=== PATIENT | female | born 1940 | race Caucasian/White ===

== ENCOUNTER 2019-10-09 12:36 | Outpatient (CLI) | payer OTHER, SELFPAY ==
--- NOTE | ~2019-10-09 | US_ITS ---
EXAMINATION: US art doppler w press LE BI EXAM DATE: 10/09/2019 14:08 INDICATION: Carotid bruit. Leg edema and discoloration. Diabetes. Claudication at one block. TECHNIQUE: Segmental pressures and plethysmographic and Doppler waveforms of the brachial and lower e xtremity arteries were obtained. There is no prior study for comparison. FINDINGS: Right and left brachial artery pressures of 144 mm Hg and 162 mm Hg, respectively, are concordant (no rmal difference <= 30 mmHg). RIGHT LEG: The ankle-brachial index (GILDARDO) is 0.65 (normal >= 0.9-1). The great toe-brachial index (TBI) is 0.33 (normal >= 0.65). The lower extremity ratios, segmental pressure gradients as follows; Proximal superficial femoral artery:- 0.51 (83 mmHg). Distal superficial femoral artery: ----- 0.49 (80 mmHg). Popliteal: 0.74 (120 mmHg). Dorsalis pedis: 0.41 (67 mmHg). Posterior tibial: 0.65 (106 mmHg). (Normal gradients <= 20-30 mmHg between adjacent levels on the same leg or the same levels on the two legs). Arterial waveforms are monophasic. LEFT LEG: The ankle-brachial index (GILDARDO) is 0.62 (normal >= 0.9-1). The great toe-brachial index (TBI) is 0.35 (normal >= 0.65). The lower extremity ratios, segmental pressure gradients as follows; Proximal superficial femoral artery:- Could not obtain ( mmHg). Distal superficial femoral artery: ----- 0.56 (90 mmHg). Popliteal: 0.52 (84 mmHg). Dorsalis pedis: 0.62 (101 mmHg). Posterior tibial: 0.49 (79 mmHg). (Normal gradients <= 20-30 mmHg between adjacent levels on the same leg or the same levels on the two legs). Arterial waveforms are monophasic. IMPRESSION: 1. Right ankle-brachial index 0.65, moderately decreased. 2. Left ankle-brachial index 0.62, moderately decreased. 3. Segmental pressures as above. Monophasic waveforms. Reviewed, dictated and finalized at location A.
--- NOTE | ~2019-10-09 | US_ITS ---
EXAMINATION: US carotid duplex BI DATE: 10/09/2019 14:07 INDICATION: Carotid bruit. TECHNIQUE: Grayscale, color Doppler, and pulsed Doppler images of the cervical carotid arteries were obtained. The degree of vessel stenosis is placed in one of the following categories: normal, <50%, 5 0-69%, >=70% but less than near-occlusion, near-occlusion, or total occlusion. Note that percent sten osis relative to normal distal artery lumen diameter is indirectly measured from velocity measurement s as described by Fili, et al. Radiology 2003; 229:340-346. COMPARISON: None. FINDINGS: RIGHT: The right common carotid artery (CCA) peak systolic velocity (PSV) is 82 cm/s. The right internal car otid artery (ICA) PSV is 79 cm/s. The right ICA end-diastolic velocity (EDV) is 14 cm/s. The right IC A/CCA PSV ratio is 1.0. Grayscale and color Doppler images yield an estimate of <50% diameter reducti on from plaque in the ICA. There is antegrade flow in the right vertebral artery. LEFT: The left CCA PSV is 89 cm/s. The left ICA PSV is 123 cm/s. The left ICA EDV is 16 cm/s. The left ICA/ CCA PSV ratio is 1.4. Grayscale and color Doppler images yield an estimate of <50% diameter reduction from plaque in the ICA. There is antegrade flow in the left vertebral artery. IMPRESSION: 1. <50% stenosis in the right internal carotid artery. 2. <50% stenosis in the left internal carotid artery. Reviewed, dictated and finalized at location A.
--- NOTE | ~2019-10-09 | US_ITS ---
EXAMINATION: US venous doppler [facility] DATE: 10/09/2019 14:07 INDICATION: Left lower limb swelling. TECHNIQUE: Grayscale ultrasound images without and with compression and Doppler ultrasound images of the left lower extremity veins were obtained. COMPARISON: None. FINDINGS: The visualized portions of left common femoral vein, profunda (deep) femoral vein, femoral vein, popl iteal vein, peroneal veins, posterior tibial veins, and greater saphenous vein outflow are patent. Th ere is thrombus in a left gastrocnemius vein. IMPRESSION: 1. Deep vein thrombosis involving a left gastrocnemius vein. Reviewed, dictated and finalized at location A.
== END 2019-10-09 12:37 | disposition home or self-care (01) ==
PROVIDERS: PCP Physician Assistant; Visit Provider Nurse Practitioner Adult Health
DX: R09.89 Other specified symptoms and signs involving the circulatory and respiratory systems (principal); R60.0 Localized edema; L81.9 Disorder of pigmentation, unspecified; I82.462 Acute embolism and thrombosis of left calf muscular vein; I65.23 Occlusion and stenosis of bilateral carotid arteries
CPT/HCPCS: 93880; 93923; 93971

== ENCOUNTER 2020-01-05 10:37 | Outpatient (CLI) | payer OTHER, SELFPAY ==
--- NOTE | ~2020-01-05 | NM_ITS ---
EXAMINATION: NM hepatobiliary wo pharm DATE: 01/05/2020 12:17 INDICATION: Right upper quadrant abdominal pain COMPARISON: CT dated 01/13/2019 TECHNIQUE: 4.7 mCi Tc-99m mebrofenin (Choletec) was administered intravenously. Scintigraphic images of the abdomen were obtained for one hour. . FINDINGS: There is normal clearance of radiotracer from the blood pool. There is homogeneous tracer uptake by t he liver. Activity progresses to the common bile duct by 15 minutes first activity seen in the bowel at 20 minutes. There is progressive clearance of activity extending to the bowel through the 60 lanre ovi of the study with no evident gallbladder activity. Correlation with prior CT demonstrates changes of prior cholecystectomy with suture/surgical clip at the termination of the remaining cystic duct a s well as a small amount of pneumobilia likely related to associated sphincterotomy. IMPRESSION: 1. Mild post cholecystectomy hepatobiliary scan. Reviewed, dictated and finalized at location A.
== END 2020-01-05 10:38 | disposition home or self-care (01) ==
LOC: ANHIMG 10:49
PROVIDERS: PCP Physician Assistant; Visit Provider Surgery
DX: R10.11 Right upper quadrant pain (principal); Z90.49 Acquired absence of other specified parts of digestive tract
CPT/HCPCS: 78226; A9537

== ENCOUNTER → 2020-01-08 09:11 | Outpatient (CLI) | payer OTHER, SELFPAY ==
--- NOTE | ~2020-01-08 | DEXA_ITS ---
Bone Density Report Name: Lina Little Age: 79 Sex: Female Ethnicity: White Date of : 1940 Indication: postmenopausal; screening for osteoporosis; height loss; inflammatory bowel disease; prior fracture; Referring Provider: VICKIE, LUH Study: Bone densitometry was performed. Exam Date: January 08, 2020 Accession number: [id number] Bone Density: Region BMD T-score Z-score Classification AP Spine (L1, L4) 1.027 -0.1 2.6 Normal Femoral Neck (Left) 0.603 -2.2 0.1 Osteopenia Total Hip (Left) 0.746 -1.6 0.5 Osteopenia World Health Organization criteria for BMD impression classify patients as: Normal (T-score at or above -1.0), Osteopenia (T-score between -1.0 and -2.5), or Osteoporosis (T-score at or below -2.5). 10-year Fracture Risk: FRAX not reported because: Prior hip or vertebral fracture Clinical Information Provided by Patient: Have had a previous hip or vertebral fracture Has had a low trauma fracture Has used the following medications: Vitamin D, Calcium Has the following medical conditions: Inflammatory bowel diseases Patient maximum height was 62 Menopause Age: 44 No regular weight bearing exercise Drinks caffeinated beverages Onset of menses at age 9 Number of children 3 Impression: The patient has low bone mass, based on the Left Femoral Neck T-score. The patient has risk factors, including: previous fracture. Discussion: INCREASED RISK OF FRACTURE DUE TO HISTORY OF FRACTURE. The patient's previous fracture puts the patient at high risk of a future fracture. In untreated patients, the risk of osteoporotic fracture increases approximately two-fold for each 1.0 SD decrease in T-score. Low bone density is not the only risk factor for fracture; also consider factors such as patient's age, frailty or poor health, risk of falling, risk of injury, previous osteoporotic fracture, family history of osteoporosis, cigarette smoking, low body weight, etc. Not everyone with a low trauma fracture has osteoporosis; osteomalacia and other metabolic bone disorders should also be considered. Patients who have osteoporosis should be evaluated for specific diseases and conditions (secondary causes) that may cause or contribute to bone loss and fracture risk. National Osteoporosis Foundation (NOF) recommends pharmacologic intervention for patients with a prior hip or vertebral fracture regardless of BMD T-score. The patient should follow a healthful lifestyle (good nutrition with adequate calcium and vitamin D, and appropriate weight-bearing exercise). Follow-Up: Consider a repeat BMD and Vertebral Fracture Assessment (VFA) exam in 2 years or sooner if medically necessary, to reassess this patient's status. Reported by: [place] on 01/08/2020 9:49:00 AM. Reviewed, dictated and finalized at location A. M
== END ==
PROVIDERS: PCP Physician Assistant; Visit Provider Physician Assistant
DX: Z78.0 Asymptomatic menopausal state (principal); M85.852 Other specified disorders of bone density and structure, left thigh
CPT/HCPCS: 77080

== ENCOUNTER 2020-01-09 07:44 | Outpatient (CLI) | payer OTHER, SELFPAY ==
--- NOTE | ~2020-01-09 | US_ITS ---
EXAMINATION: US abdomen limited DATE: 01/09/2020 08:35 INDICATION: Right upper quadrant abdominal pain. TECHNIQUE: Multiple grayscale and Doppler ultrasound images of the abdomen were obtained. COMPARISON: CT dated 01/13/2019 and HIDA scan dated 01/05/2020 FINDINGS: The visualized proximal to mid inferior vena cava. 9 mm anechoic cyst at the head of the pancreas whi ch abuts the proximal portal vein without associated soft tissue component. Remainder of the pancreas appears normal with homogeneous increased echogenicity. Liver has normal echogenicity and contour, w ith a smooth surface. No liver lesion identified. No intrahepatic biliary duct dilation suspected. Po rtal venous flow was seen in the hepatopetal, normal direction and has normal Doppler waveform. The r ight kidney measures 10.5 cm in length with normal contour and echogenicity and no hydronephrosis. Ag ain seen is a small amount of perinephric fluid along the upper pole of the right kidney. Upon review of prior CT what is likely a poorly visualized decompressed gallbladder with thickened wa ll is seen at the gallbladder fossa. On the prior study the gallbladder similarly decompressed measur ing approximately 3.3 x 1.3 cm with tiny focus of internal pneumobilia and nearly indistinguishable f rom the adjacent duodenum. Given the similar appearance on both the current ultrasound and prior CT a nd the lack of appreciable radiotracer cannulation on the intervening HIDA scan this would be most co nsistent with a scarred down gallbladder related to chronic cholecystitis. On a couple of CT images t he wall of the gallbladder appears contiguous with the duodenum giving the initial appearance on CT t hat it was a portion of the duodenum. This along with the presence of pneumobilia suggests the possib ility of a chronic bilioenteric fistula between the fundus of the gallbladder and the duodenal bulb. IMPRESSION: 1. Persistently small decompressed gallbladder with wall thickening, pneumobilia on prior CT and no a ccumulation of radiotracer on intervening HIDA scan suggesting a scarred down gallbladder related to chronic cholecystitis and with potential for biliary enteric fistula. 2. Nonspecific 9 mm simple appearing anechoic cyst at the head of the pancreas which appears subtly p resent on prior CT. The differential diagnosis includes pseudocyst, intraductal papillary mucinous ne oplasm (IPMN), mucinous cystic neoplasm (MCN), and the less common serous cystadenoma and neuroendocr ine tumor. Correlate for history of pancreatitis. Consider two-year follow-up MRI. Reviewed, dictated and finalized at location B. IMPRESSION: 1. Persistently small decompressed gallbladder with wall thickening, pneumobili a on prior CT and no accumulation of radiotracer on intervening HIDA scan sugge sting a scarred down gallbladder related to chronic cholecystitis and with pote ntial for biliary enteric fistula. 2. Nonspecific 9 mm simple appearing anechoic cyst at the head of the pancreas which appears subtly present on prior CT. The differential diagnosis includes p seudocyst, intraductal papillary mucinous neoplasm (IPMN), mucinous cystic neop lasm (MCN), and the less common serous cystadenoma and neuroendocrine tumor. Co rrelate for history of pancreatitis. Consider two-year follow-up MRI.
== END 2020-01-09 07:45 ==
PROVIDERS: PCP Physician Assistant; Visit Provider Surgery
DX: R10.11 Right upper quadrant pain (principal); K82.9 Disease of gallbladder, unspecified; K86.2 Cyst of pancreas
CPT/HCPCS: 76705

== ENCOUNTER 2020-01-19 10:16 | Outpatient (CLI) | payer OTHER, SELFPAY ==
--- NOTE | ~2020-01-19 | CT_ITS ---
EXAMINATION: CT abdomen w con DATE: 01/19/2020 10:44 INDICATION: Gallbladder fistula TECHNIQUE: Computed tomography (CT) of the abdomen was performed with 100 cc Omnipaque 350 intravenou s contrast. Automated exposure control and iterative reconstruction technique were employed. Exam dos e: 386.96 mGy-cm total exam DLP. COMPARISON: 01/13/2019 CT abdomen pelvis FINDINGS: The lung bases are clear of infiltrate or consolidation. Cardiomegaly. No pericardial or pl eural effusion. Small sliding hiatal hernia. There is pneumobilia, likely secondary to sphincterotomy and/or cholecystectomy. Bile ducts are of no rmal caliber. No hepatic space-occupying mass lesion. Normal splenic size. No pancreatic calcifications consistent with chronic pancreatitis. The adrenal glands are normal. Occasional small bilateral renal cysts. No urinary tract calculus or hydroureteronephrosis is evident. Prominent calcification of the descending thoracic and abdominal aorta and iliac arteries and at the origins of the celiac and superior mesenteric arteries. No intraperitoneal or retroperitoneal mass le ganesh or adenopathy or ascites. Normal appendix. Diffuse osteopenia. Multilevel degenerative disc disease throughout the lumbar and lumbosacral spine, most severe at L5-S1. There is degenerative change at the apophyseal joints with associated grade 1 anterolisthesis at L4-5. Chronic compression fracture deformity at inferior vertebral endplate of T12. Chronic compression deformity at the superior vertebral endplate of L3. IMPRESSION: Status post cholecystectomy; again noted is pneumobilia, likely secondary to sphincterot maik and/or cholecystectomy Occasional bilateral small renal cysts Compression fracture deformities of T12 and L3 Multilevel degenerative disc disease of the lumbar and lumbosacral spine Grade 1 anterolisthesis at L4-5 due to degenerative change at the apophyseal joints Reviewed, dictated and finalized at Location A. Reviewed, dictated and finalized at location A. IMPRESSION: Status post cholecystectomy; again noted is pneumobilia, likely se condary to sphincterotomy and/or cholecystectomy Occasional bilateral small renal cysts Compression fracture deformities of T12 and L3 Multilevel degenerative disc disease of the lumbar and lumbosacral spine Grade 1 anterolisthesis at L4-5 due to degenerative change at the apophyseal jessica ints
[2020-01-19 10:38] LABS: Estimated Glomerular Filt Rate > 60
== END 2020-01-19 10:17 | disposition home or self-care (01) ==
LOC: ANHIMG 10:21
PROVIDERS: PCP Physician Assistant; Visit Provider Surgery
DX: K82.3 Fistula of gallbladder (principal); Z90.49 Acquired absence of other specified parts of digestive tract; M48.54XA Collapsed vertebra, not elsewhere classified, thoracic region, initial encounter for fracture; M51.36 Other intervertebral disc degeneration, lumbar region; M43.16 Spondylolisthesis, lumbar region
CPT/HCPCS: 74160; Q9967

== ENCOUNTER 2020-07-03 10:15 | Observation (INO) | payer OTHER, SELFPAY ==
[2020-07-03] VITALS (29 sets, daily range): BP systolic 124–164; BP diastolic 36–73; PULSE 57–78; RESP 12–30; TEMP 36.3–37.1; O2SAT 95–100; BMI 26.4
--- NOTE | ~2020-07-03 | XR_ITS ---
EXAMINATION: XR chest 1V portable EXAM DATE: 07/03/2020 15:12 INDICATION: History atrial fibrillation, hypertension. Right lower quadrant pain with vomiting. Const ipation. TECHNIQUE: Portable AP frontal chest x-ray was obtained. Comparison is made to prior examination from 01/12/2019. FINDINGS: The lungs are clear. There are no pleural effusions. Mild cardiomegaly. There is aortic a rteriosclerosis. There is no pneumothorax suspected. Right greater than left shoulder osteoarthrit is. IMPRESSION: No acute cardiopulmonary findings. Reviewed, dictated and finalized at location B. 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
--- NOTE | ~2020-07-03 | CT_ITS ---
EXAMINATION: CT abdomen pelvis w con DATE: 07/03/2020 14:58 INDICATION: Abdominal pain. Nausea, vomiting, diarrhea. TECHNIQUE: Computed tomography (CT) of the abdomen and pelvis was performed with 100 cc Omnipaque 350 intravenous contrast. Automated exposure control and iterative reconstruction technique were employe d. Exam dose: 595.51 mGy-cm total exam DLP. COMPARISON: 01/19/2020 CT abdomen FINDINGS: Cardiomegaly. No pericardial or pleural effusion. The lung bases are clear of infiltrate or consolidation. There is mild discoid atelectasis or scarrin g at the base of the lingula and anterior basal segment of the left lower lobe. Small sliding hiatal hernia. The gallbladder is absent. This likely accounts for minimal prominence of the bile ducts. No pancreat ic duct dilatation. There are scattered pancreatic calcifications, consistent with chronic pancreatit is, noted previously. Normal splenic size. Normal morphology of the adrenal glands. Scattered bilateral renal cysts, measuring up to 11 mm on the right and 12 mm on the left. There is a rim of soft tissue density with attenuation of the 117 Hounsfield units along the posterom edial aspect of the upper and mid and lower aspect of the left kidney. There is irregular diminished enhancement of the posteromedial mid right kidney at the area of most prominent peripheral soft tissu e thickening. Differential diagnosis includes pyelonephritis with subcapsular spread of infection argelia mihir less likely renal laceration and hematoma. No urinary tract calculus or hydroureteronephrosis is noted on either side. The urinary bladder is un remarkable. Uterus and adnexal areas are unremarkable as well. There is extensive calcification of the abdominal aorta but no abdominal aortic aneurysm. Prominent c alcification of iliac arteries. Normal appendix. There are numerous diverticula of the sigmoid colon; no CT evidence of diverticulitis. There is soft tissue thickening of the wall of the sigmoid and particularly the descending colon with some pericolic mild fat stranding. The findings suggest colitis, which might be infectious, inflamma tory or ischemic. There is prominent calcification at the origins of the celiac, superior mesenteric and inferior mesenteric arteries. Diffuse osteopenia. Mild compression fracture deformity at T8 and T12. Multilevel degenerative disease of the lumbar and lumbosacral spine. Degenerative changes apophyseal joints with grade 1 anterolisthesis at L4-5. Compression screw and intramedullary hans of proximal right femur for old intertrochanteric fracture. IMPRESSION: Mild soft tissue density cuff around the right kidney, with similar density of the adjac ent renal parenchyma there is minimal represent pyelonephritis and subcapsular infection versus renal laceration and subcapsular hematoma less likely. Bilateral renal cysts Diverticulosis of the sigmoid colon; no CT evidence of diverticulitis Soft tissue thickening of the wall of the sigmoid and descending colon; differential diagnosis includ es infectious, inflammatory or ischemic colitis Extensive vascular calcification of the abdominal aorta, and origins of celiac, superior mesenteric a nd inferior mesenteric arteries Status post cholecystectomy Cardiomegaly Reviewed, dictated and finalized at [facility]. Reviewed, dictated and finalized at [facility]. 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 Bilateral renal cysts Diverticulosis of the sigmoid colon; no CT evidence of div
--- NOTE | 2020-07-03 11:14 | PC.NURSE ---
Report to ANGEL Liu, to continue care.
--- NOTE | 2020-07-03 12:37 | PC.NURSE ---
patient calls out to this nurse while this nurse attempting to provide care to patient in next room with each intervention with that patient. patient making requests such as wanting the light turned down, or covers being pulled up or down. patient called out to nurse while drawing blood on patient in next bed and requested her barf bag be moved a few inches closer to her on the over bed table and became angry that request wasnt met in a more timely manner
[2020-07-03] MEDS: METOCLOPRAMIDE HCL INJ 10 MG/2 ML VIAL IV PUSH (13:51)
[2020-07-03 14:08] LABS: Basophils Percent Auto 0.2 % (0.2-1.2); Eosinophils Percent Auto 0.1 % (0-4.4); Hematocrit 40.2 % (37.0-47.0); Hemoglobin 12.8 g/dL (12.0-15.0); Immature Granulocyte Absolute 0.08 K/mm3 (0.00-0.031); Immature Granulocyte Percent A 0.5 % (0-0.5); Lymphocytes Absolute Auto 1.52 K/mm3 (0.9-3.2); Lymphocytes Percent Auto 8.7 % (18.3-44.2); Mean Corpuscular HGB Conc 31.8 g/dl (32-36); Mean Corpuscular Hemoglobin 28.3 pg (26-34); Mean Corpuscular Volume 88.9 fl (80-100); Mean Platelet Volume 9.8 fl (7.4-10.4); Monocytes Absolute Auto 1.8 K/mm3 (0.1-0.6); Monocytes Percent Auto 10.3 % (2.6-8.5); Neutrophils Absolute Auto 14.1 K/mm3 (1.3-6.7); Neutrophils Percent Auto 80.2 % (45.5-73.1); Platelet Count Result 298 k/mm3 (150-375); Red Blood Count 4.52 M/mm3 (4.2-5.4); Red Cell Distribution Width 15.5 % (11.5-14.5); White Blood Count 17.6 K/mm3 (4.5-10.0)
[2020-07-03 14:23] LABS: Alanine Aminotransferase 36 U/L (4-35); Albumin Level 4.1 g/dL (3.5-5.1); Alkaline Phosphatase 229 U/L (38-126); Anion Gap 5 mmol/L (8-16); Aspartate Amino Transferase 39 U/L (14-36); Bilirubin,Total 0.4 mg/dL (0.2-1.3); Blood Urea Nitrogen 27 mg/dL (7-17); Calcium 9.1 mg/dL (8.4-10.2); Carbon Dioxide 28 mmol/L (22-30); Chloride 103 mmol/L (98-107); Estimated CRCL calculation 37 ml/min; Estimated Glomerular Filt Rate 60; Glucose 209 mg/dL (65-105); Lipase 232 U/L (23-300); Potassium 4.3 mmol/L (3.4-5.0); Sodium 136 mmol/L (137-145)
--- NOTE | 2020-07-03 15:32 | PC.NURSE ---
informed patient that provider has requested a urine specimen. patient stated she will not try unless she gets some water. refused straight cath . PA made aware
--- NOTE | 2020-07-03 16:34 | ED.ABDPAIN ---
HPI - Abdominal Pain General Chief Complaint: Abdominal Pain <Ernie Solis PA-C - Last Filed: 07/03/20 20:06> Stated Complaint: abd pain/n/v <Ernie Solis PA-C - Last Filed: 07/03/20 20:06> Source: patient <Ernie Solis PA-C - Last Filed: 07/03/20 20:06> Mode of arrival: EMS <Ernie Solis PA-C - Last Filed: 07/03/20 20:06> Limitations: no limitations <Ernie Solis PA-C - Last Filed: 07/03/20 20:06> History of Present Illness HPI narrative: Patient presents with chief complaint of lower abdominal cramping and bloating that is accompanied by multiple episodes of bowel movements that began when she got home. Patient was here in emergency department last night with her family member and did not have any symptoms. Went home to take her medications and then began having abdominal pain, with few episodes of vomiting, and multiple bowel movements so the DCFS worker called EMS. Patient was given Zofran but via EMS and her vomiting has stopped however she has continued to have some bowel movements. They is not bloody or mucus in it. She states she has had abdominal pain for years and alternating diarrhea and constipation. She takes Lomotil for diarrhea but has not taken any today. She has chronic cholecystitis and pancreatitis and a ventral hernia which she has seen Dr Beltrán for but states he wont fix due to her anticoagulation for chronic afib and a left leg DVT last year. She states she feels weak and can not ambulate and needs to stay in the hospital. She denies recent falls or extremity injuries, chest pain, SOB, leg pain, fevers, cough chills, or urinary symptoms. <Ernie Solis PA-C - Last Filed: 07/03/20 20:06> Related Data Home Medications: Home Medications Medication Instructions Recorded Confirmed amiodarone 200 mg tablet 200 mg PO DAILY 12/12/19 07/03/20 apixaban 2.5 mg tablet 2.5 mg PO BID 12/12/19 07/03/20 atorvastatin 10 mg tablet 10 mg PO DAILY 12/12/19 07/03/20 cholecalciferol (vitamin D3) 25 25 mcg PO DAILY 12/12/19 07/03/20 mcg (1,000 unit) chewable tablet diphenoxylate-atropine 2.5 1 tablet PO PRN PRN 12/12/19 07/03/20 mg-0.025 mg tablet levothyroxine 125 mcg capsule 125 mcg PO DAILY 12/12/19 07/03/20 lisinopril 40 mg tablet 40 mg PO DAILY 12/12/19 07/03/20 metoprolol tartrate 25 mg tablet 25 mg PO DAILY 12/12/19 07/03/20 zolpidem 5 mg tablet 5 mg PO HS 12/12/19 07/03/20 amlodipine 10 mg PO DAILY 07/03/20 07/03/20 insulin glargine [Lantus U-100 16 unit SUBCUT HS 07/03/20 07/03/20 Insulin] metformin 850 mg PO BID 07/03/20 07/03/20 artificial tears with lanolin [Eye 1 applic EACH EYE HS 07/04/20 07/04/20 Lubricant] carboxymethylcellulose sodium 1 drp EACH EYE 4-6XD PRN 07/04/20 07/04/20 [Refresh] vit C,L-Eq-yptpk-lutein-zeaxan 1 tablet PO BID 07/04/20 07/04/20 [PreserVision AREDS-2] <Ernie Solis PA-C - Last Filed: 07/03/20 20:06> Allergies/Adverse Reactions: Allergies Allergy/AdvReac Type Severity Reaction Status Date / Time gluten Allergy Unknown Unknown Verified 07/03/20 18:47 <Ernie Solis PA-C - Last Filed: 07/03/20 20:06> Review of Systems Review of Systems: Narrative: CONSTITUTIONAL: Denies fever, chills, or sweats. EYES: Denies visual changes, redness, or discharge. ENT: Denies rhinorrhea, congestion, sore throat, or otalgia. CARDIOVASCULAR: Denies chest pain, palpitations, or edema. RESPIRATORY: Denies cough or dyspnea. GASTROINTESTINAL: Reports bloating, abdominal pain, nausea, vomiting, or diarrhea. GENITOURINARY: Denies dysuria or hematuria. SKIN: Denies rash or itching. MUSCULOSKELETAL: Denies back pain, myalgia, or joint pain NEUROLOGIC: Reports weakness Denies headache, numbness, dizzines PSYCHIATRIC: Denies anxiety or depression. <Ernie Solis PA-C - Last Filed: 07/03/20 20:06> [facility] Past Medical History Medical History: Medical History (Updated 07/05/20 @ 15:47 by Reba Godwin PA-C) Anemi
--- NOTE | 2020-07-03 18:26 | PC.NURSE ---
This patient, Lina Little, was admitted to Medical Room 250-01. Patient/family oriented to hospital policies and general routines including ID bracelet, bed and alarms, visiting hours, pain management, procedures, bathroom and other care routines, personal items, smoking policy, room service/diet, and visiting hours. Information on how to activate the Rapid Response Team has been discussed. Patient/Family are encouraged to report perceived risks to care and to ask questions if they do not understand what they are told or what they should do.
[2020-07-03 18:41] LABS: Glucose Point of Care 180 (65-105)
--- NOTE | 2020-07-03 19:25 | PM.IMHP ---
H&P: HPI History of Present Illness Date/Time: 07/03/20 19:25 Chief Complaint: Abdominal pain, nausea, and vomiting. Narrative: This is a pleasant 80-year-old female with insulin-dependent diabetes, atrial fibrillation on long-term anticoagulation, hypertension, and hypothyroidism who presented to the emergency department earlier today via EMS from home for evaluation of abdominal pain, nausea, and vomiting. She was in the emergency department last night with a family member who was being seen and was feeling in her usual state of health at that time. Not long after she returned home last evening she developed diffuse abdominal pain and had several episodes of nausea and vomiting. She has a difficult time describing the pain but it sounds like she has had intermittent cramping. Today she passed a large amount of soft stool and since that time she has has passed numerous loose, watery green/yellow stools. CT of the abdomen and pelvis showed findings of sigmoid descending colon colitis and she is being admitted in this setting. CT also showed findings of possible pyelonephritis however she does not have any symptoms to suggest such. She specifically denies urinary hesitancy, urgency, and dysuria. She denies sick contacts, recent travel, and recent antibiotic use. Review of Systems Review of Systems: Narrative: Twelve systems were reviewed with pertinent positives and negatives as per HPI. She denies fever, chills, and sweats. No recent cold or flu symptoms. No cough or shortness of breath. She denies chest pain. Continues to have mild nausea but has not had episodes of emesis since arrival to the floor. No UTI symptoms. Except as documented, all other systems were reviewed and are negative. [facility] Past Medical History Medical History (Updated 07/03/20 @ 19:35 by Stephania Ybarra PA-C) Anemia Atrial fibrillation Celiac disease Chronic anticoagulation Deep vein thrombosis of left lower extremity (~12/2019) Gastroesophageal reflux disease History of paroxysmal supraventricular tachycardia Hyperlipemia Hypertension Hypothyroidism Insulin dependent type 2 diabetes mellitus Iron deficiency anemia Left bundle branch block Osteoarthritis Osteoporosis Surgical History Surgical History (Updated 07/03/20 @ 19:31 by Stephania Ybarra PA-C) Hip fracture (~05/2016) Status post IT Gamma hans. History of bilateral cataract extraction History of cholecystectomy History of patellar fracture Status post ORIF. History of surgery on upper extremity Right elbow surgery as a child after fracture. History of tonsillectomy Family History Family History (Updated 07/03/20 @ 19:31 by Stephania Ybarra PA-C) Other Adopted Unknown family medical history Social History Social History (Updated 07/03/20 @ 19:32 by Stephania Ybarra PA-C) Social History: Surrogate decision maker: Karey Richards, granddaughter. Code status: Full code. Smoking packs per day: 3 Smoking cigarettes per day: 60.0 Years smoked: 50 Smoking pack-years: 150.00 Smoking status: Former smoker Tobacco type: cigarettes Smoking end date: 05/10/95 Additional smoking assessment comments: 2 to 3 packs of cigarettes per day for about 40 years. Alcohol intake: never Substance use: never Substance use type: does not use Additional living arrangements comments: The patient is . She lives in [place] with her teenaged adopted twin sons. 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 Gender identity (if verbalized by the patient): Female Spiritual care concerns: No Meds Home Medications and Allergies Home Medications Medication Instructions Recorded Confirmed Type amiodarone 200 mg tablet 200 mg PO DAILY 12/12/19 07/03/20 History apixaban 2.5 mg tablet 2.5 mg PO BID 12/12/19 07/03/20 History atorvastatin 10 mg tablet 10 mg PO DAILY 12/12/19 07/03/20 History cholecalciferol (vitamin D3) 25
[2020-07-03] MEDS: SODIUM CHLORIDE 0.9% IV 1,000 ML 75 ML IV CONT (19:57)
[2020-07-03] MEDS: ZOLPIDEM TARTRATE (*CRX) 5 MG TABLET PO (20:13)
[2020-07-03] MEDS: INSULIN GLARGINE (*BKC) 100 UNITS/ML 16 UNITS SUB-Q (20:14)
[2020-07-03] MEDS: APIXABAN 2.5 MG TABLET PO (20:15)
[2020-07-03] MEDS: ATORVASTATIN 10 MG TABLET PO (20:15)
[2020-07-03 21:26] LABS: Hemoglobin A1C 6.2 % (<5.7)
[2020-07-03 22:19] LABS: Glucose Point of Care 217 (65-105)
[2020-07-04] VITALS (7 sets, daily range): BP systolic 111–150; BP diastolic 40–55; PULSE 62–68; RESP 16; TEMP 36.5–36.7; O2SAT 92–100
[2020-07-04 05:16] LABS: Add Urine Microscopic? YES; Appearance Urine Cloudy (Clear); Bilirubin Urine Negative (Negative); Blood Urine Negative (Negative); Color Urine Yellow (Yellow); Glucose Urine UA Negative (Negative); Ketones Urine Negative (Negative); Leukocyte Esterase Ur 3+ LEU/UL (Negative); Nitrate Urine Positive (Negative); Protein Urine 2+ mg/dL (Negative); Squamous Epithelial Cell Urine Few /hpf (Few); Urobilinogen Urine Negative mg/dL (<2.0); WBC Clumps Urine Present /HPF; WBC Urine >75 /hpf
[2020-07-04 05:26] LABS: Hemoglobin 10.7 g/dL (12.0-15.0); Mean Corpuscular HGB Conc 31.5 g/dl (32-36); Mean Corpuscular Hemoglobin 27.7 pg (26-34); Mean Corpuscular Volume 88.1 fl (80-100); Mean Platelet Volume 9.9 fl (7.4-10.4); Platelet Count Result 274 k/mm3 (150-375); Red Blood Count 3.86 M/mm3 (4.2-5.4); Red Cell Distribution Width 15.7 % (11.5-14.5); White Blood Count 13.2 K/mm3 (4.5-10.0)
[2020-07-04 05:51] LABS: Alanine Aminotransferase 26 U/L (4-35); Albumin Level 3.3 g/dL (3.5-5.1); Alkaline Phosphatase 106 U/L (38-126); Anion Gap 3 mmol/L (8-16); Aspartate Amino Transferase 31 U/L (14-36); Bilirubin,Total 0.4 mg/dL (0.2-1.3); Blood Urea Nitrogen 25 mg/dL (7-17); Calcium 8.2 mg/dL (8.4-10.2); Carbon Dioxide 30 mmol/L (22-30); Chloride 102 mmol/L (98-107); Estimated CRCL calculation 37 ml/min; Estimated Glomerular Filt Rate 60; Glucose 97 mg/dL (65-105); Magnesium 1.9 mg/dL (1.6-2.3); Sodium 135 mmol/L (137-145)
[2020-07-04 05:56] LABS: Specific Grav Ur 1.036 (1.001-1.035)
[2020-07-04] MEDS: LEVOTHYROXINE SODIUM 125 MCG TABLET PO (06:10)
[2020-07-04 07:47] LABS: Glucose Point of Care 95 (65-105)
[2020-07-04] MEDS: amLODIPine BESYLATE 5 MG TABLET 10 MG PO (08:46)
[2020-07-04] MEDS: CHOLECALCIFEROL 1,000 UNITS TABLET 1000 UNITS PO (08:46)
[2020-07-04] MEDS: lisinopriL 20 MG TABLET 40 MG PO (08:47)
[2020-07-04] MEDS: METOPROLOL SUCCINATE EXT REL 25 MG TABCR PO (08:47)
[2020-07-04] MEDS: AMIODARONE HCL 200 MG TABLET PO (08:48)
[2020-07-04] MEDS: APIXABAN 2.5 MG TABLET PO ×2 (08:48→16:39)
[2020-07-04] MEDS: SODIUM CHLORIDE 0.9% IV 1,000 ML 75 ML IV CONT ×2 (10:09→23:27)
[2020-07-04 11:32] LABS: Glucose Point of Care 162 (65-105)
--- NOTE | 2020-07-04 13:08 | PM.IMPN ---
Progress Note: A&P Assessment and Plan (1) Colitis: Code(s): K52.9 - Noninfective gastroenteritis and colitis, unspecified Status: Acute Assessment and Plan: Patient presents with abdominal pain with diarrhea, nausea, vomiting. Evidence of colitis on CT abd/pel. Infectious colitis is suspected, stool studies are pending. Less likely ischemic colitis given some improvement with antibiotics. Continue IV Zosyn (day 1). Continue supportive care with IV hydration and antiemetics. Leukocytosis improving. (2) Dehydration: Code(s): E86.0 - Dehydration Status: Acute Assessment and Plan: Improving with IV hydration. Will keep IV fluids on until she is eating a little better. (3) Abnormal computed tomography of abdomen and pelvis: Code(s): R93.5 - Abnormal findings on diagnostic imaging of other abdominal regions, including retroperitoneum Status: Acute Assessment and Plan: Evidence questionably consistent with pyelonephritis. She is unsure of any symptoms today however she tells me she thinks she had a UTI at home due to dysuria. She remains covered on IV Zosyn (day 1) with urine cultures pending. 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 Blood sugars stable today. Continue her home lantus, monitor with accu-cheks and adjust treatment as needed, cover with SSI. (5) Atrial fibrillation: Qualifiers: Atrial fibrillation type: unspecified Qualified Code(s): I48.91 - Unspecified atrial fibrillation Code(s): I48.91 - Unspecified atrial fibrillation Status: Chronic Assessment and Plan: Rate controlled on her home amiodarone and metoprolol. On long-term anticoagulation with Eliquis. (6) Chronic anticoagulation: Code(s): Z79.01 - vermin exterminator (current) use of anticoagulants Status: Chronic Assessment and Plan: Continue Eliquis. No signs or symptoms of acute bleeding. (7) Hypertension: Qualifiers: Hypertension type: essential hypertension Qualified Code(s): I10 - Essential (primary) hypertension Code(s): I10 - Essential (primary) hypertension Status: Chronic Assessment and Plan: Blood pressures are variable. 111/55 then 150/43 today. Continue home norvasc, metoprolol. Monitor BP and adjust treatment as needed. (8) Hypothyroidism: Qualifiers: Hypothyroidism type: unspecified Qualified Code(s): E03.9 - Hypothyroidism, unspecified Code(s): E03.9 - Hypothyroidism, unspecified Status: Chronic Assessment and Plan: Continue home levothyroxine. (9) Elevated LFTs: Code(s): R79.89 - Other specified abnormal findings of blood chemistry Status: Resolved Assessment and Plan: Mild transaminits may have been reactive from acute illness and is resolved. Additional Plan Patient tells me she was supposed to get a test done for Dr Pham's office, but she is not able to drive and has no one to take her to the test so she has been unable to get it done. She is hopeful it can be done while she is in the hospital, but cannot tell me details about what the test actually is. I can try to contact his office tomorrow for more information. Subjective Date/time seen: 07/04/20 1300 Interval history: Ms. Little is an 80yo F admitted for colitis. She reports she is feeling a little bit better than yesterday. Her abdom
--- NOTE | 2020-07-04 15:01 | PC.NURSE ---
On 07/04/20, the student, [Yobany Alvarez ], provided care and completed [facility] documentation on this patient. I have reviewed the student's documentation and agree with the findings.
[2020-07-04] MEDS: ATORVASTATIN 10 MG TABLET PO (16:40)
[2020-07-04 17:06] LABS: Glucose Point of Care 130 (65-105)
[2020-07-04] MEDS: OPTI-GEN TAB 1 TABLET PO (18:03)
[2020-07-04] MEDS: ZOLPIDEM TARTRATE (*CRX) 5 MG TABLET PO (21:10)
[2020-07-04] MEDS: INSULIN GLARGINE (*BKC) 100 UNITS/ML 16 UNITS SUB-Q (21:11)
[2020-07-04 22:41] LABS: Glucose Point of Care 130 (65-105)
[2020-07-05] VITALS (7 sets, daily range): BP systolic 128–147; BP diastolic 43–58; PULSE 59–80; RESP 16–18; TEMP 35.7–36.2; O2SAT 98–100
[2020-07-05 05:24] LABS: Basophils Absolute Auto 0.1 K/mm3 (0.0-0.1); Basophils Percent Auto 0.5 % (0.2-1.2); Eosinophils Absolute Auto 0.3 K/mm3 (0-0.3); Eosinophils Percent Auto 3.3 % (0-4.4); Hematocrit 31.1 % (37.0-47.0); Hemoglobin 9.7 g/dL (12.0-15.0); Immature Granulocyte Absolute 0.03 K/mm3 (0.00-0.031); Immature Granulocyte Percent A 0.3 % (0-0.5); Lymphocytes Absolute Auto 2.83 K/mm3 (0.9-3.2); Lymphocytes Percent Auto 29.8 % (18.3-44.2); Mean Corpuscular HGB Conc 31.2 g/dl (32-36); Mean Corpuscular Hemoglobin 27.7 pg (26-34); Mean Corpuscular Volume 88.9 fl (80-100); Mean Platelet Volume 10.1 fl (7.4-10.4); Monocytes Absolute Auto 0.9 K/mm3 (0.1-0.6); Monocytes Percent Auto 9.9 % (2.6-8.5); Neutrophils Absolute Auto 5.3 K/mm3 (1.3-6.7); Neutrophils Percent Auto 56.2 % (45.5-73.1); Platelet Count Result 234 k/mm3 (150-375); Red Cell Distribution Width 15.9 % (11.5-14.5); White Blood Count 9.5 K/mm3 (4.5-10.0)
[2020-07-05 05:46] LABS: Alanine Aminotransferase 24 U/L (4-35); Alkaline Phosphatase 68 U/L (38-126); Anion Gap 2 mmol/L (8-16); Aspartate Amino Transferase 29 U/L (14-36); Bilirubin,Total 0.3 mg/dL (0.2-1.3); Blood Urea Nitrogen 13 mg/dL (7-17); Calcium 7.9 mg/dL (8.4-10.2); Carbon Dioxide 29 mmol/L (22-30); Chloride 109 mmol/L (98-107); Estimated CRCL calculation 47 ml/min; Estimated Glomerular Filt Rate > 60; Glucose 62 mg/dL (65-105); Magnesium 1.8 mg/dL (1.6-2.3); Potassium 3.7 mmol/L (3.4-5.0); Sodium 140 mmol/L (137-145)
[2020-07-05] MEDS: LEVOTHYROXINE SODIUM 125 MCG TABLET PO (06:14)
[2020-07-05 07:33] LABS: Glucose Point of Care 76 (65-105)
[2020-07-05] MEDS: METOPROLOL SUCCINATE EXT REL 25 MG TABCR PO (10:05)
[2020-07-05] MEDS: APIXABAN 2.5 MG TABLET PO ×2 (10:06→16:47)
[2020-07-05] MEDS: AMIODARONE HCL 200 MG TABLET PO (10:06)
[2020-07-05] MEDS: CHOLECALCIFEROL 1,000 UNITS TABLET 1000 UNITS PO (10:07)
[2020-07-05] MEDS: OPTI-GEN TAB 1 TABLET PO ×2 (10:07→16:47)
[2020-07-05] MEDS: amLODIPine BESYLATE 5 MG TABLET 10 MG PO (10:07)
[2020-07-05] MEDS: lisinopriL 20 MG TABLET 40 MG PO (10:08)
[2020-07-05] MEDS: SODIUM CHLORIDE 0.9% IV 1,000 ML 75 ML IV CONT (12:07)
[2020-07-05 12:29] LABS: Glucose Point of Care 111 (65-105)
--- NOTE | 2020-07-05 13:58 | PM.IMPN ---
Progress Note: A&P Assessment and Plan (1) Colitis: Code(s): K52.9 - Noninfective gastroenteritis and colitis, unspecified Status: Acute Assessment and Plan: Patient presents with abdominal pain with diarrhea, nausea, vomiting. Evidence of colitis on CT abd/pel. Still with lots of diarrhea this morning. Infectious colitis is suspected, stool studies are pending. Ischemic colitis less likely. Continue IV Zosyn (day 2). Continue supportive care with IV hydration and antiemetics. Leukocytosis resolved. (2) Dehydration: Code(s): E86.0 - Dehydration Status: Resolved Assessment and Plan: Improved with IV hydration. Will stop fluids and monitor. (3) Abnormal computed tomography of abdomen and pelvis: Code(s): R93.5 - Abnormal findings on diagnostic imaging of other abdominal regions, including retroperitoneum Status: Acute Assessment and Plan: Evidence questionably consistent with pyelonephritis. She is unsure of any symptoms today however she tells me she thinks she had a UTI at home due to dysuria. Urine culture grew slight less than 50,000 E coli thus this does not seem consistent with pyelonephritis. She remains covered while on IV Zosyn (day 2) . 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 Blood sugars stable today. Continue her home lantus, monitor with accu-cheks and adjust treatment as needed, cover with SSI. (5) Atrial fibrillation: Qualifiers: Atrial fibrillation type: unspecified Qualified Code(s): I48.91 - Unspecified atrial fibrillation Code(s): I48.91 - Unspecified atrial fibrillation Status: Chronic Assessment and Plan: Rate controlled on her home amiodarone and metoprolol. On long-term anticoagulation with Eliquis. (6) Chronic anticoagulation: Code(s): Z79.01 - intermodal customer service (current) use of anticoagulants Status: Chronic Assessment and Plan: Continue Eliquis. No signs or symptoms of acute bleeding. (7) Hypertension: Qualifiers: Hypertension type: essential hypertension Qualified Code(s): I10 - Essential (primary) hypertension Code(s): I10 - Essential (primary) hypertension Status: Chronic Assessment and Plan: Blood pressures are stable maintained on home norvasc, metoprolol. Monitor BP and adjust treatment as needed. (8) Hypothyroidism: Qualifiers: Hypothyroidism type: unspecified Qualified Code(s): E03.9 - Hypothyroidism, unspecified Code(s): E03.9 - Hypothyroidism, unspecified Status: Chronic Assessment and Plan: Continue home levothyroxine. Additional Plan Patient tells me she was supposed to get a test done for Dr Pham's office, but she is not able to drive and has no one to take her to the test so she has been unable to get it done. She is hopeful it can be done while she is in the hospital, but cannot tell me details about what the test actually is. I can try to contact his office for more information. (EDIT: It was a chest x-ray that Dr Pham ordered in April. She had a chest XR here this admission which is normal.) Subjective Date/time seen: 07/05/20 1100 Interval history: Ms. Little is an 80yo F admitted for colitis. She was feeling a little better yesterday but unfortunately now this morning she has already had diarrhea 3 times before 11am. She feels nauseous without vomiting. Abdominal cramping was present this m
--- NOTE | 2020-07-05 16:07 | PC.NURSE ---
On 07/05/20, the student, [Saw Colindres ], provided care and completed [facility] documentation on this patient. I have reviewed the student's documentation and agree with the findings.
[2020-07-05] MEDS: ATORVASTATIN 10 MG TABLET PO (16:48)
[2020-07-05 17:10] LABS: Glucose Point of Care 124 (65-105)
[2020-07-05] MEDS: ZOLPIDEM TARTRATE (*CRX) 5 MG TABLET PO (20:52)
[2020-07-05] MEDS: INSULIN GLARGINE (*BKC) 100 UNITS/ML 16 UNITS SUB-Q (20:52)
[2020-07-05 21:14] LABS: Glucose Point of Care 213 (65-105)
[2020-07-06 05:27] LABS: Basophils Absolute Auto 0.1 K/mm3 (0.0-0.1); Basophils Percent Auto 0.7 % (0.2-1.2); Eosinophils Absolute Auto 0.5 K/mm3 (0-0.3); Hematocrit 35.5 % (37.0-47.0); Hemoglobin 11.1 g/dL (12.0-15.0); Immature Granulocyte Absolute 0.03 K/mm3 (0.00-0.031); Immature Granulocyte Percent A 0.3 % (0-0.5); Lymphocytes Absolute Auto 3.06 K/mm3 (0.9-3.2); Lymphocytes Percent Auto 34.3 % (18.3-44.2); Mean Corpuscular HGB Conc 31.3 g/dl (32-36); Mean Corpuscular Hemoglobin 28.2 pg (26-34); Mean Corpuscular Volume 90.1 fl (80-100); Mean Platelet Volume 9.9 fl (7.4-10.4); Monocytes Absolute Auto 0.9 K/mm3 (0.1-0.6); Monocytes Percent Auto 9.8 % (2.6-8.5); Neutrophils Absolute Auto 4.5 K/mm3 (1.3-6.7); Neutrophils Percent Auto 49.9 % (45.5-73.1); Platelet Count Result 244 k/mm3 (150-375); Red Blood Count 3.94 M/mm3 (4.2-5.4); Red Cell Distribution Width 15.5 % (11.5-14.5); White Blood Count 8.9 K/mm3 (4.5-10.0)
[2020-07-06 05:46] VITALS: BP 146/50; PULSE 56; RESP 18; TEMP 36.1; O2SAT 100
[2020-07-06 05:49] LABS: Anion Gap 4 mmol/L (8-16); Blood Urea Nitrogen 14 mg/dL (7-17); Calcium 8.6 mg/dL (8.4-10.2); Carbon Dioxide 30 mmol/L (22-30); Chloride 106 mmol/L (98-107); Estimated CRCL calculation 42 ml/min; Estimated Glomerular Filt Rate > 60; Glucose 106 mg/dL (65-105); Magnesium 1.8 mg/dL (1.6-2.3); Potassium 4.1 mmol/L (3.4-5.0); Sodium 140 mmol/L (137-145)
[2020-07-06] MEDS: LEVOTHYROXINE SODIUM 125 MCG TABLET PO (06:10)
[2020-07-06 07:28] LABS: Glucose Point of Care 122 (65-105)
[2020-07-06 09:46] VITALS: PULSE 68
[2020-07-06] MEDS: lisinopriL 20 MG TABLET 40 MG PO (09:46)
[2020-07-06] MEDS: AMIODARONE HCL 200 MG TABLET PO (09:46)
[2020-07-06] MEDS: CHOLECALCIFEROL 1,000 UNITS TABLET 1000 UNITS PO (09:46)
[2020-07-06] MEDS: OPTI-GEN TAB 1 TABLET PO ×2 (09:46→17:07)
[2020-07-06] MEDS: amLODIPine BESYLATE 5 MG TABLET 10 MG PO (09:47)
[2020-07-06] MEDS: APIXABAN 2.5 MG TABLET PO ×2 (09:47→17:07)
[2020-07-06 09:52] VITALS: RESP 18; O2SAT 100
[2020-07-06 10:00] VITALS: PULSE 68
[2020-07-06] MEDS: METOPROLOL SUCCINATE EXT REL 25 MG TABCR PO (10:00)
[2020-07-06 11:35] LABS: IFOB Positive Control Positive; Immunochemical Fecal Occult Bl Positive (N)
[2020-07-06 11:40] LABS: Glucose Point of Care 188 (65-105)
[2020-07-06 14:05] VITALS: BP 132/40; PULSE 59; RESP 18; TEMP 35.9; O2SAT 100
--- NOTE | 2020-07-06 15:22 | PM.DS ---
DS: Admitting Diagnosis Admitting Diagnosis Admitting Diagnosis: Colitis DS: Discharge Diagnosis Discharge Diagnosis (1) Colitis: Code(s): K52.9 - Noninfective gastroenteritis and colitis, unspecified Status: Acute Assessment and Plan: Date of Admission 07/03/20 Date of Discharge/DOS 07/06/20 Ms. Little is a pleasant 80yo F with insulin-dependent diabetes, atrial fibrillation on long-term anticoagulation, hypertension, and hypothyroidism who presented to the ED for evaluation of nausea, vomiting, abdominal pain and diarrhea. CT abdomen/pelvis demonstrated evidence of sigmoid descending colon colitis and she was started on IV zosyn. She continued to have significant diarrhea with incontinence through her admission until day of discharge. She was treated with supportive care with antiemetics and IV hydration. Today she is clinically improved overall and is feeling well enough to discharge home with home health. She is hemodynamically stable for discharge 07/06/19 with oral levaquin and flagyl to complete the course and instructions to follow up with PCP. Patient presents with abdominal pain with diarrhea, nausea, vomiting. Evidence of colitis on CT abd/pel. Infectious colitis is suspected. Ischemic colitis less likely. Treated with 3 days IV zosyn and discharged with oral abx to complete the course. Treated with IV hydration and antiemetics. Leukocytosis resolved. (2) Dehydration: Code(s): E86.0 - Dehydration Status: Resolved Assessment and Plan: Improved with IV hydration. (3) Abnormal computed tomography of abdomen and pelvis: Code(s): R93.5 - Abnormal findings on diagnostic imaging of other abdominal regions, including retroperitoneum Status: Acute Assessment and Plan: CT evidence questionably consistent with pyelonephritis. She is unsure of any symptoms today however she tells me she thinks she had a UTI at home due to dysuria. Urine culture grew slight less than 50,000 E coli thus this does not seem consistent with pyelonephritis. Abx as mentioned above. 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 Blood sugars stable today. Continue her home lantus at discharge and f/u with PCP. (5) Atrial fibrillation: Qualifiers: Atrial fibrillation type: unspecified Qualified Code(s): I48.91 - Unspecified atrial fibrillation Code(s): I48.91 - Unspecified atrial fibrillation Status: Chronic Assessment and Plan: Rate controlled on her home amiodarone and metoprolol. On long-term anticoagulation with Eliquis. (6) Chronic anticoagulation: Code(s): Z79.01 - retirement (current) use of anticoagulants Status: Chronic Assessment and Plan: Continue Eliquis. No signs or symptoms of acute bleeding. (7) Hypertension: Qualifiers: Hypertension type: essential hypertension Qualified Code(s): I10 - Essential (primary) hypertension Code(s): I10 - Essential (primary) hypertension Status: Chronic Assessment and Plan: Blood pressures are stable maintained on home norvasc, metoprolol. (8) Hypothyroidism: Qualifiers: Hypothyroidism type: unspecified Qualified Code(s): E03.9 - Hypothyroidism, unspecified Code(s): E03.9 - Hypothyroidism, unspecified Status: Chronic Assessment and Plan: Continue home levothyroxine. DS: Tatum
[2020-07-06 16:54] LABS: Glucose Point of Care 132 (65-105)
[2020-07-06] MEDS: ATORVASTATIN 10 MG TABLET PO (17:08)
== END 2020-07-06 18:55 | disposition home health service (06) ==
LOC: ANHED 16:44 → ANH2MED 17:49
PROVIDERS: Physician Assistant; Admitting Provider Family Medicine; Emergency Provider Emergency Medicine; PCP Physician Assistant; Visit Provider Physician Assistant
DX: K52.9 Noninfective gastroenteritis and colitis, unspecified (principal); E86.0 Dehydration; R93.5 Abnormal findings on diagnostic imaging of other abdominal regions, including retroperitoneum; R79.89 Other specified abnormal findings of blood chemistry; I48.91 Unspecified atrial fibrillation; E11.9 Type 2 diabetes mellitus without complications; I10 Essential (primary) hypertension; E78.5 Hyperlipidemia, unspecified; E03.9 Hypothyroidism, unspecified; D50.9 Iron deficiency anemia, unspecified; K21.9 Gastro-esophageal reflux disease without esophagitis; M81.0 Age-related osteoporosis without current pathological fracture; M19.90 Unspecified osteoarthritis, unspecified site; I44.7 Left bundle-branch block, unspecified; Z86.718 Personal history of other venous thrombosis and embolism; Z87.891 Personal history of nicotine dependence; Z79.01 Long term (current) use of anticoagulants; Z79.4 Long term (current) use of insulin; Z79.84 Long term (current) use of oral hypoglycemic drugs
CPT/HCPCS: 36415; 71045; 74177; 80048; 80053; 81001; 82274; 82948; 83036; 83690; 83735; 84443; 85025; 85027; 87015; 87040; 87045; 87046; 87077; 87086; 87088; 87186; 87269; 87272; 87427; 96361; 96365; 96366; 96375; 96376; 97110; 97116; 97161; 97165; 97530; 97535; 99285; A9270; G0378; J1815; J2543; J2765; J7030; Q9967

== ENCOUNTER 2021-01-25 01:51 | Emergency (ER) | payer OTHER, SELFPAY ==
--- NOTE | ~2021-01-25 | CT_ITS ---
EXAMINATION: CT brain wo con INDICATION: Head injury COMPARISON: None TECHNIQUE: Standard unenhanced head CT. The dose-length product (DLP) was 605.33 mGy-cm. The mA was a djusted according to patient size. Iterative reconstruction technique was employed. FINDINGS: There is no acute intraparenchymal hemorrhage. No evidence of mass lesion. No evidence of a cute infarction. There is mild periventricular and subcortical hypodensity probably related to small vessel ischemic disease. There is mild prominence of the sulci and ventricles related to cerebral atr ophy. Intracranial calcified cerebral atherosclerosis is noted. There are no extra-axial collections. There is no mass effect or midline shift. There is right periorbital soft tissue swelling. There is mild mucosal thickening of the paranasal sinuses. IMPRESSION: 1. Right periorbital soft tissue swelling without acute intracranial abnormality. 2. Age related findings. Reviewed, dictated and finalized at location [facility]. IMPRESSION: 1. Right periorbital soft tissue swelling without acute intracranial abnormalit y. 2. Age related findings.
--- NOTE | ~2021-01-25 | CT_ITS ---
EXAMINATION: CT facial & cervical spine wo DATE: 01/25/2021 02:44 INDICATION: Head injury TECHNIQUE: Computed tomography (CT) of the maxillofacial region and cervical spine was performed with out intravenous contrast. The dose-length product (DLP) was 220.91 mGy-cm. Automated exposure control and iterative reconstruction technique were employed. COMPARISON: None FINDINGS: MAXILLOFACIAL CT: There is right periorbital soft tissue swelling. There is an acute right nasal bone fracture. No hector tional facial bone fracture is identified. A tiny fluid level is present in the right maxillary sinus . Changes in the globes are likely from ocular lens surgery. The orbits are intact. CERVICAL SPINE CT: There is an age-indeterminate fracture of the posterior C1 arch on the right. No additional fracture is identified. Inflammatory pannus surrounds the dens. There are 2 mm of anterolisthesis of C3 on C4 and C4 on C5. There is moderate to severe loss of intervertebral disc space height from C4-5 through C6-7. Small degenerative osteophytes project from the anterior endplates of multiple vertebral bodies . The prevertebral soft tissues are normal. IMPRESSION: 1. Acute right nasal bone fracture. 2. Age-indeterminate fracture of the right posterior C1 arch. 3. Severe cervical spondylosis. Reviewed, dictated and finalized at location [facility].
[2021-01-25 01:48] VITALS: BP 130/51; PULSE 64; RESP 16; TEMP 36.3; O2SAT 100
--- NOTE | 2021-01-25 02:31 | PC.NURSE ---
PT to CT
[2021-01-25 02:51] VITALS: BP 125/48; PULSE 58; RESP 16; O2SAT 100
[2021-01-25] MEDS: TETANUS,DIPHTHERIA,AC PERTUSSIS ADULT (0.5 ML) BOOSTRIX IM (02:52)
--- NOTE | 2021-01-25 03:12 | ED.GENADULT ---
HPI - General Adult General Chief complaint: Fall Stated complaint: 1 lac after glf top of head Time Seen by Provider: 01/25/21 02:01 History of Present Illness HPI narrative: Patient 80-year-old female presents to emergency department with chief complaint of head injury. Patient reports that she was walking to the restroom and attempted to grab her cane but missed grabbing her cane and fell striking her head. Patient denied loss of consciousness reports she had a small laceration to her scalp. Patient reports she is unsure of when her last tetanus shot was. Patient denies any nausea vomiting denies any focal neurological deficit. Related Data Home Medications Medication Instructions Recorded Confirmed amiodarone 200 mg tablet 200 mg PO DAILY 12/12/19 07/03/20 apixaban 2.5 mg tablet 2.5 mg PO BID 12/12/19 07/03/20 atorvastatin 10 mg tablet 10 mg PO DAILY 12/12/19 07/03/20 cholecalciferol (vitamin D3) 25 25 mcg PO DAILY 12/12/19 07/03/20 mcg (1,000 unit) chewable tablet diphenoxylate-atropine 2.5 1 tablet PO PRN PRN 12/12/19 07/03/20 mg-0.025 mg tablet levothyroxine 125 mcg capsule 125 mcg PO DAILY 12/12/19 07/03/20 lisinopril 40 mg tablet 40 mg PO DAILY 12/12/19 07/03/20 metoprolol tartrate 25 mg tablet 25 mg PO DAILY 12/12/19 07/03/20 zolpidem 5 mg tablet 5 mg PO HS 12/12/19 07/03/20 Lantus U-100 Insulin 16 unit SUBCUT HS 07/03/20 07/03/20 amlodipine 10 mg PO DAILY 07/03/20 07/03/20 metformin 850 mg PO BID 07/03/20 07/03/20 PreserVision AREDS-2 1 tablet PO BID 07/04/20 07/04/20 artificial tears with lanolin 1 applic EACH EYE HS 07/04/20 07/04/20 carboxymethylcellulose sodium 1 drp EACH EYE 4-6XD PRN 07/04/20 07/04/20 Allergies Allergy/AdvReac Type Severity Reaction Status Date / Time gluten Allergy Unknown Unknown Verified 07/03/20 18:47 Review of Systems Review of Systems: A 10 system review of systems was completed on the patient and is negative except for what is stated in the HPI. Nursing and ancillary documentation was reviewed. [facility] Past Medical History Medical History Anemia Atrial fibrillation Celiac disease Chronic anticoagulation Deep vein thrombosis of left lower extremity (~12/2019) Gastroesophageal reflux disease History of paroxysmal supraventricular tachycardia Hyperlipemia Hypertension Hypothyroidism Insulin dependent type 2 diabetes mellitus Iron deficiency anemia Left bundle branch block Osteoarthritis Osteoporosis Surgical History Surgical History Hip fracture (~05/2016) Status post IT Gamma hasn. History of bilateral cataract extraction History of cholecystectomy History of patellar fracture Status post ORIF. History of surgery on upper extremity Right elbow surgery as a child after fracture. History of tonsillectomy Family History Family History Other Adopted Unknown family medical history Social History Social History Social History: Surrogate decision maker: Karey Richards, granddaughter. Code status: Full code. Smoking packs per day: 3 Smoking cigarettes per day: 60.0 Years smoked: 50 Smoking pack-years: 150.00 Smoking status: Former smoker Tobacco type: cigarettes Smoking end date: 05/10/95 Additional smoking assessment comments: 2 to 3 packs of cigarettes per day for about 40 years. Alcohol intake: never Substance use: never Substance use type: does not use Additional living arrangements comments: The patient is . She lives in [place] with her teenaged adopted twin sons. 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 Gender identity (if verbalized by the patient): Female Spiritual care concerns: No Exam Narrative: GENERAL: Well-appearing
[2021-01-25 03:48] VITALS: BP 125/40; PULSE 64; RESP 16; O2SAT 100
[2021-01-25 05:18] VITALS: BP 125/99; PULSE 61; RESP 16; O2SAT 100
== END 2021-01-25 05:20 | disposition short-term general hospital (02) ==
PROVIDERS: Emergency Provider Emergency Medicine; PCP Physician Assistant
DX: S12.030A Displaced posterior arch fracture of first cervical vertebra, initial encounter for closed fracture (principal); S01.01XA Laceration without foreign body of scalp, initial encounter; S02.2XXA Fracture of nasal bones, initial encounter for closed fracture; M47.812 Spondylosis without myelopathy or radiculopathy, cervical region; I48.91 Unspecified atrial fibrillation; K90.0 Celiac disease; Z86.718 Personal history of other venous thrombosis and embolism; K21.9 Gastro-esophageal reflux disease without esophagitis; E78.5 Hyperlipidemia, unspecified; I10 Essential (primary) hypertension; E03.9 Hypothyroidism, unspecified; E11.9 Type 2 diabetes mellitus without complications; D50.9 Iron deficiency anemia, unspecified; M19.90 Unspecified osteoarthritis, unspecified site; M81.0 Age-related osteoporosis without current pathological fracture; Z79.01 Long term (current) use of anticoagulants; Z79.4 Long term (current) use of insulin; Z98.42 Cataract extraction status, left eye; Z98.41 Cataract extraction status, right eye; Z87.891 Personal history of nicotine dependence; Z23 Encounter for immunization
CPT/HCPCS: 12001; 70450; 70486; 72125; 90471; 90715; 99285; L0140

== ENCOUNTER 2021-03-19 19:11 | Inpatient (IN) | payer OTHER, SELFPAY ==
--- NOTE | ~2021-03-19 | US_ITS ---
EXAMINATION: US venous doppler [facility] DATE: 03/21/2021 12:00 INDICATION: Lower limb edema. TECHNIQUE: Grayscale ultrasound images without and with compression and Doppler ultrasound images of the bilateral lower extremity veins were obtained. COMPARISON: Ultrasound 10/09/2019 FINDINGS: The visualized portions of right common femoral vein, profunda (deep) femoral vein, femoral vein, pop liteal vein, peroneal veins, posterior tibial veins, and greater saphenous vein outflow are patent. The visualized portions of left common femoral vein, profunda femoral vein, femoral vein, popliteal v ein, peroneal veins, posterior tibial veins, and greater saphenous vein outflow are patent. IMPRESSION: 1. No deep venous thrombosis. Reviewed, dictated and finalized at location A. STANT PASSENGER LOCOMOTIVE ENGINEER
--- NOTE | ~2021-03-19 | US_ITS ---
US abdomen limited INDICATION: Elevated liver function tests. PROCEDURE: Realtime right upper abdominal ultrasound. COMPARISON: No prior studies for comparison. FINDINGS: The pancreas is normal without focal mass or pancreatic ductal dilation. Liver echotexture is normal without focal mass or intrahepatic biliary dilatation. There is normal directional flow i n the portal vein. The gallbladder is normal without stones, gallbladder wall thickening or pericholecystic fluid. Comm on bile duct measures 4 mm. No sonographic Tan's sign. IMPRESSION: 1: Normal limited abdominal ultrasound. Reviewed, dictated and finalized at location A. LE ATTACHING MACHINE OPERATOR
--- NOTE | ~2021-03-19 | XR_ITS ---
EXAMINATION: XR chest 1V portable DATE: 03/22/2021 13:22 INDICATION: Pneumonia. TECHNIQUE: A single frontal view of the chest was obtained. COMPARISON: Chest single view 03/19/2021, CT abdomen and pelvis 07/03/2020 FINDINGS: There is a small left pleural effusion. There are airspace opacities at left lung base. No pneumothorax. Cardiomegaly is noted. IMPRESSION: 1. Stable small left pleural effusion. 2. Stable airspace opacities at left lung base, consistent with atelectasis versus pneumonia. 3. Cardiomegaly. Reviewed, dictated and finalized at location A. EQUIPMENT MAINTENANCE SUPERVISOR IMPRESSION: 1. Stable small left pleural effusion. 2. Stable airspace opacities at left lung base, consistent with atelectasis argelia mihir pneumonia. 3. Cardiomegaly.
--- NOTE | ~2021-03-19 | XR_ITS ---
EXAMINATION: XR chest 1V portable EXAM DATE: 03/19/2021 20:04 INDICATION: SOB X FEW DAYS HX A. FIB, HTN. TECHNIQUE: Portable AP frontal chest x-ray was obtained. Comparison is made to prior examination from 07/03/2020. FINDINGS: There is small to moderate left pleural effusion. There is cardiomegaly and pulmonary vascu lar congestion. Ill-defined left basilar edema or pneumonia, correlation. There is aortic arterioscle rosis. There is no pneumothorax suspected. The bones are osteopenic. There are bony degenerative ch anges. IMPRESSION: Cardiomegaly, congestion, small left pleural effusion. Ill-defined left basilar edema or pneumonia. Reviewed, dictated and finalized at location A. ON GILLNET VESSEL OPERATOR
[2021-03-19 19:16] VITALS: BP 149/70; PULSE 72; RESP 18; TEMP 36.7; O2SAT 96
--- NOTE | 2021-03-19 19:37 | ECG_ITS ---
Measurements Intervals [place] Rate: 67 P: 23 MT: 197 QRS: -31 QRSD: 182 T: 122 QT: 531 QTc: 563 Interpretive Statements SINUS RHYTHM LEFT AXIS DEVIATION LEFT BUNDLE BRANCH BLOCK INFERIOR INFARCT OR DUE TO LBBB EXTENSIVE ANTERIOR INFARCT OR DUE TO LBBB BASELINE ARTIFACT- I, II, III, AVR, AVL, AVF, V2-V6 ABNORMAL ECG Electronically Signed On 03-19-2021 20:16:51 [employer] by Jamie Fernandez D.O.
[2021-03-19 20:32] LABS: Basophils Percent Auto 0.1 % (0.2-1.2); Eosinophils Percent Auto 0.1 % (0-4.4); Hematocrit 36.7 % (37.0-47.0); Hemoglobin 12.3 g/dL (12.0-15.0); Immature Granulocyte Absolute 0.05 K/mm3 (0.00-0.031); Immature Granulocyte Percent A 0.5 % (0-0.5); Lymphocytes Absolute Auto 1.62 K/mm3 (0.9-3.2); Lymphocytes Percent Auto 15.8 % (18.3-44.2); Mean Corpuscular HGB Conc 33.5 g/dl (32-36); Mean Corpuscular Hemoglobin 28.2 pg (26-34); Mean Corpuscular Volume 84.2 fl (80-100); Mean Platelet Volume 9.1 fl (7.4-10.4); Monocytes Absolute Auto 0.8 K/mm3 (0.1-0.6); Monocytes Percent Auto 7.8 % (2.6-8.5); Neutrophils Absolute Auto 7.8 K/mm3 (1.3-6.7); Neutrophils Percent Auto 75.7 % (45.5-73.1); Nucleated Red Blood Cells Perc 0.3 % (0.0-0.2); Platelet Count Result 433 k/mm3 (150-375); Red Blood Count 4.36 M/mm3 (4.2-5.4); Red Cell Distribution Width 18.5 % (11.5-14.5); White Blood Count 10.3 K/mm3 (4.5-10.0)
[2021-03-19 20:45] LABS: Alanine Aminotransferase 142 U/L (4-35); Albumin Level 3.4 g/dL (3.5-5.1); Alkaline Phosphatase 427 U/L (38-126); Anion Gap 9 mmol/L (8-16); Aspartate Amino Transferase 82 U/L (14-36); Bilirubin,Total 0.8 mg/dL (0.2-1.3); Blood Urea Nitrogen 26 mg/dL (7-17); Calcium 8.6 mg/dL (8.4-10.2); Carbon Dioxide 24 mmol/L (22-30); Chloride 91 mmol/L (98-107); Estimated CRCL calculation 39 ml/min; Estimated Glomerular Filt Rate 60; Glucose 197 mg/dL (65-110); Potassium 5.7 mmol/L (3.4-5.0); Sodium 124 mmol/L (137-145)
[2021-03-19 20:53] LABS: NT Pro B Type Natriuretic Pept > 35000 pg/mL (5-100)
[2021-03-19 21:01] LABS: Add Urine Microscopic? YES; Appearance Urine Turbid (Clear); Bacteria Urine 2+ /hpf; Bilirubin Urine Negative (Negative); Color Urine Yellow (Yellow); Glucose Urine UA Negative (Negative); Ketones Urine Trace mg/dL (Negative); Leukocyte Esterase Ur 2+ LEU/UL (Negative); Mucus Urine Heavy /lpf; Nitrate Urine Negative (Negative); Protein Urine 2+ mg/dL (Negative); RBC Urine 21-50 /hpf (0-2); Specific Grav Ur 1.029 (1.001-1.035); Squamous Epithelial Cell Urine Moderate /hpf (Few); Urobilinogen Urine Negative mg/dL (<2.0); WBC Urine >75 /hpf
--- NOTE | 2021-03-19 21:16 | ED.GENADULT ---
HPI - General Adult General Chief complaint: Upper Respiratory Infection Stated complaint: SOB/anxiety Time Seen by Provider: 03/19/21 19:22 Source: patient Mode of arrival: EMS Limitations: no limitations History of Present Illness HPI narrative: 80-year-old with a history of hypertension, A. fib on long-term anticoagulation, diabetes, C1 fracture presently on aspen collar, pelvic fracture presently in the rehab center here with complaints of cough and shortness of breath for past few days. She states that she is unable to cough up phlegm because of her call. She denied any chest pain, fever or chills. No history of nausea or vomiting. Onset (ago): day(s) (2) Exacerbating factors: none Associated symptoms: denies other symptoms Related Data Home Medications Medication Instructions Recorded Confirmed amiodarone 200 mg tablet 200 mg PO DAILY 12/12/19 07/03/20 apixaban 2.5 mg tablet 2.5 mg PO BID 12/12/19 07/03/20 atorvastatin 10 mg tablet 10 mg PO DAILY 12/12/19 07/03/20 cholecalciferol (vitamin D3) 25 25 mcg PO DAILY 12/12/19 07/03/20 mcg (1,000 unit) chewable tablet diphenoxylate-atropine 2.5 1 tablet PO PRN PRN 12/12/19 07/03/20 mg-0.025 mg tablet levothyroxine 125 mcg capsule 125 mcg PO DAILY 12/12/19 07/03/20 lisinopril 40 mg tablet 40 mg PO DAILY 12/12/19 07/03/20 metoprolol tartrate 25 mg tablet 25 mg PO DAILY 12/12/19 07/03/20 zolpidem 5 mg tablet 5 mg PO HS 12/12/19 07/03/20 Lantus U-100 Insulin 16 unit SUBCUT HS 07/03/20 07/03/20 amlodipine 10 mg PO DAILY 07/03/20 07/03/20 metformin 850 mg PO BID 07/03/20 07/03/20 PreserVision AREDS-2 1 tablet PO BID 07/04/20 07/04/20 artificial tears with lanolin 1 applic EACH EYE HS 07/04/20 07/04/20 carboxymethylcellulose sodium 1 drp EACH EYE 4-6XD PRN 07/04/20 07/04/20 Allergies Allergy/AdvReac Type Severity Reaction Status Date / Time gluten Allergy Unknown Unknown Verified 01/25/21 04:19 Review of Systems Review of Systems: All systems reviewed & are unremarkable except as noted in HPI and below Constitutional: Constitutional: Reports no additional constitutional complaints Eyes: Eyes: Reports no additional eye complaints ENT: Reports system reviewed and no additional complaints, except as documented Cardiovascular: Cardiovascular: Reports no additional cardiovascular complaints Respiratory: Respiratory: Reports as per HPI Gastrointestinal: Gastrointestinal: Reports no additional gastrointestinal complaints Musculoskeletal: Musculoskeletal: Reports no additional musculoskeletal complaints Integumentary/Breasts: Skin/Breast: Reports system reviewed and no additional complaints, except as docu Neurologic: Reports system reviewed and no additional complaints, except as documented Psychiatric: Psychiatric: Reports no additional psychiatric complaints PMFSH Past Medical History Medical History Anemia Atrial fibrillation Celiac disease Chronic anticoagulation Deep vein thrombosis of left lower extremity (~12/2019) Gastroesophageal reflux disease History of paroxysmal supraventricular tachycardia Hyperlipemia Hypertension Hypothyroidism Insulin dependent type 2 diabetes mellitus Iron deficiency anemia Left bundle branch block Osteoarthritis Osteoporosis Surgical History Surgical History Hip fracture (~05/2016) Status post IT Gamma hans. History of bilateral cataract extraction History of cholecystectomy History of patellar fracture Status post ORIF. History of surgery on upper extremity Right elbow surgery as a child after fracture. History of tonsillectomy Family History Family History Other Adopted Unknown family medical history Social History Social History Social History: Surrogate decision maker: Karey Richards, granddaughter.
[2021-03-19] MEDS: FUROSEMIDE INJ 40 MG/4 ML VIAL IV PUSH (21:18)
[2021-03-19 22:03] VITALS: BP 134/82; PULSE 81; RESP 20; O2SAT 97
[2021-03-19 22:06] LABS: Blood Urine Negative (Negative)
--- NOTE | 2021-03-19 22:32 | PM.IMHP ---
H&P: HPI History of Present Illness Date/Time: 03/19/21 22:32 Chief Complaint: Shortness of breath Narrative: This is an 80-year-old female with past medical history significant for atrial fibrillation, hypertension, depression, hypothyroidism, type 2 diabetes mellitus insulin dependent, right hip fracture, recent fall with C1 fracture on Maurice collar currently residing in a rehabilitation facility the patient was brought to the emergency room after staff concerns for the patient's shortness of breath and productive cough. Patient denies any fevers, any rigors, any chills, any nausea, vomiting, abdominal pain, diarrhea ,has had poor appetite, impart due to the presence of Maurice collar, which makes it difficult for her to chew. Preliminary workup was significant for a sodium 124, a potassium of 5.7, a brain natriuretic peptide of 35,000, a chest x-ray showed left pleural effusion and infiltrate and a urinalysis was significant for numerous wbc's present. Patient has been admitted for further evaluation, management and treatment. Review of Systems Review of Systems: Shortness of breath, cough, generalized weakness and fatigue, poor appetite. Constitutional: Constitutional: Denies chills, Reports fatigue, Denies fever(s), Reports lethargy, Denies malaise, Denies night sweats, Reports poor appetite and Reports weakness Eyes: Eyes: Denies change in vision ENT: Denies dysphagia, Denies vertigo, Denies dizziness, Denies nasal congestion, Denies nasal discharge, Denies nasal obstruction and Denies odynophagia Cardiovascular: Cardiovascular: Reports pedal edema, Denies irregular heart rhythm, Denies claudication, Reports leg edema, Denies lightheadedness, Denies radiating jaw, neck or arm pain, Denies palpitations, Reports dyspnea, Reports dyspnea on exertion, Denies orthopnea and Denies paroxysmal nocturnal dyspnea Respiratory: Respiratory: Reports cough, Reports excessive phlegm production and Reports dyspnea Gastrointestinal: Gastrointestinal: Denies abdominal pain, Denies diarrhea, Denies nausea and Denies vomiting Genitourinary: Genitourinary: Reports no additional female genitourinary complaints, Reports as per HPI and Denies dysuria Musculoskeletal: Musculoskeletal: Reports arthralgias (Right hip), Denies joint swelling and Reports limited range of motion Integumentary/Breasts: Skin/Breast: Denies rash Neurologic: Denies vertigo, Denies dizziness, Denies syncope, Denies focal weakness and Denies Sensory deficit (Neuro) Psychiatric: Psychiatric: Reports no additional psychiatric complaints and Reports as per HPI Endocrine: Endocrine: Reports no additional endocrine complaints and Reports as per HPI Hematologic/Lymphatic: Hematologic/Lymphatic: Reports no additional hematologic/lymphatic complaints and Reports as per HPI Allergic/Immunologic: Allergic/Immunologic: Reports no additional allergic/immunologic complaints and Reports as per HPI [facility] Past Medical History Medical History (Updated 03/20/21 @ 02:45 by Michael Blair MD) Anemia Atrial fibrillation Celiac disease Chronic anticoagulation Deep vein thrombosis of left lower extremity (~12/2019) Gastroesophageal reflux disease History of paroxysmal supraventricular tachycardia Hyperlipemia Hypertension Hypothyroidism Insulin dependent type 2 diabetes mellitus Iron deficiency anemia Left bundle branch block Osteoarthritis Osteoporosis Surgical History Surgical History Hip fracture (~05/2016) Status post IT Gamma hans. History of bilateral cataract extraction History of cholecystectomy History of patellar fracture Status post ORIF. History of surgery on upper extremity Right elbow surgery as a child after fracture. History of tonsillectomy Family History Family History Other Adopted Unknown family medical history Social History Social History (Reviewed
[2021-03-19 23:53] VITALS: BP 141/82; PULSE 68; RESP 20; O2SAT 96
[2021-03-20] VITALS (12 sets, daily range): BP systolic 123–124; BP diastolic 54–67; PULSE 65–74; RESP 16–18; TEMP 36.1–36.5; O2SAT 97; BMI 26.4
--- NOTE | 2021-03-20 | ECHO_ITS ---
Patient Info Name: Lina Little Age: 80 years : 1940 Gender: Female Ht: 61 in Wt: 154 lbs BSA: 1.76 m2 HR: 72 bpm BP: 123 / 67 mmHg Heart Rhythm: Indeterminant Technical Quality: Good Exam Date: 03/20/2021 9:58 AM Exam Location: [facility] Patient Status: Inpatient Admit Date: 03/20/2021 Staff Ordering Physician: Galo Menendez MD Preparer Making Department: Gail Sifuentes RDCS Attending Provider: Cristina Chowdary PA-C Exam Type: CA echo doppler color flow Study Info Indications - NEW ONSET CHF Complete two-dimensional, color flow and Doppler transthoracic echocardiogram is performed. Summary 1. Complete two-dimensional, color flow and Doppler transthoracic echocardiogram is performed. 2. Mild left ventricular enlargement with normal wall thickness. Severe left ventricular hypokinesis with an estimated ejection fraction 15-20% visually, calculated EF of 18%. 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 Grade 2 diastolic dysfunction is present. 3. Right ventricular chamber dimension is mildly enlarged. 4. Left atrial chamber dimension is severely enlarged. 5. There is mild mitral valve regurgitation. 6. There is moderate tricuspid valve regurgitation with moderate hypokinesis. Now well visualized. 7. Moderate pulmonary hypertension, estimated pulmonary arterial systolic pressure is 55 mmHg. 8. Dilated inferior vena cava with <50% collapse upon inspiration consistent with significantly elevated right atrial pressure, 15 mmHg. 9. There is mild aortic atherosclerosis. 10. Pleural effusion present. 11. There is a significant amount of sludge and heavy spontaneous contrast in the inferior vena cava. Cannot rule out thrombus. Left Ventricle Left ventricular chamber dimension is mildly enlarged. Left ventricular systolic function is normal, estimated at 15-20%. There is no increased left ventricular wall thickness. Left ventricular septal wall motion is abnormal with septal motion related to bundle branch block. The left ventricular diastolic function is grade II diastolic dysfunction. Right Ventricle Right ventricular chamber dimension is mildly enlarged. Right ventricular systolic function is reduced. Left Atria Left atrial chamber dimension is severely enlarged. Right Atria Right atrial chamber dimension is normal. Aortic Valve The aortic valve is trileaflet. There is moderate aortic valve sclerosis. There is no aortic valve stenosis. There is no aortic valve regurgitation. Pulmonic Valve The pulmonic valve is normal. There is no pulmonic valve stenosis. There is no pulmonic regurgitation. Mitral Valve The mitral valve has normal leaflets. There is no mitral valve stenosis. There is mild mitral valve regurgitation. The mitral valve annulus is moderately calcified. Tricuspid Valve The tricuspid valve leaflets are normal. There is no significant tricuspid valve stenosis. There is moderate tricuspid valve regurgitation with moderate hypokinesis. Now well visualized. Moderate pulmonary hypertension, estimated pulmonary arterial systolic pressure is 55 mmHg. Pericardium/Pleural The pericardium appears normal. There is no pericardial effusion. Inferior Vena Cava Dilated inferior vena cava with <50% collapse upon inspiration consistent with significantly elevated right atrial pressure, 15 mmHg. Aorta The aortic root size at the sinus of [place]
--- NOTE | 2021-03-20 00:30 | ADMGEN ---
This patient, Lina Little, was admitted to Medical Room 349-01. Patient/family oriented to hospital policies and general routines including ID bracelet, bed and alarms, visiting hours, pain management, procedures, bathroom and other care routines, personal items, smoking policy, room service/diet, and visiting hours. Information on how to activate the Rapid Response Team has been discussed. Patient/Family are encouraged to report perceived risks to care and to ask questions if they do not understand what they are told or what they should do.
[2021-03-20 01:32] LABS: Troponin I 0.025 ng/mL (0.000-0.034)
[2021-03-20 01:32] LABS: Glucose Point of Care 182 mg/dl (65-105)
[2021-03-20 04:08] LABS: Basophils Percent Auto 0.2 % (0.2-1.2); Eosinophils Percent Auto 0.2 % (0-4.4); Hematocrit 34.8 % (37.0-47.0); Hemoglobin 11.4 g/dL (12.0-15.0); Immature Granulocyte Absolute 0.04 K/mm3 (0.00-0.031); Immature Granulocyte Percent A 0.4 % (0-0.5); Lymphocytes Absolute Auto 1.73 K/mm3 (0.9-3.2); Lymphocytes Percent Auto 19.4 % (18.3-44.2); Mean Corpuscular HGB Conc 32.8 g/dl (32-36); Mean Corpuscular Hemoglobin 28.3 pg (26-34); Mean Corpuscular Volume 86.4 fl (80-100); Mean Platelet Volume 9.1 fl (7.4-10.4); Monocytes Absolute Auto 0.7 K/mm3 (0.1-0.6); Monocytes Percent Auto 8.3 % (2.6-8.5); Neutrophils Absolute Auto 6.4 K/mm3 (1.3-6.7); Neutrophils Percent Auto 71.5 % (45.5-73.1); Nucleated Red Blood Cells Perc 0.3 % (0.0-0.2); Platelet Count Result 363 k/mm3 (150-375); Red Blood Count 4.03 M/mm3 (4.2-5.4); Red Cell Distribution Width 18.5 % (11.5-14.5); White Blood Count 8.9 K/mm3 (4.5-10.0)
[2021-03-20 04:26] LABS: Anion Gap 7 mmol/L (8-16); Blood Urea Nitrogen 25 mg/dL (7-17); Calcium 8.2 mg/dL (8.4-10.2); Carbon Dioxide 27 mmol/L (22-30); Chloride 90 mmol/L (98-107); Estimated CRCL calculation 37 ml/min; Estimated Glomerular Filt Rate 60; Glucose 191 mg/dL (65-110); Potassium 4.9 mmol/L (3.4-5.0); Sodium 124 mmol/L (137-145)
[2021-03-20 04:37] LABS: Troponin I 0.026 ng/mL (0.000-0.034)
[2021-03-20] MEDS: LEVOTHYROXINE SODIUM 125 MCG TABLET PO (05:42)
[2021-03-20 07:44] LABS: Glucose Point of Care 161 mg/dl (65-105)
--- NOTE | 2021-03-20 08:54 | PCOTNOTE ---
Attempted to see for evaluation, pt. getting ECHO, will follow-up when available
[2021-03-20] MEDS: OPTI-GEN TAB 1 TABLET PO ×2 (09:36→17:04)
[2021-03-20] MEDS: amLODIPine BESYLATE 5 MG TABLET 10 MG PO (09:36)
[2021-03-20] MEDS: AMIODARONE HCL 100 MG TABLET PO (09:36)
[2021-03-20] MEDS: DULoxetine HCL 30 MG CAPSULE.DR PO (09:37)
[2021-03-20] MEDS: guaiFENesin 12 HR 600 MG TABCR PO ×2 (09:37→20:19)
[2021-03-20] MEDS: METOPROLOL TARTRATE 25 MG TABLET PO ×2 (09:37→20:19)
[2021-03-20] MEDS: APIXABAN 2.5 MG TABLET PO ×3 (09:37→23:13)
[2021-03-20] MEDS: CHOLECALCIFEROL 1,000 UNITS TABLET 1000 UNITS PO (09:38)
[2021-03-20] MEDS: FUROSEMIDE INJ 40 MG/4 ML VIAL IV PUSH ×2 (09:38→17:05)
--- NOTE | 2021-03-20 10:54 | PM.CNCAR ---
Assessment and Plan Assessment and plan (1) Acute diastolic CHF (congestive heart failure): Code(s): I50.31 - Acute diastolic (congestive) heart failure Status: Acute Assessment and Plan: New onset of CHF, presumably diastolic. Echo pending Agree with furosemide 40 mg IV push b.i.d. Daily BMP (2) LBBB (left bundle branch block): Code(s): I44.7 - Left bundle-branch block, unspecified Status: Acute Assessment and Plan: LBBB noted (3) PAF (paroxysmal atrial fibrillation): Code(s): I48.0 - Paroxysmal atrial fibrillation Status: Acute Assessment and Plan: History of paroxysmal atrial fibrillation,remaining in NSR on amiodarone, anticoagulated with apixaban. (4) Falls: Code(s): W19.XXXA - Unspecified fall, initial encounter Status: Acute Assessment and Plan: Frequent falls due to loss of balance, with a pelvic fracture and C1 fracture. Currently nonambulatory so will continue Eliquis. Will reassess anticoagulation as recovery and mobility progress. (5) Acute hyperkalemia: Code(s): E87.5 - Hyperkalemia Status: Acute Assessment and Plan: Resolved. (6) Hyponatremia: Code(s): E87.1 - Hypo-osmolality and hyponatremia Status: Acute Assessment and Plan: DAily BMPs while on IV fursemide (7) On amiodarone therapy: Code(s): Z79.899 - Other terminal operator (current) drug therapy Status: Acute Assessment and Plan: Needs to have CXR, thyroid and liver monitored. No evidence of pulmonary toxicity. TSH was normal. Elevated LFTs noted; may be 2nd CHF but if they do not improve may need to consider amiodarone as a cause. 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 Blair for our advice and opinion regarding new onset of CHF, in consultation. She has a history of paroxysmal AFib on Eliquis and amiodarone, hypertension and diabetes. She currently is at [facility] recovering from a C1 fracture and pelvic fracture. Ms. Little is not a very precise historian but apparently was having shortness of breath and TOLBERT for 2 days to 2 weeks ART SPECIALIST, with orthopnea. Slight chronic pedal edema left foot. Minimal cough. Brief palpitations. Some left chest discomfort which was sore to touch, occurring at rest in the evenings. Not eating well and avoids salt. She apparently called EMS by herself yesterday and was brought to the emergency room and found to be in congestive heart failure. She has been admitted to the floor and is getting furosemide at 40 mg IV push b.i.d.. The patient states that she has had about 4 falls in the last 2 months because she has problems with balance. No dizziness or syncope. She normally sees Dr. Pham in our office for follow-up of her atrial fibrillation. She had normal left ventricular function by echo in 2014. At that time her atrial fibrillation was quiescent and she seemed to be doing well. Her last office visit was July 2020 and she has had trouble keeping her appointments due to various medical problems and has not had her follow-up echo. Review of Systems Constitutional: Constitutional: Reports fatigue, Reports lethargy and Reports weakness ENT: Denies Normal hearing present and Denies epistaxis Cardiovascular: Cardiovascular: Denies chest pain, Reports pedal edema, Denies leg edema and Reports palpitations (brief) Comments: slight left foot edema at times Respiratory: Respiratory: Reports dyspnea and Reports dyspnea on exertion Gastrointestinal: Gastrointestinal: Denies abdominal pain and Reports diarrhea Genit
--- NOTE | 2021-03-20 11:01 | PM.IMPN ---
Progress Note: A&P Assessment and Plan (1) CHF (congestive heart failure): Qualifiers: Heart failure chronicity: acute Heart failure type: unspecified Qualified Code(s): I50.9 - Heart failure, unspecified <Cristina Chowdary PA-C - Last Filed: 03/20/21 15:37> Code(s): I50.9 - Heart failure, unspecified <Cristina Chowdary PA-C - Last Filed: 03/20/21 15:37> Status: Acute <Cristina Chowdary PA-C - Last Filed: 03/20/21 15:37> Assessment and Plan: Awaiting Echocardiogram to determine systolic vs diastolic CHF. CXR showing cardiomegaly, pulmonary congestion, small left pleural effusion, left basilar edema vs pneumonia. BNP >35,000 Started on IV Lasix 40 mg BID - she is diuretic naive and will monitor renal function and electrolytes closely Pending Echocardiogram results Ball catheter in place for strict I&Os Daily weight Strict intake and output Cardiology consulted and appreciate their input. Continue monitoring. <Cristina Chowdary PA-C - Last Filed: 03/20/21 15:37> (2) Lung infiltrate: Code(s): R91.8 - Other nonspecific abnormal finding of lung field <Cristina Chowdary PA-C - Last Filed: 03/20/21 15:37> Status: Acute <Cristina Chowdary PA-C - Last Filed: 03/20/21 15:37> Assessment and Plan: Patient is reporting orthopnea. I do not feel she has pneumonia, but she does report some post nasal drip and trouble coughing up sputum. Will obtain sputum culture Continue on broad-spectrum antibiotics at this time until sputum culture and urine culture returns and the will deescalate. Await blood cultures <Cristina Chowdary PA-C - Last Filed: 03/20/21 15:37> (3) Urinary tract infection: Code(s): N39.0 - Urinary tract infection, site not specified <Cristina Chowdary PA-C - Last Filed: 03/20/21 15:37> Status: Acute <Cristina Chowdary PA-C - Last Filed: 03/20/21 15:37> Assessment and Plan: Hx of E. coli UTIs. Does report dark urine recently. On broad-spectrum antibiotics for possible pneumonia and coverage for UTI. Await cultures <Cristina Mahesh TWIN Chowdary - Last Filed: 03/20/21 15:37> (4) Elevated LFTs: Code(s): R79.89 - Other specified abnormal findings of blood chemistry <Cristina JazMyles Chowdary PA-C - Last Filed: 03/20/21 15:37> Status: Acute <Cristina Aragon TWIN Chowdary - Last Filed: 03/20/21 15:37> Assessment and Plan: Worse than labs in the past. Could be from dehydration vs malnutrition RUQ US showed Normal limited abdominal ultrasound. Hepatitis panel normal Will recheck CMP. <Cristina Chowdary PA-C - Last Filed: 03/20/21 15:37> (5) Acute hyperkalemia: Code(s): E87.5 - Hyperkalemia <Cristina SebastianMyles Chowdary PA-C - Last Filed: 03/20/21 15:37> Status: Acute <Cristinajasmin Chowdary PA-C - Last Filed: 03/20/21 15:37> Assessment and Plan: K was 5.7 on arrival, could be from dehydration since the patient tells me that she has not been eating or drinking much the last week. Repeat this morning with diuresis is 5.7 Will repeat CMP. Continue to monitor <Cristina Chowdary PA-C - Last Filed: 03/20/21 15:37> (6) Atrial fibrillation: Qualifiers: Atrial fibrillation type: unspecified Qualified Code(s): I48.91 - Unspecified atrial fibrillation <Cristina Chowdary PA-C - Last Filed: 03/20/21 15:37> Code(s): I48.91 - Unspecified atrial fibrillation <Cristina Chowdary PA-C - Last Filed: 03/20/21 15:37> Status: Chronic <Cristina Chowdary PA-C - Last Filed: 03/20/21 15:37> Assessment and Plan: Rate controlled at this time. Continue amiodarone and metoprolol Appreciate cardiology input <Cristina Chowdary PA-C - Last Filed: 03/20/21 15:37> (7) Insulin dependent type 2 diabetes mellitus: Code(s): E11.9 - Type 2 diabetes mellitus without complications; Z79.4 - manager intermediate (c
[2021-03-20 11:18] LABS: Iron 41 ug/dL (37-170)
[2021-03-20 11:28] LABS: Percent Iron Saturation 14 % (20-50)
[2021-03-20 11:50] LABS: Hepatitis B Surface Antigen Negative (Negative)
[2021-03-20 11:55] LABS: HAV RESULT Negative (Negative); Hepatitis B Core IgM Result Negative (Negative)
[2021-03-20 12:07] LABS: Hepatitis C Virus Antibody Negative (Negative)
[2021-03-20] MEDS: PANTOPRAZOLE 40 MG TABLET PO ×2 (12:09→20:18)
[2021-03-20 12:52] LABS: Folic Acid 16.3 ng/mL (2.76->20); Vitamin B12 > 1000.0 pg/mL (239-931)
[2021-03-20] MEDS: ACETAMINOPHEN 325 MG TABLET 650 MG PO (15:43)
[2021-03-20 15:55] LABS: Glucose Point of Care 188 mg/dl (65-105)
[2021-03-20 16:13] LABS: Alanine Aminotransferase 121 U/L (4-35); Albumin Level 3.3 g/dL (3.5-5.1); Alkaline Phosphatase 391 U/L (38-126); Anion Gap 9 mmol/L (8-16); Aspartate Amino Transferase 58 U/L (14-36); Bilirubin,Total 0.9 mg/dL (0.2-1.3); Blood Urea Nitrogen 26 mg/dL (7-17); Calcium 8.2 mg/dL (8.4-10.2); Carbon Dioxide 25 mmol/L (22-30); Chloride 88 mmol/L (98-107); Estimated CRCL calculation 41 ml/min; Estimated Glomerular Filt Rate > 60; Glucose 198 mg/dL (65-110); Potassium 5.1 mmol/L (3.4-5.0); Sodium 122 mmol/L (137-145)
--- NOTE | 2021-03-20 16:40 | PM.CNNEP ---
Assessment and Plan Assessment and plan (1) Hyponatremia: Code(s): E87.1 - Hypo-osmolality and hyponatremia Status: Acute Assessment and Plan: suspect hypervolemic hyponatremia from CHF/volume overload suspect diuresis will help improve this fluid restriction as tolerated as well check TSH, cortisol, SPEP, and UPEP check urine electrolytes but will be difficult to interpret given receiving diuretics follow trend of repeat sodiums (2) PAF (paroxysmal atrial fibrillation): Code(s): I48.0 - Paroxysmal atrial fibrillation Status: Acute (3) CHF (congestive heart failure): Qualifiers: Heart failure chronicity: acute Heart failure type: unspecified Qualified Code(s): I50.9 - Heart failure, unspecified Code(s): I50.9 - Heart failure, unspecified Status: Acute Assessment and Plan: no previous history noted Cardiology consulted and following follow-up on Echo (4) Atrial fibrillation: Qualifiers: Atrial fibrillation type: unspecified Qualified Code(s): I48.91 - Unspecified atrial fibrillation Code(s): I48.91 - Unspecified atrial fibrillation Status: Chronic Assessment and Plan: continue rate controlled strategy on Eliquis (5) C1 cervical fracture: Onset Date: ~01/2021 Code(s): S12.000A - Unspecified displaced fracture of first cervical vertebra, initial encounter for closed fracture Status: Acute Assessment and Plan: continue C-collar (6) Diabetes: Code(s): E11.9 - Type 2 diabetes mellitus without complications Status: Chronic Assessment and Plan: follow accuchecks glycemic control Will continue to follow. History of Present Illness Reason for Consult Consult date: 03/20/21 Reason for consult: hyponatremia Chief Complaint Chief complaint: CHF History of Present Illness Narrative: The patient is 80-year-old female with a past medical history as outlined below who presented to [facility] Emergency room with complaints of shortness of breath. I am not entirely clear how long the patient's symptoms were present but she does note that in association with shortness of breath, she has had a productive cough. She gave no complaints of fevers, chills, nausea, vomiting, abdominal pain, diarrhea. She had a recent C1 fracture and has to wear an [place] collar which somewhat limits her oral intake more so because she has difficulty chewing food. None the less, as the shortness of breath was progressively getting worse, her nursing facility transferred her to the emergency room for further evaluation Workup and evaluation emergency room demonstrated a chest x-ray with a left pleural effusion and infiltrate, I urinalysis with numerous white blood cells concerning for possible infection, and routine blood test that showed several electrolyte abnormalities including hyponatremia and mild hyperkalemia in association with a severely elevated BNP. Given these laboratory findings as well as her constellation of symptoms that led to her presentation to the emergency room, the patient was admitted to the hospital for further evaluation and therapy. Since her admission, she is in been seen by Cardiology in consultation and has been instituted IV diuretic therapy for treatment of what appears to be new onset congestive heart failure. An echocardiogram has been ordered for further evaluation of her systolic heart function as well. She reports some improvement in her breathing with institution of IV diuretic therapy. Renal consultation was requested due to her hyponatremia. From review of her records, this appears to be a fairly acute issue/problem. Labs done approximately 8 months ago showed her sodium level well within normal limits. However, given her new onset congestive heart failure, the sodium level could be dilutional and be related to her volume overload status which
[2021-03-20] MEDS: ATORVASTATIN 10 MG TABLET PO (17:05)
[2021-03-20 19:20] LABS: Creatinine Urine 26.2 mg/dL; Total Protein Urine Random 16 mg/dL; Ur Ttl Prot Creatinine Ratio 0.61 mg/mg (0-0.20)
[2021-03-20 19:32] LABS: Creatinine Urine 25.8 mg/dL
[2021-03-20 19:33] LABS: Sodium Urine Random 87 meq/L
[2021-03-20] MEDS: traZODone HCL 25 MG TABLET PO (20:18)
[2021-03-20] MEDS: MINERAL OIL/WHITE PETROLATUM OINTMENT 1 APPLIC EACH EYE (20:19)
[2021-03-20] MEDS: INSULIN GLARGINE (*BKC) 100 UNITS/ML 16 UNITS SUB-Q (20:27)
[2021-03-20 21:32] LABS: Glucose Point of Care 236 mg/dl (65-105)
[2021-03-21] VITALS (11 sets, daily range): BP systolic 104–132; BP diastolic 53–60; PULSE 54–72; RESP 16; TEMP 35.8–36.6; O2SAT 95–100
[2021-03-21] MEDS: LEVOTHYROXINE SODIUM 125 MCG TABLET PO (06:00)
[2021-03-21 06:30] LABS: Alanine Aminotransferase 102 U/L (4-35); Albumin Level 2.9 g/dL (3.5-5.1); Alkaline Phosphatase 346 U/L (38-126); Anion Gap 5 mmol/L (8-16); Aspartate Amino Transferase 49 U/L (14-36); Bilirubin,Total 0.7 mg/dL (0.2-1.3); Blood Urea Nitrogen 26 mg/dL (7-17); Calcium 8.1 mg/dL (8.4-10.2); Carbon Dioxide 32 mmol/L (22-30); Chloride 88 mmol/L (98-107); Estimated CRCL calculation 41 ml/min; Estimated Glomerular Filt Rate > 60; Glucose 217 mg/dL (65-110); Magnesium 1.8 mg/dL (1.6-2.3); Phosphorus 3.5 mg/dL (2.5-4.5); Potassium 4.8 mmol/L (3.4-5.0); Sodium 125 mmol/L (137-145)
[2021-03-21 06:31] LABS: Hematocrit 32.9 % (37.0-47.0); Hemoglobin 11.2 g/dL (12.0-15.0); Mean Corpuscular Hemoglobin 29.2 pg (26-34); Mean Corpuscular Volume 85.9 fl (80-100); Platelet Count Result 377 k/mm3 (150-375); Red Blood Count 3.83 M/mm3 (4.2-5.4); Red Cell Distribution Width 18.1 % (11.5-14.5)
--- NOTE | 2021-03-21 07:36 | PCNSR ---
On 03/21/21, the student,Myra Velasco, provided care and completed [facility] documentation on this patient. I have reviewed the student's documentation and agree with the findings.
[2021-03-21 07:55] LABS: Glucose Point of Care 183 mg/dl (65-105)
--- NOTE | 2021-03-21 08:25 | PM.PNCARD ---
Progress Note: A&P Assessment and Plan (1) Acute diastolic CHF (congestive heart failure): Code(s): I50.31 - Acute diastolic (congestive) heart failure Status: Acute Assessment and Plan: New onset of CHF Echo showing Severe left ventricular hypokinesis with an estimated ejection fraction 15-20%. 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 Grade 2 diastolic dysfunction is present. Continue IV furosemide 40 mg b.i.d. for today - probably shift to oral furosemide tomorrow. Initiate medical therapy with Entresto and spironolactone 25 mg Monitor blood pressure Daily BMP Discussed [facility] as an outpatient to evaluate for ischemic etiology of her cardiomyopathy. (2) LBBB (left bundle branch block): Code(s): I44.7 - Left bundle-branch block, unspecified Status: Acute Assessment and Plan: LBBB noted (3) PAF (paroxysmal atrial fibrillation): Code(s): I48.0 - Paroxysmal atrial fibrillation Status: Acute Assessment and Plan: History of paroxysmal atrial fibrillation,remaining in NSR on amiodarone, anticoagulated with apixaban. (4) Falls: Code(s): W19.XXXA - Unspecified fall, initial encounter Status: Acute Assessment and Plan: Frequent falls due to loss of balance, with a pelvic fracture and C1 fracture. Currently nonambulatory so will continue Eliquis. Will reassess anticoagulation as recovery and mobility progress. (5) Acute hyperkalemia: Code(s): E87.5 - Hyperkalemia Status: Acute Assessment and Plan: Resolved. 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 No evidence of pulmonary toxicity. TSH was normal. Elevated LFTs noted; may be 2nd CHF but if they do not improve may need to consider amiodarone as a cause. Subjective Date/time seen: 03/21/21 08:25 Cardiology follow up for CHF Date of service 11/12/21: Patient states she is feeling better today. She tells me that she ate her breakfast this morning for the 1st time in about 2 weeks. Denying any shortness of breath, palpitations, chest pain. Review of Systems Constitutional: Constitutional: Reports fatigue, Denies headache(s), Reports lethargy and Reports weakness ENT: Denies Normal hearing present, Denies headache(s) and Denies epistaxis Cardiovascular: Cardiovascular: Denies chest pain, Reports pedal edema, Denies leg edema, Reports palpitations (brief), Reports dyspnea and Reports dyspnea on exertion Respiratory: Respiratory: Reports dyspnea and Reports dyspnea on exertion Gastrointestinal: Gastrointestinal: Denies abdominal pain and Reports diarrhea Genitourinary: Genitourinary: Reports dysuria Musculoskeletal: Musculoskeletal: Reports back pain and Reports arthralgias Integumentary/Breasts: Skin/Breast: Denies rash Neurologic: Denies Normal hearing present, Denies headache(s) and Reports weakness Psychiatric: Psychiatric: Reports anxiety Endocrine: Endocrine: Reports fatigue and Reports palpitations (brief) Exam Const: General: comfortable and no acute distress HENMT: Mouth: Yes moist mucous membranes Eyes: General: appearance normal, both eyes and all related structures EOM: EOMs intact bilaterally Neck: Other: Wearing a C-collar Resp: Effort & Inspection: normal respiratory effort Auscultation: no rales and diminished lung sounds Cardio: Rate: regular rate Rhythm: regular rhythm Heart sounds: no murmurs Peripheral pulses: Peripheral pulses 2+ throughout GI: Inspection: non-distended Auscultation: normal bowel sounds Urinary Catheter: Urinary C
[2021-03-21] MEDS: DULoxetine HCL 30 MG CAPSULE.DR PO (09:20)
[2021-03-21] MEDS: FUROSEMIDE INJ 40 MG/4 ML VIAL IV PUSH ×2 (09:20→17:12)
[2021-03-21] MEDS: APIXABAN 5 MG TABLET PO ×2 (09:20→17:12)
[2021-03-21] MEDS: guaiFENesin 12 HR 600 MG TABCR PO ×2 (09:21→20:33)
[2021-03-21] MEDS: METOPROLOL TARTRATE 25 MG TABLET PO ×2 (09:21→20:32)
[2021-03-21] MEDS: AMIODARONE HCL 100 MG TABLET PO (09:21)
[2021-03-21] MEDS: PANTOPRAZOLE 40 MG TABLET PO ×2 (09:21→20:33)
[2021-03-21] MEDS: OPTI-GEN TAB 1 TABLET PO ×2 (09:21→17:12)
[2021-03-21] MEDS: amLODIPine BESYLATE 5 MG TABLET 10 MG PO (09:21)
[2021-03-21] MEDS: CHOLECALCIFEROL 1,000 UNITS TABLET 1000 UNITS PO (09:21)
--- NOTE | 2021-03-21 11:31 | PCDIET ---
Received a consult for pt. having a hard time eating at [facility]. Pt. requested a supplement and diet recommendations as she is following a gluten free diet. Added Glucerna BID providing an additional 220 calories and 10 grams of protein. Went and spoke with pt. providing her with information on a gluten free diet, specifically things she can and cannot have. She had no additional question for me at this time.
[2021-03-21 12:10] LABS: Glucose Point of Care 249 mg/dl (65-105)
--- NOTE | 2021-03-21 13:53 | PM.IMPN ---
Progress Note: A&P Assessment and Plan (1) CHF (congestive heart failure): Qualifiers: Heart failure chronicity: acute Heart failure type: unspecified Qualified Code(s): I50.9 - Heart failure, unspecified Code(s): I50.9 - Heart failure, unspecified Status: Acute Assessment and Plan: Awaiting Echocardiogram to determine systolic vs diastolic CHF. CXR showing cardiomegaly, pulmonary congestion, small left pleural effusion, left basilar edema vs pneumonia. BNP >35,000 Started on IV Lasix 40 mg BID - she is diuretic naive and will monitor renal function and electrolytes closely Pending Echocardiogram results Ball catheter in place for strict I&Os Daily weight Strict intake and output Cardiology consulted and appreciate their input. Continue monitoring. 03/21/21 interval history 13:53 patient 80-year-old female a resident of [facility] with history of atrial fibrillation anticoagulated presented emergency department with a complaint shortness of breath suspect congestive heart failure to further evaluate patient had a cardiac echo showed patient has severe systolic dysfunction with ejection fraction of 15-20% patient seen by quality assurance coach and patient is being diuresed IV Lasix 40 mg b.i.d. will continue to monitor I's and Os, also patient has hyponatremia most likely hemodilution if patient may be 3rd spacing the fluid, patient is seen by shaping machine operator and further recommendation to follow, will have a PT OT evaluate the patient and further recommendation to follow. (2) Lung infiltrate: Code(s): R91.8 - Other nonspecific abnormal finding of lung field Status: Acute Assessment and Plan: Patient is reporting orthopnea. I do not feel she has pneumonia, but she does report some post nasal drip and trouble coughing up sputum. Will obtain sputum culture Continue on broad-spectrum antibiotics at this time until sputum culture and urine culture returns and the will deescalate. Await blood cultures (3) Urinary tract infection: Code(s): N39.0 - Urinary tract infection, site not specified Status: Acute Assessment and Plan: Hx of E. coli UTIs. Does report dark urine recently. On broad-spectrum antibiotics for possible pneumonia and coverage for UTI. Await cultures (4) Elevated LFTs: Code(s): R79.89 - Other specified abnormal findings of blood chemistry Status: Acute Assessment and Plan: Worse than labs in the past. Could be from dehydration vs malnutrition RUQ US showed Normal limited abdominal ultrasound. Hepatitis panel normal Will recheck CMP. (5) Acute hyperkalemia: Code(s): E87.5 - Hyperkalemia Status: Acute Assessment and Plan: K was 5.7 on arrival, could be from dehydration since the patient tells me that she has not been eating or drinking much the last week. Repeat this morning with diuresis is 5.7 Will repeat CMP. Continue to monitor (6) Atrial fibrillation: Qualifiers: Atrial fibrillation type: unspecified Qualified Code(s): I48.91 - Unspecified atrial fibrillation Code(s): I48.91 - Unspecified atrial fibrillation Status: Chronic Assessment and Plan: Rate controlled at this time. Continue amiodarone and metoprolol Appreciate cardiology input (7) Insulin dependent type 2 diabetes mellitus: Code(s): E11.9 - Type 2 diabetes mellitus without complications; Z79.4 - detention (current) use of insulin Status: Chronic Assessment and Plan: Will decrease home insulin since on DM Diet here and glucose has not been above 200. Holding metformin Make adjustments based on glucose during hospitalization. Accu-Cheks AC and HS. Continue insulin. Hypoglycemic protocol. SSI. 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
--- NOTE | 2021-03-21 14:04 | PM.PNNEP ---
Progress Note: A&P Assessment and Plan (1) Hyponatremia: Code(s): E87.1 - Hypo-osmolality and hyponatremia Status: Acute Assessment and Plan: improvement noted suspect hypervolemic hyponatremia from CHF/volume overload suspect diuresis will help improve this fluid restriction as tolerated as well TSH and cortisol levels okay; SPEP, and UPEP pending follow trend of repeat sodiums (2) CHF (congestive heart failure): Qualifiers: Heart failure chronicity: acute Heart failure type: unspecified Qualified Code(s): I50.9 - Heart failure, unspecified Code(s): I50.9 - Heart failure, unspecified Status: Acute Assessment and Plan: no previous history noted Echo with severe systolic dysfunction Cardiology recommendations noted (3) Atrial fibrillation: Qualifiers: Atrial fibrillation type: unspecified Qualified Code(s): I48.91 - Unspecified atrial fibrillation Code(s): I48.91 - Unspecified atrial fibrillation Status: Chronic Assessment and Plan: continue rate controlled strategy on Eliquis (4) C1 cervical fracture: Onset Date: ~01/2021 Code(s): S12.000A - Unspecified displaced fracture of first cervical vertebra, initial encounter for closed fracture Status: Acute Assessment and Plan: continue C-collar (5) Diabetes: Code(s): E11.9 - Type 2 diabetes mellitus without complications Status: Chronic Assessment and Plan: follow accuchecks glycemic control Will continue to follow. Subjective Date/time seen: 03/21/21 14:04 The patient states she is feeling better today; reasonable diuresis in the last 24 hours and moderate improvement in sodium level as well; no other acute issues or problems to report at this time. Exam Narrative: General: WD/WN male/female in NAD Heart: normal S1 and S2; no rub Lungs: decreased at bases Abdomen: soft, nontender, nondistended, positive bowel sounds Extremities: no cyanosis or clubbing; trace edema Skin: warm and dry Objective Data Vital Signs Vital Signs: Vital Signs Temp Pulse Resp BP Pulse Ox 03/21/21 12:00 59 L 03/21/21 09:21 64 03/21/21 08:00 64 03/21/21 06:00 35.8 C L 72 16 132/53 L 95 03/21/21 04:00 54 L 03/21/21 00:00 61 03/20/21 20:31 36.4 C 67 18 123/54 L 97 03/20/21 20:19 68 03/20/21 20:00 66 03/20/21 16:00 68 Intake/Output Intake/Output: Intake & Output 03/18/21 03/19/21 03/20/21 03/21/21 23:59 23:59 23:59 23:59 Intake Total 1750 530 Output Total 1050 2325 Balance 700 -1795 Meds/Results Medications: Active Medications Generic Name Dose Route Start Last Admin Trade Name Freq PRN Reason Stop Dose Admin Acetaminophen 650 mg 03/19/21 21:41 03/20/21 15:43 Acetaminophen 325 Mg Tablet PO 650 mg Q4H PRN Administration Mild Pain (1-3) or Fever Amiodarone HCl 100 mg 03/20/21 08:00 03/21/21 09:21 Amiodarone Hcl 100 Mg Tablet PO 100 mg DAILY@0800 MARITO Administration Amlodipine Besylate 10 mg 03/20/21 09:00 03/21/21 09:21 Amlodipine Besylate 5 Mg Tablet PO 10 mg DAILY MARITO Administration Apixaban 5 mg 03/21/21 09:00 03/21/21 09:20 Apixaban 5 Mg Tablet PO 5 mg BID MARITO Administration Artificial Tears 1 drop 03/20/21 02:23 Artificial Tears Ophth Soln 15 Ml Bottle EACH EYE 04/19/21 02:22 Q4-6H PRN Dry Eye(S) Atorvastatin Calcium 10 mg 03/20/21 18:00 03/20/21 17:05 Atorvastatin 10 Mg Tablet PO 10 mg QPM MARITO Administration Diphenoxylate HCl/Atropine 1 tablet 03/20/21 02:23 Diphenoxylate/Atropine (*Crx) 2.5 Mg Tablet PO PRN PRN Diarrhea Duloxetine HCl 30 mg 03/20/21 09:00 03/21/21 09:20 Duloxetine Hcl 30 Mg Capsule.Dr PO 30 mg DAILY MARITO Administration Furosemide 40 mg 03/20/21 09:00 03/21/21 09:20 Furosemide Inj 40 Mg/4 Ml Vial IV PUSH
--- NOTE | 2021-03-21 14:12 | P.CDI_ITS ---
CDI Query Clarification Request -Acute CHF and patient had a cardiac echo showed patient has severe systolic dysfunction with ejection fraction of 15-20% has been documented -Acute diastolic CHF has been documented by cardiology -Echo summary: EF 15-20% and grade 2 diastolic dysfunction Please further specify type of acute CHF: * Systolic * Diastolic * Both systolic and diastolic * Unable to determine <Lina Sanchez RN - Last Filed: 03/21/21 14:17> Clarified Diagnosis (1) Combined systolic and diastolic heart failure, acute: Code(s): I50.41 - Acute combined systolic (congestive) and diastolic (congestive) heart failure <Lina Sanchez RN - Last Filed: 03/21/21 14:17> Status: Acute <Lina Sanchez RN - Last Filed: 03/21/21 14:17> Assessment and Plan: patient with a ejection fraction of 15-20% and grade 2 diastolic dysfunction most likely patient has 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
[2021-03-21 16:31] LABS: Glucose Point of Care 179 mg/dl (65-105)
[2021-03-21] MEDS: ATORVASTATIN 10 MG TABLET PO (17:12)
[2021-03-21 20:24] LABS: Glucose Point of Care 183 mg/dl (65-105)
[2021-03-21] MEDS: INSULIN GLARGINE (*BKC) 100 UNITS/ML 16 UNITS SUB-Q (20:32)
[2021-03-21] MEDS: MINERAL OIL/WHITE PETROLATUM OINTMENT 1 APPLIC EACH EYE (20:32)
[2021-03-21] MEDS: traZODone HCL 25 MG TABLET PO (20:33)
[2021-03-21] MEDS: SACUBITRIL/VALSARTAN 24-26 MG TABLET 1 TAB PO (20:33)
[2021-03-22] VITALS (14 sets, daily range): BP systolic 108–113; BP diastolic 37–48; PULSE 49–61; RESP 16–17; TEMP 35.9–36.4; O2SAT 95–100
[2021-03-22] MEDS: ACETAMINOPHEN 325 MG TABLET 650 MG PO (00:30)
[2021-03-22 04:47] LABS: Hematocrit 37.4 % (37.0-47.0); Hemoglobin 12.6 g/dL (12.0-15.0); Mean Corpuscular HGB Conc 33.7 g/dl (32-36); Mean Corpuscular Hemoglobin 28.6 pg (26-34); Mean Corpuscular Volume 84.8 fl (80-100); Platelet Count Result 402 k/mm3 (150-375); Red Blood Count 4.41 M/mm3 (4.2-5.4); Red Cell Distribution Width 17.8 % (11.5-14.5); White Blood Count 10.3 K/mm3 (4.5-10.0)
[2021-03-22 05:00] LABS: Albumin Level 3.1 g/dL (3.5-5.1); Anion Gap 5 mmol/L (8-16); Blood Urea Nitrogen 20 mg/dL (7-17); Calcium 7.9 mg/dL (8.4-10.2); Carbon Dioxide 36 mmol/L (22-30); Chloride 87 mmol/L (98-107); Estimated CRCL calculation 46 ml/min; Estimated Glomerular Filt Rate > 60; Glucose 75 mg/dL (65-110); Phosphorus 2.7 mg/dL (2.5-4.5); Potassium 3.3 mmol/L (3.4-5.0); Sodium 128 mmol/L (137-145)
[2021-03-22] MEDS: LEVOTHYROXINE SODIUM 125 MCG TABLET PO (06:34)
[2021-03-22 08:54] LABS: Glucose Point of Care 69 mg/dl (65-105)
[2021-03-22] MEDS: DULoxetine HCL 30 MG CAPSULE.DR PO (09:56)
[2021-03-22] MEDS: PANTOPRAZOLE 40 MG TABLET PO ×2 (09:56→20:39)
[2021-03-22] MEDS: amLODIPine BESYLATE 5 MG TABLET 10 MG PO (09:56)
[2021-03-22] MEDS: AMIODARONE HCL 100 MG TABLET PO (09:56)
[2021-03-22] MEDS: POTASSIUM CHLORIDE 20 MEQ PACKET (FOR LIQUID) 40 MEQ PO (09:56)
[2021-03-22] MEDS: guaiFENesin 12 HR 600 MG TABCR PO ×2 (09:57→20:38)
[2021-03-22] MEDS: METOPROLOL TARTRATE 25 MG TABLET PO ×2 (09:57→20:40)
[2021-03-22] MEDS: OPTI-GEN TAB 1 TABLET PO ×2 (09:57→18:06)
[2021-03-22] MEDS: APIXABAN 5 MG TABLET PO ×2 (09:57→18:06)
[2021-03-22] MEDS: SACUBITRIL/VALSARTAN 24-26 MG TABLET 1 TAB PO ×2 (09:57→20:40)
[2021-03-22] MEDS: CHOLECALCIFEROL 1,000 UNITS TABLET 1000 UNITS PO (09:57)
[2021-03-22] MEDS: FUROSEMIDE INJ 40 MG/4 ML VIAL IV PUSH (09:58)
[2021-03-22] MEDS: SPIRONOLACTONE 25 MG TABLET PO (09:58)
[2021-03-22 12:26] LABS: Glucose Point of Care 124 mg/dl (65-105)
--- NOTE | 2021-03-22 12:48 | PM.IMPN ---
Progress Note: A&P Assessment and Plan (1) CHF (congestive heart failure): Qualifiers: Heart failure chronicity: acute Heart failure type: unspecified Qualified Code(s): I50.9 - Heart failure, unspecified Code(s): I50.9 - Heart failure, unspecified Status: Acute Assessment and Plan: Awaiting Echocardiogram to determine systolic vs diastolic CHF. CXR showing cardiomegaly, pulmonary congestion, small left pleural effusion, left basilar edema vs pneumonia. BNP >35,000 Started on IV Lasix 40 mg BID - she is diuretic naive and will monitor renal function and electrolytes closely Pending Echocardiogram results Ball catheter in place for strict I&Os Daily weight Strict intake and output Cardiology consulted and appreciate their input. Continue monitoring. 03/21/21 interval history 13:53 patient 80-year-old female a resident of [facility] with history of atrial fibrillation anticoagulated presented emergency department with a complaint shortness of breath suspect congestive heart failure to further evaluate patient had a cardiac echo showed patient has severe systolic dysfunction with ejection fraction of 15-20% patient seen by music engineer and patient is being diuresed IV Lasix 40 mg b.i.d. will continue to monitor I's and Os, also patient has hyponatremia most likely hemodilution if patient may be 3rd spacing the fluid, patient is seen by independent crop consultant and further recommendation to follow, will have a PT OT evaluate the patient and further recommendation to follow. 03/22/21 interval history: patient with severe systolic dysfunction with ejection fraction of 15-20% patient is being diuresed with IV Lasix 40 mg b.i.d., is feeling much better compared to when she arrived not as short of breath, patient seen by Cardiology and further recommendation to follow. upon arrival to concern for UTI urine culture is growing Enterococcus patient is being treated Zosyn, and there was also concern for pneumonia and being treated with Zosyn and vancomycin will repeat chest x-ray and further recommendation to follow, will encourage patient to participate PT OT and further recommendation to follow. (2) Lung infiltrate: Code(s): R91.8 - Other nonspecific abnormal finding of lung field Status: Acute Assessment and Plan: Patient is reporting orthopnea. I do not feel she has pneumonia, but she does report some post nasal drip and trouble coughing up sputum. Will obtain sputum culture Continue on broad-spectrum antibiotics at this time until sputum culture and urine culture returns and the will deescalate. Await blood cultures (3) Urinary tract infection: Code(s): N39.0 - Urinary tract infection, site not specified Status: Acute Assessment and Plan: Hx of E. coli UTIs. Does report dark urine recently. On broad-spectrum antibiotics for possible pneumonia and coverage for UTI. Await cultures (4) Elevated LFTs: Code(s): R79.89 - Other specified abnormal findings of blood chemistry Status: Acute Assessment and Plan: Worse than labs in the past. Could be from dehydration vs malnutrition RUQ US showed Normal limited abdominal ultrasound. Hepatitis panel normal Will recheck CMP. (5) Acute hyperkalemia: Code(s): E87.5 - Hyperkalemia Status: Acute Assessment and Plan: K was 5.7 on arrival, could be from dehydration since the patient tells me that she has not been eating or drinking much the last week. Repeat this morning with diuresis is 5.7 Will repeat CMP. Continue to monitor (6) Atrial fibrillation: Qualifiers: Atrial fibrillation type: unspecified Qualified Code(s): I48.91 - Unspecified atrial fibrillation Code(s): I48.91 - Unspecified atrial fibrillation Status: Chronic Assessment and Plan: Rate controlled at this time. Continue amiodarone and metoprolol Appreciate cardiology input (7) Insu
--- NOTE | 2021-03-22 13:33 | PCPTNOTE ---
attempted PT treatment 1330- pt in bed, stated too tired, could not walk right now, had busy day and been up since 5 AM Did state that she has been doing the leg exercises in bed. pt refused PT treatment this afternoon.
--- NOTE | 2021-03-22 13:52 | PM.PNNEP ---
Progress Note: A&P Assessment and Plan (1) Hyponatremia: Code(s): E87.1 - Hypo-osmolality and hyponatremia Status: Acute Assessment and Plan: slow improvement noted suspect hypervolemic hyponatremia from CHF/volume overload suspect diuresis will help improve this fluid restriction ongoing TSH and cortisol levels okay; SPEP and UPEP pending follow trend of repeat sodiums (2) CHF (congestive heart failure): Qualifiers: Heart failure chronicity: acute Heart failure type: unspecified Qualified Code(s): I50.9 - Heart failure, unspecified Code(s): I50.9 - Heart failure, unspecified Status: Acute Assessment and Plan: no previous history noted Echo with severe systolic dysfunction Cardiology following with recommendations noted (3) Atrial fibrillation: Qualifiers: Atrial fibrillation type: unspecified Qualified Code(s): I48.91 - Unspecified atrial fibrillation Code(s): I48.91 - Unspecified atrial fibrillation Status: Chronic Assessment and Plan: continue rate controlled strategy on Eliquis (4) C1 cervical fracture: Onset Date: ~01/2021 Code(s): S12.000A - Unspecified displaced fracture of first cervical vertebra, initial encounter for closed fracture Status: Acute Assessment and Plan: continue C-collar (5) Diabetes: Code(s): E11.9 - Type 2 diabetes mellitus without complications Status: Chronic Assessment and Plan: follow accuchecks glycemic control Will continue to follow. Subjective Date/time seen: 03/22/21 13:52 Shortness of breath appears to be resolving if not improving with current therapy; no issues or problems to report; no events overnight or earlier this AM; overall, seems to be feeling reasonably well. Exam Narrative: General: WD/WN male/female in NAD Heart: normal S1 and S2; no rub Lungs: decreased at bases Abdomen: soft, nontender, nondistended, positive bowel sounds Extremities: no cyanosis or clubbing; trace edema Skin: warm and intact Objective Data Vital Signs Vital Signs: Vital Signs Temp Pulse Resp BP Pulse Ox 03/22/21 10:44 95 03/22/21 09:57 60 03/22/21 09:56 60 03/22/21 08:00 49 L 03/22/21 05:19 36.4 C L 55 L 17 108/48 L 96 03/22/21 04:00 50 L 03/22/21 00:00 60 03/21/21 20:32 60 03/21/21 20:05 36.6 C 60 16 104/60 100 03/21/21 20:00 58 L 03/21/21 16:00 59 L 03/21/21 14:53 36.4 C L 64 16 121/56 L 98 Intake/Output Intake/Output: Intake & Output 03/19/21 03/20/21 03/21/21 03/22/21 23:59 23:59 23:59 23:59 Intake Total 1750 1620 700 Output Total 1050 2775 2550 Balance 097 -8663 -7896 Meds/Results Medications: Active Medications Generic Name Dose Route Start Last Admin Trade Name Freq PRN Reason Stop Dose Admin Acetaminophen 650 mg 03/19/21 21:41 03/22/21 00:30 Acetaminophen 325 Mg Tablet PO 650 mg Q4H PRN Administration Mild Pain (1-3) or Fever Amiodarone HCl 100 mg 03/20/21 08:00 03/22/21 09:56 Amiodarone Hcl 100 Mg Tablet PO 100 mg DAILY@0800 MARITO Administration Amlodipine Besylate 10 mg 03/20/21 09:00 03/22/21 09:56 Amlodipine Besylate 5 Mg Tablet PO 10 mg DAILY MARITO Administration Apixaban 5 mg 03/21/21 09:00 03/22/21 09:57 Apixaban 5 Mg Tablet PO 5 mg BID MARITO Administration Artificial Tears 1 drop 03/20/21 02:23 Artificial Tears Ophth Soln 15 Ml Bottle EACH EYE 04/19/21 02:22 Q4-6H PRN Dry Eye(S) Atorvastatin Calcium 10 mg 03/20/21 18:00 03/21/21 17:12 Atorvastatin 10 Mg Tablet PO 10 mg QPM MARITO Administration Diphenoxylate HCl/Atropine 1 tablet 03/20/21 02:23 Diphenoxylate/Atropine (*Crx) 2.5 Mg Tablet PO PRN PRN Diarrhea Duloxetine HCl 30 mg 03/20/21 09:00 03/22/21 09:56 Duloxetine Hcl 30 Mg Capsule.Dr PO 30 mg DAILY MARITO Admin
--- NOTE | 2021-03-22 14:30 | PM.PNCARD ---
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 She appears to be essentially euvolemic on exam today and her chest x-ray this morning looks essentially clear. I am going to stop giving her IV furosemide and switch to an oral regimen starting tomorrow. She is responding well to medical therapy and appears that is the plan at this point. She is anticipating being in the hospital through the weekend. Medardo Saab MD [facility] Subjective Date/time seen: Date of service 03/22/21 14:30 Interval history: Follow-up visit in this 80-year-old lady with: Paroxysmal atrial fibrillation being maintained in sinus rhythm with amiodarone. She presented with congestive heart failure and echocardiogram is highly suspicious of takotsubo cardiomyopathy. She has been treated as such and is improving. Today the patient reports no ongoing shortness of breath she has some generalized weakness no other specific complaints. She has been treated with intravenous furosemide which continues and has been started on Entresto. Exam Const: General: comfortable and no acute distress Orientation/consciousness: patient oriented x3 HENMT: General nose exam: no epistaxis Mouth: Yes moist mucous membranes Eyes: General: appearance normal, both eyes and all related structures EOM: EOMs intact bilaterally Neck: Other: Wearing a C-collar Resp: Effort & Inspection: normal respiratory effort Auscultation: no rales and diminished lung sounds Other: Breath sounds are clear in both lung loja at this time Cardio: Rate: regular rate Rhythm: regular rhythm Heart sounds: no murmurs Peripheral pulses: Peripheral pulses 2+ throughout GI: Inspection: non-distended Auscultation: normal bowel sounds Urinary Catheter: Urinary Catheter: patent and draining and urine clear Back/Spine/Pelvis: Cervical Spine: cervical ROM abnormal Skin: General skin exam: normal color Other: Scratches on LE Neuro: General: patient oriented x3 Cranial nerves: No Normal hearing present Cognition (Neuro): normal cognition Speech: normal speech Other: Vague and imprecise historian Extrem: General: edema and pedal edema (slight left ankle edema) Other: Pedal pulses absent except for right post tibial Psych: Mental Status: mental status grossly normal Affect: normal affect Objective Data Vital Signs Vital Signs: Vital Signs - 24 hr 03/21/21 14:53 03/21/21 16:00 03/21/21 20:00 Temperature 36.4 C L Pulse Rate 64 59 L 58 L Respiratory Rate 16 Blood Pressure 121/56 L Pulse Oximetry 98 03/21/21 20:05 03/21/21 20:32 03/22/21 00:00 Temperature 36.6 C Pulse Rate 60 60 60 Respiratory Rate 16 Blood Pressure 104/60 Pulse Oximetry 100 03/22/21 04:00 03/22/21 05:19 03/22/21 08:00 Temperature 36.4 C L Pulse Rate 50 L 55 L 49 L Respiratory Rate 17 Blood Pressure 108/48 L Pulse Oximetry 96 03/22/21 09:56 03/22/21 09:57 03/22/21 10:44 Temperature Pulse Rate 60 60 Respiratory Rate Blood Pressure Pulse Oximetry 95 Intake/Output Intake/Output: Intake & Output 03/19/21 03/20/21 03/21/21 03/22/21 23:59 23:59 23:59 23:59 Intake Total 1750 1620 700 Output Total 1050 2775 2550 Balance 556 -4885 -5495 Meds/Results Medications: Active Medications Generic Name Dose Route Start Last Admin Trade Name Frankq PRN Reason Stop Dose Admin Acetaminophen 650 mg 03/19/21 21:41 03/22/21 00:30 Acetaminophen 325 Mg Tablet PO 650 mg Q4H PRN Administration Mild Pain (1-3) or Fever Amiodarone HCl 100 mg 03/20/21 08:00 03/22/21 09:56 Amiodarone Hcl 100 Mg Tablet PO 100 mg DAILY@0800 MARITO Administration Amlodipine Besylate 10 mg 03/20/21 09:00 03/22/21 09:56 Amlodipine Besylate 5 Mg Tablet PO 10 mg DAILY MARITO Administration Apixaban 5 mg 03/21/21 09:00 03/22/21 09:57 Apixaban 5 Mg Tablet PO 5 mg BID [facility] Admi
--- NOTE | 2021-03-22 15:54 | PCPTNOTE ---
attempted to see pt for physical therapy in AM, pt declined due to wanting to rest after occupational therapy
[2021-03-22 16:40] LABS: Glucose Point of Care 165 mg/dl (65-105)
[2021-03-22] MEDS: ATORVASTATIN 10 MG TABLET PO (18:07)
[2021-03-22 20:20] LABS: Glucose Point of Care 229 mg/dl (65-105)
[2021-03-22] MEDS: INSULIN GLARGINE (*BKC) 100 UNITS/ML 16 UNITS SUB-Q (20:38)
[2021-03-22] MEDS: MINERAL OIL/WHITE PETROLATUM OINTMENT 1 APPLIC EACH EYE (20:39)
[2021-03-22] MEDS: traZODone HCL 25 MG TABLET PO (20:40)
[2021-03-22 22:41] LABS: Vancomycin Trough 5.4 ug/mL (10.0-20.0)
[2021-03-23] VITALS (11 sets, daily range): BP systolic 98–100; BP diastolic 38–48; PULSE 48–62; RESP 16–18; TEMP 36.1–36.6; O2SAT 97–100
[2021-03-23] MEDS: LEVOTHYROXINE SODIUM 125 MCG TABLET PO (05:48)
[2021-03-23 06:01] LABS: Hematocrit 37.4 % (37.0-47.0); Mean Corpuscular HGB Conc 32.1 g/dl (32-36); Mean Corpuscular Hemoglobin 28.3 pg (26-34); Mean Corpuscular Volume 88.2 fl (80-100); Mean Platelet Volume 9.1 fl (7.4-10.4); Platelet Count Result 379 k/mm3 (150-375); Red Blood Count 4.24 M/mm3 (4.2-5.4); Red Cell Distribution Width 18.6 % (11.5-14.5); White Blood Count 10.5 K/mm3 (4.5-10.0)
[2021-03-23 06:18] LABS: Albumin Level 2.8 g/dL (3.5-5.1); Anion Gap 5 mmol/L (8-16); Blood Urea Nitrogen 18 mg/dL (7-17); Calcium 7.8 mg/dL (8.4-10.2); Carbon Dioxide 34 mmol/L (22-30); Chloride 87 mmol/L (98-107); Estimated CRCL calculation 53 ml/min; Estimated Glomerular Filt Rate > 60; Glucose 115 mg/dL (65-110); Phosphorus 2.4 mg/dL (2.5-4.5); Potassium 3.7 mmol/L (3.4-5.0); Sodium 126 mmol/L (137-145)
[2021-03-23 08:03] LABS: Glucose Point of Care 91 mg/dl (65-105)
[2021-03-23] MEDS: guaiFENesin 12 HR 600 MG TABCR PO ×2 (09:21→20:57)
[2021-03-23] MEDS: AMIODARONE HCL 100 MG TABLET PO (09:21)
[2021-03-23] MEDS: amLODIPine BESYLATE 5 MG TABLET 10 MG PO (09:21)
[2021-03-23] MEDS: SACUBITRIL/VALSARTAN 24-26 MG TABLET 1 TAB PO ×2 (09:22→20:57)
[2021-03-23] MEDS: CHOLECALCIFEROL 1,000 UNITS TABLET 1000 UNITS PO (09:22)
[2021-03-23] MEDS: PANTOPRAZOLE 40 MG TABLET PO ×2 (09:22→20:57)
[2021-03-23] MEDS: METOPROLOL TARTRATE 25 MG TABLET PO ×2 (09:22→20:57)
[2021-03-23] MEDS: DULoxetine HCL 30 MG CAPSULE.DR PO (09:22)
[2021-03-23] MEDS: OPTI-GEN TAB 1 TABLET PO ×2 (09:22→17:56)
[2021-03-23] MEDS: SPIRONOLACTONE 25 MG TABLET PO (09:22)
[2021-03-23] MEDS: FUROSEMIDE 40 MG TABLET PO (09:22)
[2021-03-23] MEDS: APIXABAN 5 MG TABLET PO ×2 (09:22→17:56)
[2021-03-23 12:03] LABS: Glucose Point of Care 165 mg/dl (65-105)
[2021-03-23] MEDS: ALPRAZolam (*CRX) 0.5 MG TABLET PO (12:14)
--- NOTE | 2021-03-23 12:52 | PM.PNNEP ---
Progress Note: A&P Assessment and Plan (1) Hyponatremia: Code(s): E87.1 - Hypo-osmolality and hyponatremia Status: Acute Assessment and Plan: slow improvement noted suspect hypervolemic hyponatremia from CHF/volume overload given #2, she may always have some degree of this chronically from now on.... suspect diuresis will help improve this fluid restriction ongoing TSH and cortisol levels okay; SPEP and UPEP pending follow trend of repeat sodiums (2) CHF (congestive heart failure): Qualifiers: Heart failure chronicity: acute Heart failure type: unspecified Qualified Code(s): I50.9 - Heart failure, unspecified Code(s): I50.9 - Heart failure, unspecified Status: Acute Assessment and Plan: no previous history noted Echo with severe systolic dysfunction Cardiology following with recommendations noted (3) Atrial fibrillation: Qualifiers: Atrial fibrillation type: unspecified Qualified Code(s): I48.91 - Unspecified atrial fibrillation Code(s): I48.91 - Unspecified atrial fibrillation Status: Chronic Assessment and Plan: continue rate controlled strategy on Eliquis (4) C1 cervical fracture: Onset Date: ~01/2021 Code(s): S12.000A - Unspecified displaced fracture of first cervical vertebra, initial encounter for closed fracture Status: Acute Assessment and Plan: continue C-collar (5) Diabetes: Code(s): E11.9 - Type 2 diabetes mellitus without complications Status: Chronic Assessment and Plan: follow accuchecks glycemic control Will continue to follow. Subjective Date/time seen: 03/23/21 12:52 No shortness of breath noted at this time; breathing seems significantly better than on presentation/admission; no issues/events overnight or earlier this morning; no apparent distress voiced. Exam Narrative: General: WD/WN male/female in NAD Heart: normal S1 and S2; no rub Lungs: clear anteriorly Abdomen: soft, nontender, nondistended, positive bowel sounds Extremities: no cyanosis or clubbing; trace edema Skin: warm and intact Objective Data Vital Signs Vital Signs: Vital Signs Temp Pulse Resp BP Pulse Ox 03/23/21 12:00 57 L 03/23/21 09:22 62 03/23/21 09:21 62 03/23/21 08:00 54 L 03/23/21 04:38 36.3 C L 55 L 18 100/48 L 100 03/23/21 04:00 48 L 03/23/21 00:00 50 L 03/22/21 20:40 58 L 03/22/21 20:23 52 L 16 96 03/22/21 20:00 58 L 03/22/21 19:34 36.3 C L 61 16 110/46 L 98 03/22/21 16:00 52 L 03/22/21 15:13 35.9 C L 55 L 16 113/37 L 100 Intake/Output Intake/Output: Intake & Output 03/20/21 03/21/21 03/22/21 03/23/21 23:59 23:59 23:59 23:59 Intake Total 1750 1620 920 880 Output Total 1050 2775 3450 1100 Balance 732 -3546 -2530 -220 Meds/Results Medications: Active Medications Generic Name Dose Route Start Last Admin Trade Name Freq PRN Reason Stop Dose Admin Acetaminophen 650 mg 03/19/21 21:41 03/22/21 00:30 Acetaminophen 325 Mg Tablet PO 650 mg Q4H PRN Administration Mild Pain (1-3) or Fever Alprazolam 0.5 mg 03/23/21 12:04 03/23/21 12:14 Alprazolam (*Crx) 0.5 Mg Tablet PO 0.5 mg TID PRN Administration Anxiety Amiodarone HCl 100 mg 03/20/21 08:00 03/23/21 09:21 Amiodarone Hcl 100 Mg Tablet PO 100 mg DAILY@0800 MARITO Administration Amlodipine Besylate 10 mg 03/20/21 09:00 03/23/21 09:21 Amlodipine Besylate 5 Mg Tablet PO 10 mg DAILY MARITO Administration Apixaban 5 mg 03/21/21 09:00 03/23/21 09:22 Apixaban 5 Mg Tablet PO 5 mg BID MARITO Administration Artificial Tears 1 drop 03/20/21 02:23 Artificial Tears Ophth Soln 15 Ml Bottle EACH EYE 04/19/21 02:22 Q4-6H PRN Dry Eye(S) Atorvastatin Calcium 10 mg 03/20/21 18:00 03/22/21 18:07 Atorvastatin 10 Mg Tablet PO 10 mg QPM MARITO Admi
--- NOTE | 2021-03-23 13:02 | PM.PNCARD ---
Progress Note: A&P Additional Plan 80-year-old lady with: CHF echocardiogram suggests takotsubo stress cardiomyopathy. She is being treated medically and is doing well. Seems to be well compensated and is euvolemic. No adjustments in her cardiac medical regimen today. She is hopeful of being discharged tomorrow. She is not sure she is going to be able to handle discharged home or not. Medardo Saab MD [facility] Subjective Date/time seen: Date of service:03/23/21 13:02 Interval history: Follow-up visit in this 80-year-old lady with: Paroxysmal atrial fibrillation being maintained in sinus rhythm with amiodarone. She presented with congestive heart failure and echocardiogram is highly suspicious of takotsubo cardiomyopathy. She has been treated as such and is improving. Today the patient reports no ongoing shortness of breath she has some generalized weakness no other specific complaints. She has been treated with intravenous furosemide which continues and has been started on Entresto. Date of service 03/23/2021: . Patient is asymptomatic and does not have any cardiovascular symptoms or concerns. No shortness of breath or chest pain. Exam Const: General: comfortable and no acute distress Orientation/consciousness: patient oriented x3 HENMT: General nose exam: no epistaxis Mouth: Yes moist mucous membranes Eyes: General: appearance normal, both eyes and all related structures EOM: EOMs intact bilaterally Neck: Other: Wearing a C-collar Resp: Effort & Inspection: normal respiratory effort Auscultation: no rales and diminished lung sounds Other: Breath sounds are clear in both lung loja at this time Cardio: Rate: regular rate Rhythm: regular rhythm Heart sounds: no murmurs Peripheral pulses: Peripheral pulses 2+ throughout GI: Inspection: non-distended Auscultation: normal bowel sounds Urinary Catheter: Urinary Catheter: patent and draining and urine clear Back/Spine/Pelvis: Cervical Spine: cervical ROM abnormal Skin: General skin exam: normal color Other: Scratches on LE Neuro: General: patient oriented x3 Cranial nerves: No Normal hearing present Cognition (Neuro): normal cognition Speech: normal speech Other: Vague and imprecise historian Extrem: General: edema and pedal edema (slight left ankle edema) Other: Pedal pulses absent except for right post tibial Psych: Mental Status: mental status grossly normal Affect: normal affect Objective Data Vital Signs Vital Signs: Vital Signs - 24 hr 03/22/21 15:13 03/22/21 16:00 03/22/21 19:34 Temperature 35.9 C L 36.3 C L Pulse Rate 55 L 52 L 61 Respiratory Rate 16 16 Blood Pressure 113/37 L 110/46 L Pulse Oximetry 100 98 03/22/21 20:00 03/22/21 20:23 03/22/21 20:40 Temperature Pulse Rate 58 L 52 L 58 L Respiratory Rate 16 Blood Pressure Pulse Oximetry 96 03/23/21 00:00 03/23/21 04:00 03/23/21 04:38 Temperature 36.3 C L Pulse Rate 50 L 48 L 55 L Respiratory Rate 18 Blood Pressure 100/48 L Pulse Oximetry 100 03/23/21 09:21 03/23/21 09:22 Temperature Pulse Rate 62 62 Respiratory Rate Blood Pressure Pulse Oximetry Intake/Output Intake/Output: Intake & Output 03/20/21 03/21/21 03/22/21 03/23/21 23:59 23:59 23:59 23:59 Intake Total 1750 1620 920 830 Output Total 1050 2775 3450 1100 Balance 700 -1155 -2530 -270 Meds/Results Medications: Active Medications Generic Name Dose Route Start Last Admin Trade Name Freq PRN Reason Stop Dose Admin Acetaminophen 650 mg 03/19/21 21:41 03/22/21 00:30 Acetaminophen 325 Mg Tablet PO 650 mg Q4H PRN Administration Mild Pain (1-3) or Fever Alprazolam 0.5 mg 03/23/21 12:04 03/23/21 12:14 Alprazolam (*Crx) 0.5 Mg Tablet PO 0.5 mg TID PRN Administration Anxiety Amiodarone HCl 100 mg 03/20/21 08:00 03/23/21 09:21 Amiodarone Hcl 100 Mg Tablet PO 100 mg DAILY@0800 MARITO Administration Amlodipine
--- NOTE | 2021-03-23 13:09 | PM.IMPN ---
Progress Note: A&P Assessment and Plan (1) CHF (congestive heart failure): Qualifiers: Heart failure chronicity: acute Heart failure type: unspecified Qualified Code(s): I50.9 - Heart failure, unspecified Code(s): I50.9 - Heart failure, unspecified Status: Acute Assessment and Plan: Awaiting Echocardiogram to determine systolic vs diastolic CHF. CXR showing cardiomegaly, pulmonary congestion, small left pleural effusion, left basilar edema vs pneumonia. BNP >35,000 Started on IV Lasix 40 mg BID - she is diuretic naive and will monitor renal function and electrolytes closely Pending Echocardiogram results Ball catheter in place for strict I&Os Daily weight Strict intake and output Cardiology consulted and appreciate their input. Continue monitoring. 03/21/21 interval history 13:53 patient 80-year-old female a resident of [facility] with history of atrial fibrillation anticoagulated presented emergency department with a complaint shortness of breath suspect congestive heart failure to further evaluate patient had a cardiac echo showed patient has severe systolic dysfunction with ejection fraction of 15-20% patient seen by outside event sales specialist and patient is being diuresed IV Lasix 40 mg b.i.d. will continue to monitor I's and Os, also patient has hyponatremia most likely hemodilution if patient may be 3rd spacing the fluid, patient is seen by mathematician and further recommendation to follow, will have a PT OT evaluate the patient and further recommendation to follow. 03/22/21 interval history: patient with severe systolic dysfunction with ejection fraction of 15-20% patient is being diuresed with IV Lasix 40 mg b.i.d., is feeling much better compared to when she arrived not as short of breath, patient seen by Cardiology and further recommendation to follow. upon arrival to concern for UTI urine culture is growing Enterococcus patient is being treated Zosyn, and there was also concern for pneumonia and being treated with Zosyn and vancomycin will repeat chest x-ray and further recommendation to follow, will encourage patient to participate PT OT and further recommendation to follow. 03/23/21 interval history: patient with severe systolic dysfunction with ejection fraction of 15-20% patient is being diuresed with IV Lasix 40 mg b.i.d., is feeling much better compared to when she arrived not as short of breath, patient was seen by Cardiology and switched to oral lasix from today, upon arrival to concern for UTI urine culture is growing Enterococcus patient is being treated Zosyn, and there was also concern for pneumonia and being treated with Zosyn and vancomycin, chest x-ray on 03/22 showed stable infiltrated will CPM and further recommendation to follow, will encourage patient to participate PT OT and further recommendation to follow. possibly discharge tomorrow. (2) Lung infiltrate: Code(s): R91.8 - Other nonspecific abnormal finding of lung field Status: Acute Assessment and Plan: Patient is reporting orthopnea. I do not feel she has pneumonia, but she does report some post nasal drip and trouble coughing up sputum. Will obtain sputum culture Continue on broad-spectrum antibiotics at this time until sputum culture and urine culture returns and the will deescalate. Await blood cultures (3) Urinary tract infection: Code(s): N39.0 - Urinary tract infection, site not specified Status: Acute Assessment and Plan: Hx of E. coli UTIs. Does report dark urine recently. On broad-spectrum antibiotics for possible pneumonia and coverage for UTI. Await cultures (4) Elevated LFTs: Code(s): R79.89 - Other specified abnormal findings of blood chemistry Status: Acute Assessment and Plan: Worse than labs in the past. Could be from dehydration vs malnutrition RUQ US showed Normal limited abdominal ultrasound. Hepatitis panel normal Will recheck CMP. (
[2021-03-23 17:33] LABS: Glucose Point of Care 172 mg/dl (65-105)
[2021-03-23] MEDS: ATORVASTATIN 10 MG TABLET PO (17:56)
[2021-03-23] MEDS: INSULIN GLARGINE (*BKC) 100 UNITS/ML 16 UNITS SUB-Q (20:56)
[2021-03-23] MEDS: traZODone HCL 25 MG TABLET PO (20:57)
[2021-03-23] MEDS: MINERAL OIL/WHITE PETROLATUM OINTMENT 1 APPLIC EACH EYE (20:57)
[2021-03-23 21:16] LABS: Glucose Point of Care 248 mg/dl (65-105)
[2021-03-24] VITALS (8 sets, daily range): BP systolic 104–105; BP diastolic 51–56; PULSE 49–111; RESP 16; TEMP 36.4–36.6; O2SAT 97–98
[2021-03-24] MEDS: LEVOTHYROXINE SODIUM 125 MCG TABLET PO (05:50)
[2021-03-24 06:50] LABS: Hematocrit 37.4 % (37.0-47.0); Hemoglobin 11.9 g/dL (12.0-15.0); Mean Corpuscular HGB Conc 31.8 g/dl (32-36); Mean Corpuscular Hemoglobin 29.1 pg (26-34); Mean Corpuscular Volume 91.4 fl (80-100); Mean Platelet Volume 9.3 fl (7.4-10.4); Platelet Count Result 337 k/mm3 (150-375); Red Blood Count 4.09 M/mm3 (4.2-5.4); Red Cell Distribution Width 18.9 % (11.5-14.5); White Blood Count 10.3 K/mm3 (4.5-10.0)
[2021-03-24 07:10] LABS: Albumin Level 3.1 g/dL (3.5-5.1); Anion Gap 6 mmol/L (8-16); Blood Urea Nitrogen 14 mg/dL (7-17); Calcium 8.1 mg/dL (8.4-10.2); Carbon Dioxide 32 mmol/L (22-30); Chloride 89 mmol/L (98-107); Estimated CRCL calculation 53 ml/min; Estimated Glomerular Filt Rate > 60; Glucose 142 mg/dL (65-110); Phosphorus 2.5 mg/dL (2.5-4.5); Potassium 3.7 mmol/L (3.4-5.0); Sodium 127 mmol/L (137-145)
--- NOTE | 2021-03-24 07:43 | PCNSR ---
On 03/21/21, the student, Myra Velasco, provided care and completed [facility] documentation on this patient. I have reviewed the student's documentation and agree with the findings.
[2021-03-24 07:48] LABS: Glucose Point of Care 136 mg/dl (65-105)
[2021-03-24] MEDS: CHOLECALCIFEROL 1,000 UNITS TABLET 1000 UNITS PO (08:51)
[2021-03-24] MEDS: OPTI-GEN TAB 1 TABLET PO ×2 (08:51→17:06)
[2021-03-24] MEDS: SACUBITRIL/VALSARTAN 24-26 MG TABLET 1 TAB PO (08:51)
[2021-03-24] MEDS: APIXABAN 5 MG TABLET PO (08:52)
[2021-03-24] MEDS: guaiFENesin 12 HR 600 MG TABCR PO (08:52)
[2021-03-24] MEDS: FUROSEMIDE 40 MG TABLET PO (08:52)
[2021-03-24] MEDS: AMIODARONE HCL 100 MG TABLET PO (08:52)
[2021-03-24] MEDS: METOPROLOL TARTRATE 25 MG TABLET PO (08:52)
[2021-03-24] MEDS: SPIRONOLACTONE 25 MG TABLET PO (08:52)
[2021-03-24] MEDS: DULoxetine HCL 30 MG CAPSULE.DR PO (08:52)
[2021-03-24] MEDS: PANTOPRAZOLE 40 MG TABLET PO (08:52)
[2021-03-24] MEDS: amLODIPine BESYLATE 5 MG TABLET 10 MG PO (08:52)
[2021-03-24] MEDS: ARTIFICIAL TEARS OPHTH SOLN 15 ML BOTTLE 1 DROP EACH EYE (08:53)
--- NOTE | 2021-03-24 08:57 | PM.PNCARD ---
Progress Note: A&P Assessment and Plan (1) Acute diastolic CHF (congestive heart failure): Code(s): I50.31 - Acute diastolic (congestive) heart failure Status: Acute Assessment and Plan: New onset of CHF Echo showing Severe left ventricular hypokinesis with an estimated ejection fraction 15-20%. 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 Grade 2 diastolic dysfunction is present. Continue oral furosemide Initiate medical therapy with Entresto 24/26 and spironolactone 25 mg Monitor blood pressure Daily BMP Discussed [facility] as an outpatient to evaluate for ischemic etiology of her cardiomyopathy. (2) LBBB (left bundle branch block): Code(s): I44.7 - Left bundle-branch block, unspecified Status: Acute Assessment and Plan: LBBB noted (3) PAF (paroxysmal atrial fibrillation): Code(s): I48.0 - Paroxysmal atrial fibrillation Status: Acute Assessment and Plan: History of paroxysmal atrial fibrillation,remaining in NSR on amiodarone, anticoagulated with apixaban. Will lower her apixaban to 2.5 p.o. given age and weight especially given her history of falls (4) Falls: Code(s): W19.XXXA - Unspecified fall, initial encounter Status: Acute Assessment and Plan: Frequent falls due to loss of balance, with a pelvic fracture and C1 fracture. Currently nonambulatory so will continue Eliquis. Will reassess anticoagulation as recovery and mobility progress. (5) Acute hyperkalemia: Code(s): E87.5 - Hyperkalemia Status: Acute Assessment and Plan: Resolved. (6) Hyponatremia: Code(s): E87.1 - Hypo-osmolality and hyponatremia Status: Acute (7) On amiodarone therapy: Code(s): Z79.899 - Other [facility] (current) drug therapy Status: Acute Assessment and Plan: Needs to have CXR, thyroid and liver monitored. No evidence of pulmonary toxicity. TSH was normal. Subjective Date/time seen: 03/24/21 08:57 Interval history: Follow-up visit in this 80-year-old lady with: Paroxysmal atrial fibrillation being maintained in sinus rhythm with amiodarone. She presented with congestive heart failure and echocardiogram is highly suspicious of takotsubo cardiomyopathy. She has been treated as such and is improving. Today the patient reports no ongoing shortness of breath she has some generalized weakness no other specific complaints. She has been treated with intravenous furosemide which continues and has been started on Entresto. Date of service 03/24/2021: . Patient is asymptomatic. She has No shortness of breath or chest pain. No passing out Review of Systems Constitutional: Constitutional: Reports fatigue, Denies headache(s), Reports lethargy and Reports weakness ENT: Denies Normal hearing present, Denies headache(s) and Denies epistaxis Cardiovascular: Cardiovascular: Denies chest pain, Reports pedal edema, Denies leg edema, Reports palpitations (brief), Reports dyspnea and Reports dyspnea on exertion Respiratory: Respiratory: Reports dyspnea and Reports dyspnea on exertion Gastrointestinal: Gastrointestinal: Denies abdominal pain and Reports diarrhea Genitourinary: Genitourinary: Reports dysuria Musculoskeletal: Musculoskeletal: Reports back pain and Reports arthralgias Integumentary/Breasts: Skin/Breast: Denies rash Neurologic: Denies Normal hearing present, Denies headache(s) and Reports weakness Psychiatric: Psychiatric: Reports anxiety Endocrine: Endocrine: Reports fatigue and Reports palpitations (brief) Hematologic/Lymphatic: Hematologic/Lymphatic: Denies easy bleeding Allergic/Immunologic: Allergic/Immunologic: Denies GI upset with certain foods Exam Const: General: comfortable and no acute distress Orientation/consciousness: patient oriented x3 HENMT: General nose exam: no epistaxis Mouth
--- NOTE | 2021-03-24 10:21 | PM.DS ---
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 Patient denies any fevers, any rigors, any chills, any nausea, vomiting, abdominal pain, diarrhea ,has had poor appetite, impart due to the presence of [place] collar, which makes it difficult for her to chew. Preliminary workup was significant for a sodium 124, a potassium of 5.7, a brain natriuretic peptide of 35,000, a chest x-ray showed left pleural effusion and infiltrate and a urinalysis was significant for numerous wbc's present. Patient has been admitted for further evaluation, management and treatment. Hospital Course: 03/21/21 interval history 13:53 patient 80-year-old female a resident of [facility] with history of atrial fibrillation anticoagulated presented emergency department with a complaint shortness of breath suspect congestive heart failure to further evaluate patient had a cardiac echo showed patient has severe systolic dysfunction with ejection fraction of 15-20% patient seen by [facility] certified network professional and patient is being diuresed IV Lasix 40 mg b.i.d. will continue to monitor I's and Os, also patient has hyponatremia most likely hemodilution if patient may be 3rd spacing the fluid, patient is seen by nut roaster helper and further recommendation to follow, will have a PT OT evaluate the patient and further recommendation to follow. 03/22/21 interval history: patient with severe systolic dysfunction with ejection fraction of 15-20% patient is being diuresed with IV Lasix 40 mg b.i.d., is feeling much better compared to when she arrived not as short of breath, patient seen by Cardiology and further recommendation to follow. upon arrival to concern for UTI urine culture is growing Enterococcus patient is being treated Zosyn, and there was also concern for pneumonia and being treated with Zosyn and vancomycin will repeat chest x-ray and further recommendation to follow, will encourage patient to participate PT OT and further recommendation to follow. 03/23/21 interval history: patient with severe systolic dysfunction with ejection fraction of 15-20% patient is being diuresed with IV Lasix 40 mg b.i.d., is feeling much better compared to when she arrived not as short of breath, patient was seen by Cardiology and switched to oral lasix from today, upon arrival to concern for UTI urine culture is growing Enterococcus patient is being treated Zosyn, and there was also concern for pneumonia and being treated with Zosyn and vancomycin, chest x-ray on 03/22 showed stable infiltrated will CPM and further recommendation to follow, will encourage patient to participate PT OT and further recommendation to follow. possibly discharge tomorrow. Today patient is clinically stable and to baseline, will discharge today Status at Discharge Functional status at discharge: wheelchair bound Overall status at discharge: patient is back to baseline Time Spent with Patient Time attestation: Total time spent providing and/or coordinating discharge services
[2021-03-24 12:15] LABS: Glucose Point of Care 170 mg/dl (65-105)
--- NOTE | 2021-03-24 13:43 | PCPTNOTE ---
Attempted to see patient for PT at this time, however patient had her lunch to eat.
--- NOTE | 2021-03-24 13:50 | PCOTNOTE ---
Pt. refused occupational therapy this date. Stated No, I just got my lunch, plus I want to know when I'm going home. Nursing entered room to discuss D/C planning.
--- NOTE | 2021-03-24 14:36 | PCPTNOTE ---
Attempted to see patient for PT at this time, however patient refused to participate in therapy. Patient reported she is already discharged.
[2021-03-24 17:04] LABS: Glucose Point of Care 175 mg/dl (65-105)
[2021-03-24] MEDS: ACETAMINOPHEN 325 MG TABLET 650 MG PO (17:05)
[2021-03-24] MEDS: APIXABAN 2.5 MG TABLET PO (17:06)
[2021-03-24] MEDS: ALPRAZolam (*CRX) 0.5 MG TABLET PO (17:06)
[2021-03-24] MEDS: ATORVASTATIN 10 MG TABLET PO (17:06)
[2021-03-24 17:58] LABS: EDCOVIDSCREEN Negative (Negative)
[2021-03-24 19:00] LABS: Albumin 2.8 g/dL (3.8-4.8); Alpha 1 Globulin 0.5 g/dL (0.2-0.3); Alpha 2 Globulin 0.9 g/dL (0.5-0.9); Beta 1 Globulin 0.3 g/dL (0.4-0.6); Gamma Globulin 0.7 g/dL (0.8-1.7); Protein, Total 5.4 g/dL (6.1-8.1)
[2021-03-25 16:56] LABS: Chloride Rand Ur 65 mmol/L (32-290); Chloride/Creatinine Rand Ur 382 (38-318); Creatinine Random Urine 17 mg/dL (20-275)
[2021-03-25 17:53] LABS: Creatinine, Random Urine 26 mg/dL (20-275); Total Protein/Creatinine Ratio 423 mg/g creat (21-161)
[2021-03-26 09:02] LABS: Osmolality, Urine 303 mOsm/kg (50-1200)
== END 2021-03-24 18:15 | disposition home or self-care (01) | DRG 291 ==
LOC: ANHED 21:39 → ANH3MED 03-20 01:45
PROVIDERS: Internal Medicine Nephrology; Physician Assistant; Admitting Provider Internal Medicine; Emergency Provider Family Medicine; PCP Physician Assistant; Visit Provider Family Medicine
DX: I11.0 Hypertensive heart disease with heart failure (principal); S72.001A Fracture of unspecified part of neck of right femur, initial encounter for closed fracture; I50.41 Acute combined systolic (congestive) and diastolic (congestive) heart failure; J18.9 Pneumonia, unspecified organism; S12.000A Unspecified displaced fracture of first cervical vertebra, initial encounter for closed fracture; E87.1 Hypo-osmolality and hyponatremia; N39.0 Urinary tract infection, site not specified; K21.9 Gastro-esophageal reflux disease without esophagitis; E11.9 Type 2 diabetes mellitus without complications; M19.90 Unspecified osteoarthritis, unspecified site; M81.0 Age-related osteoporosis without current pathological fracture; D50.9 Iron deficiency anemia, unspecified; E78.5 Hyperlipidemia, unspecified; E03.9 Hypothyroidism, unspecified; I48.0 Paroxysmal atrial fibrillation; I51.81 Takotsubo syndrome; F32.A Depression, unspecified; I44.7 Left bundle-branch block, unspecified; E87.5 Hyperkalemia; K90.0 Celiac disease; Z79.01 Long term (current) use of anticoagulants; Z86.718 Personal history of other venous thrombosis and embolism; Z98.41 Cataract extraction status, right eye; Z90.49 Acquired absence of other specified parts of digestive tract; Z98.42 Cataract extraction status, left eye; Z87.891 Personal history of nicotine dependence; W19.XXXA Unspecified fall, initial encounter; Z20.822 Contact with and (suspected) exposure to COVID-19; R91.8 Other nonspecific abnormal finding of lung field; B95.2 Enterococcus as the cause of diseases classified elsewhere; L89.152 Pressure ulcer of sacral region, stage 2
CPT/HCPCS: 36415; 51701; 71045; 76705; 80048; 80053; 80069; 80074; 80202; 81001; 81050; 82436; 82533; 82570; 82607; 82728; 82746; 82948; 83540; 83550; 83735; 83880; 83930; 83935; 84100; 84155; 84156; 84165; 84166; 84300; 84443; 84484; 85025; 85027; 87040; 87077; 87086; 87088; 87186; 87426; 93005; 93306; 93970; 96365; 96366; 96367; 96375; 96376; 97110; 97116; 97161; 97166; 97535; 99285; A9270; C9803; G0378; J1815; J1940; J2543; J3370

== ENCOUNTER 2021-03-28 01:38 | Inpatient (IN) | payer OTHER, SELFPAY ==
[2021-03-28] VITALS (22 sets, daily range): BP systolic 109–140; BP diastolic 49–118; PULSE 76–86; RESP 12–33; TEMP 36.2–36.6; O2SAT 90–99; BMI 26.2
--- NOTE | ~2021-03-28 | XR_ITS ---
EXAMINATION: XR barium swallow modified EXAM DATE: 03/29/2021 10:34 INDICATION: Coughing with eating. TECHNIQUE: Modified barium esophagram was performed by speech pathologist with radiologist Dr. Eric Kim present to administered fluoroscopy. Speech pathologist administered barium in varying consis tencies as per speech pathologist documentation. This was recorded on tape. There was total fluorosc opic time of 0.6 minutes. The DAP for this procedure was 0.56 Gycm2. A total of 2 images sent to [facility] CS from the exam. FINDINGS: Oral stage: Adequate function. Pharyngeal phase: Dysfunction. Laryngeal penetration: Demonstrated, liquids and pudding consistency. Aspiration: Demonstrated. Laryngeal sensitivity: Present. IMPRESSION: Aspiration demonstrated; Please refer to speech pathologist findings and specific feedi ng recommendations. Reviewed, dictated and finalized at location A. OYMENT INTERVIEWER IMPRESSION: Aspiration demonstrated; Please refer to speech pathologist findi ngs and specific feeding recommendations.
--- NOTE | ~2021-03-28 | XR_ITS ---
XR chest 1V portable DATE: 03/28/2021 02:08 INDICATION: Dyspnea. History of congestive heart failure, hypertension, atrial fibrillation TECHNIQUE: Portable AP chest on 03/28/2021 0201 hours COMPARISON: 03/22/2021 portable AP chest FINDINGS: There is cardiomegaly. There is extensive thoracic aortic calcification and some thoracic a ortic unfolding. There is pulmonary vascular congestion and redistribution. There are Meghan B-lines consistent with p ulmonary interstitial edema. There are bilateral central and lower lung zone infiltrates, with partic ular increased density in the left retrocardiac area of the left lower lobe atelectasis and/or consol idation. There is a focal peripheral pleural-based wedge-shaped infiltrate in the mid to upper lateral right l paco, right upper lobe; consider pulmonary embolus/infarct Small pleural effusions may be present. Diffuse osteopenia. Degenerative change of the thoracic spine. Osteoarthritic change of the right gle nohumeral joint, degenerative change at the acromioclavicular joints. IMPRESSION: Cardiomegaly, pulmonary vascular congestion, pulmonary interstitial edema and bilateral c entral and lower lung infiltrates primarily, suggesting congestive heart failure and pulmonary edema Focal peripheral pleural based wedge-shaped right upper lobe infiltrate; consider pulmonary embolus o r infarct Pneumonia is not excluded. Aspiration pneumonitis is not excluded. Extensive thoracic aortic calcification Diffuse osteopenia Degenerative changes of the right and left shoulders and thoracic spine Reviewed, dictated and finalized at location A. INGS INSPECTOR IMPRESSION: Cardiomegaly, pulmonary vascular congestion, pulmonary interstitial edema and bilateral central and lower lung infiltrates primarily, suggesting c ongestive heart failure and pulmonary edema Focal peripheral pleural based wedge-shaped right upper lobe infiltrate; consid er pulmonary embolus or infarct Pneumonia is not excluded. Aspiration pneumonitis is not excluded. Extensive thoracic aortic calcification Diffuse osteopenia Degenerative changes of the right and left shoulders and thoracic spine
--- NOTE | ~2021-03-28 | XR_ITS ---
EXAMINATION: XR chest 1V portable DATE: 04/01/2021 13:31 INDICATION: Shortness of breath. TECHNIQUE: A single frontal view of the chest was obtained. COMPARISON: Chest single view 03/28/2021, chest CT 03/28/2021 FINDINGS: There are patchy airspace opacities in all lung zones bilaterally. There are small right an d moderate-sized left pleural effusions. No pneumothorax. Cardiomegaly is noted. IMPRESSION: 1. Worsened diffuse lung disease, consistent with pulmonary edema versus pneumonia. 2. Stable small right and moderate-sized left pleural effusions. 3. Cardiomegaly. Reviewed, dictated and finalized at location B. RAM MANAGER SLP IMPRESSION: 1. Worsened diffuse lung disease, consistent with pulmonary edema versus pneumo kin. 2. Stable small right and moderate-sized left pleural effusions. 3. Cardiomegaly.
--- NOTE | ~2021-03-28 | CT_ITS ---
EXAMINATION: CTA chest PE protocol DATE: 03/28/2021 20:29 INDICATION: Hypoxia TECHNIQUE: Computed tomography (CT) pulmonary angiogram of the chest was performed with 100 mL Omnipa que-350 intravenous contrast. Additional 3D reconstructions utilizing coronal maximum intensity proje ction (MIP) were performed. Automated exposure control and iterative reconstruction technique were em ployed. The dose-length product was 243.22 mGy-cm. COMPARISON: None FINDINGS: Excellent contrast opacification of the pulmonary arteries. There is mild streak artifact from dense contrast in the left brachiocephalic vein, superior vena cava and right atrium. Scattered prominent r espiratory motion artifact which decreases sensitivity in the subsegmental pulmonary arteries at vari ous levels in the lung. No pulmonary embolism identified. Moderate-sized bilateral posterior layering pleural effusions with left lower lobar collapse and significant compressive atelectasis in the depe ndent right lower lobe. There are patchy groundglass opacities throughout the remainder of the lungs which could represent pneumonia including COVID pneumonia or pulmonary edema. Cardiomegaly. Atheroscl erotic coronary artery calcifications. Aortic valve calcific location and dense mitral annular calcif ic location. No pericardial effusion. Thoracic aorta is normal in caliber. No pathologically enlarged thoracic lymphadenopathy. Small sliding-type hiatal hernia with large amount of fluid throughout the esophagus which could be related to reflux. Reflux of contrast into the inferior vena cava and hepat ic veins consistent with tricuspid regurgitation. Moderate lower cervical spondylosis. Mild thoracic spondylosis. IMPRESSION: 1. No pulmonary embolism. Sensitivity decreased in some of the subsegmental pulmonary arteries due to significant respiratory motion scattered throughout the lungs. 2. Moderate-sized bilateral pleural effusions with collapse of the left lower lobe and significant de pendent compressive atelectasis in the right lower lobe. 3. Scattered patchy groundglass opacities throughout the remainder of both lungs which could represen t pneumonia or pulmonary edema. 4. Cardiomegaly. 5. Significant reflux of contrast into the inferior vena cava and hepatic veins consistent with tricu spid regurgitation. 6. Small sliding-type hiatal hernia with large amount of fluid in the esophagus suggesting reflux. Reviewed, dictated and finalized at location A. DRY MANAGER IMPRESSION: 1. No pulmonary embolism. Sensitivity decreased in some of the subsegmental pul monary arteries due to significant respiratory motion scattered throughout the lungs. 2. Moderate-sized bilateral pleural effusions with collapse of the left lower l obe and significant dependent compressive atelectasis in the right lower lobe. 3. Scattered patchy groundglass opacities throughout the remainder of both lung s which could represent pneumonia or pulmonary edema. 4. Cardiomegaly. 5. Significant reflux of contrast into the inferior vena cava and hepatic veins consistent with tricuspid regurgitation. 6. Small sliding-type hiatal hernia with large amount of fluid in the esophagus suggesting reflux.
--- NOTE | 2021-03-28 01:46 | ECG_ITS ---
Measurements Intervals [place] Rate: 85 P: 114 NH: 207 QRS: -50 QRSD: 186 T: 93 QT: 455 QTc: 543 Interpretive Statements SINUS RHYTHM WITH FIRST DEGREE AV BLOCK LEFT AXIS DEVIATION LEFT BUNDLE BRANCH BLOCK BASELINE ARTIFACT- III, AVF ABNORMAL ECG Electronically Signed On 03-28-2021 6:25:19 [employer] UP MAN by Jamie Fernandez D.O.
--- NOTE | 2021-03-28 01:49 | ED.SOB ---
HPI - SOB/Dyspnea General Chief Complaint: Shortness of Breath/Dyspnea Stated Complaint: sob Time Seen by Provider: 03/28/21 01:42 Source: patient History of Present Illness HPI Narrative: Patient presents with shortness of breath. She reports she was recently noted for heart failure. She is doing well however she had increased shortness of breath tonight and reported having a difficult catching air. Reports a mild cough but denies fevers or congestion. She denies chest pain, lightheadedness, dizziness. Reports she is normally on 2 L since her discharge however ended up going up to 3 L when she started complaining of shortness of breath EMS brought 4 L of nasal cannula and she was satting 94% Related Data Home Medications Medication Instructions Recorded Confirmed apixaban 2.5 mg tablet 2.5 mg PO BID 12/12/19 03/20/21 atorvastatin 10 mg tablet 10 mg PO DAILY 12/12/19 03/20/21 cholecalciferol (vitamin D3) 25 25 mcg PO DAILY 12/12/19 03/20/21 mcg (1,000 unit) chewable tablet diphenoxylate-atropine 2.5 1 tablet PO PRN PRN 12/12/19 03/20/21 mg-0.025 mg tablet levothyroxine 125 mcg capsule 125 mcg PO DAILY 12/12/19 03/20/21 metoprolol tartrate 25 mg tablet 25 mg PO BID 12/12/19 03/20/21 Lantus U-100 Insulin 8 unit SUBCUT HS 07/03/20 03/20/21 amlodipine 10 mg PO DAILY 07/03/20 03/20/21 metformin 850 mg PO BID 07/03/20 03/20/21 PreserVision AREDS-2 1 tablet PO BID 07/04/20 03/20/21 Ultra Fresh PM 1 applic EACH EYE HS 07/04/20 03/20/21 carboxymethylcellulose sodium 1 drp EACH EYE 4-6XD PRN 07/04/20 03/20/21 amiodarone 100 mg PO DAILY 03/20/21 03/20/21 duloxetine 30 mg PO DAILY 03/20/21 03/20/21 guaifenesin [Mucinex] 600 mg PO BID 03/20/21 03/20/21 Allergies Allergy/AdvReac Type Severity Reaction Status Date / Time gluten Allergy Unknown Unknown Verified 03/28/21 03:59 Review of Systems Review of Systems: CONSTITUTIONAL: Denies fever, chills, or sweats. EYES: Denies visual changes, redness, or discharge. ENT: Denies rhinorrhea, congestion, sore throat, or otalgia. CARDIOVASCULAR: Denies chest pain, palpitations, or edema. RESPIRATORY: Reports shortness of breath and cough GASTROINTESTINAL: Denies abdominal pain, nausea, vomiting, or diarrhea. GENITOURINARY: Denies dysuria or hematuria. SKIN: Denies rash or itching. MUSCULOSKELETAL: Denies back pain, joint pain, or myalgia. NEUROLOGIC: Denies headache, numbness, dizziness, or weakness. PSYCHIATRIC: Denies anxiety or depression. All systems reviewed & are unremarkable except as noted in HPI and below PMFSH Past Medical History Medical History (Updated 03/28/21 @ 03:37 by Vee Santamaria DO) Anemia Atrial fibrillation Celiac disease Chronic anticoagulation Combined systolic and diastolic congestive heart failure Echocardiogram 03/20/2021: Severe left ventricular hypokinesis with EF of 15-20% with calculated EF of 18%, akinesis of the distal half of the ventricle with some sparing of the base suggesting possible Takotsubo cardiomyopathy, grade 2 diastolic dysfunction, right ventricular chamber mildly enlarged, severe left atrial enlargement moderate tricuspid regurgitation, moderate pulmonary hypertension with RVSP of 55, significantly elevated right atrial pressures 15, cannot rule out inferior vena cava thrombus Deep vein thrombosis of left lower extremity (~12/2019) [place] Gastroesophageal reflux disease History of paroxysmal supraventricular tachycardia Hyperlipemia Hypertension Hypothyroidism Insulin dependent type 2 diabetes mellitus Iron deficiency anemia Left bundle branch block On amiodarone therapy Osteoarthritis Osteoporosis Pulmonary hypertension Moderate pulmonary hypertension with RVSP of 55 on echocardiogram 03/2021 QT prolongation Surgical History Surgical History Hip fracture (~05/2016) Status post IT Gamma hans. History of bilateral cataract extraction History of cholecystectomy History of solitario
[2021-03-28] MEDS: FUROSEMIDE INJ 40 MG/4 ML VIAL IV PUSH (01:55)
[2021-03-28 02:12] LABS: Alveolar/Arterial O2 Gradient 141.3 mmHg; Base Excess ABG 2.8 mEq/l (+/-2.0); Device NASAL CANNULA; Fractional Inspired Oxygen 36 %; HCO3 ABG 28.2 mEq/l (22.0-26.0); Modified Allen's Test Pass; Oxygen Content ABG 16.6 %vol (16.0-22.0); Oxygen Saturation ABG 91.4 % (95.0-100.0); Oxyhemoglobin 88.8 % THb (90.0-100.0); PCO2 ABG 46.5 mmHg (35.0-45.0); PO2 ABG 61.4 mmHg (80.0-100.0); PO2 FiO2 Ratio Arterial Blood 1.71 %; Site Drawn RIGHT RADIAL; Total Hemoglobin 13.3 g/dL (12.0-18.0); pH ABG 7.401 (7.350-7.450)
[2021-03-28 02:15] LABS: Basophils Absolute Auto 0.1 K/mm3 (0.0-0.1); Basophils Percent Auto 0.3 % (0.2-1.2); Hematocrit 40.9 % (37.0-47.0); Hemoglobin 13.3 g/dL (12.0-15.0); Immature Granulocyte Absolute 0.14 K/mm3 (0.00-0.031); Immature Granulocyte Percent A 0.7 % (0-0.5); Lymphocytes Absolute Auto 0.99 K/mm3 (0.9-3.2); Lymphocytes Percent Auto 4.9 % (18.3-44.2); Mean Corpuscular HGB Conc 32.5 g/dl (32-36); Mean Corpuscular Hemoglobin 28.9 pg (26-34); Mean Corpuscular Volume 88.7 fl (80-100); Mean Platelet Volume 9.4 fl (7.4-10.4); Monocytes Absolute Auto 1.8 K/mm3 (0.1-0.6); Monocytes Percent Auto 8.8 % (2.6-8.5); Neutrophils Absolute Auto 17.2 K/mm3 (1.3-6.7); Neutrophils Percent Auto 85.3 % (45.5-73.1); Platelet Count Result 363 k/mm3 (150-375); Red Blood Count 4.61 M/mm3 (4.2-5.4); Red Cell Distribution Width 18.6 % (11.5-14.5); White Blood Count 20.1 K/mm3 (4.5-10.0)
[2021-03-28 02:27] LABS: Alanine Aminotransferase 45 U/L (4-35); Albumin Level 3.9 g/dL (3.5-5.1); Alkaline Phosphatase 280 U/L (38-126); Anion Gap 9 mmol/L (8-16); Aspartate Amino Transferase 45 U/L (14-36); Blood Urea Nitrogen 14 mg/dL (7-17); Carbon Dioxide 27 mmol/L (22-30); Chloride 85 mmol/L (98-107); Estimated Glomerular Filt Rate > 60; Glucose 253 mg/dL (65-110); Potassium 5.1 mmol/L (3.4-5.0); Sodium 121 mmol/L (137-145)
--- NOTE | 2021-03-28 02:29 | PC.NURSE ---
RN noted that code status paper was marked full code, but Pt had verbalized that she wanted to be DNR. RN called Gabby(Daughter) to update her about pt being in the ER. verified with daughter that pt did want to be DNR with selective med treatment. RN spoke with ERP about having pt sign new code status form. RN spoke with Pt, verified that she does want to be DNR. new DNR form signed by Pt. copies made and placed on the chart with original.
[2021-03-28 02:36] LABS: NT Pro B Type Natriuretic Pept > 35000 pg/mL (5-100)
[2021-03-28] MEDS: ONDANSETRON INJ 4 MG/2 ML VIAL IV PUSH (02:58)
[2021-03-28 03:00] LABS: Add Urine Microscopic? YES; Appearance Urine Clear (Clear); Bilirubin Urine Negative (Negative); Blood Urine 2+ (Negative); Color Urine Yellow (Yellow); Glucose Urine UA 3+ mg/dL (Negative); Ketones Urine Negative (Negative); Leukocyte Esterase Ur Negative LEU/UL (Negative); Mucus Urine Rare /lpf; Nitrate Urine Negative (Negative); Protein Urine 1+ mg/dL (Negative); RBC Urine >75 /hpf (0-2); Squamous Epithelial Cell Urine Rare /hpf (Few); Urobilinogen Urine Negative mg/dL (<2.0)
[2021-03-28 03:13] LABS: Lactic Acid Reflex 3.6 mmol/L (0.7-2.1)
--- NOTE | 2021-03-28 03:14 | PM.IMHP ---
H&P: HPI History of Present Illness Date/Time: 03/28/21 03:14 Chief Complaint: Shortness of breath Narrative: 80-year-old female with past medical history of hypertension, hyperlipidemia, diabetes mellitus, atrial fibrillation on chronic anticoagulation and recent diagnosis of cardiomyopathy who presented to the ER from [facility] via EMS due to increased shortness of breath. The patient was hospitalized from 03/19/2021 through 03/24/2021 due to hyponatremia and systolic and diastolic congestive heart failure due to cardiomyopathy. Patient was discharged back to her senior living facility at that time on 2 L nasal cannula. The patient was reporting shortness of breath and [facility] staff increase the patient's oxygen to 3 L nasal cannula on EMS arrival at the facility the patient was hypoxic in her oxygen was increased further to 4 L nasal cannula. On arrival to the ER patient was satting 95% on 4 L nasal cannula. The patient reports that over the last several days she has developed a cough productive of tony sputum. She has felt feverish but does not know if she has had a fever at the [facility]. She reports that she has had intermittent chest pains on and off for the last several months but they have not changed since her last hospitalization. She is not currently having any chest pain at this time. She is fully vaccinated against COVID-19. She has not had any increased lower extremity swelling since he was discharged from the hospital. She had 1 hard formed brown stool on the morning of the . She reports that her Ball catheter was just taken out on the . She still has some mild dysuria following its removal but it is improved from compared to prior. She has been noticing some coughing when she tries to eat or swallow. She reports an extremely decreased appetite. She denies any abdominal pain or nausea. She is currently alert and oriented x3 and is a fair historian. She states that she has a decubitus ulcer on her coccyx. I was unable to reposition the patient on my own and I have asked nursing staff to take pictures to document the wound. The patient's extremities are cold to touch she states that she does not feel cold in that she thinks this is her baseline. Review of Systems Review of Systems: 12 systems were reviewed with pertinent positives and negatives per HPI. Except as documented in the HPI, all other systems were reviewed and are negative. PMFSH Past Medical History Medical History (Updated 03/28/21 @ 06:06 by Vee Santamaria DO) Anemia Atrial fibrillation C1 cervical fracture (~01/2021) Celiac disease Chronic anticoagulation Combined systolic and diastolic congestive heart failure Echocardiogram 03/20/2021: Severe left ventricular hypokinesis with EF of 15-20% with calculated EF of 18%, akinesis of the distal half of the ventricle with some sparing of the base suggesting possible Takotsubo cardiomyopathy, grade 2 diastolic dysfunction, right ventricular chamber mildly enlarged, severe left atrial enlargement moderate tricuspid regurgitation, moderate pulmonary hypertension with RVSP of 55, significantly elevated right atrial pressures 15, cannot rule out inferior vena cava thrombus Deep vein thrombosis of left lower extremity (~12/2019) [place] Gastroesophageal reflux disease History of paroxysmal supraventricular tachycardia Hyperlipemia Hypertension Hypothyroidism Insulin dependent type 2 diabetes mellitus Iron deficiency anemia Left bundle branch block On amiodarone therapy Osteoarthritis Osteoporosis Pulmonary hypertension Moderate pulmonary hypertension with RVSP of 55 on echocardiogram 03/2021 QT prolongation Surgical History Surgical History (Updated 03/28/21 @ 06:01 by Vee Santamaria DO) Hip fracture (~05/2016) Status post IT Gamma hans. History of bilateral cataract extraction History of cholecystectomy History of patellar fracture Status post ORIF
--- NOTE | 2021-03-28 04:53 | ADMGEN ---
This patient, Lina Little, was admitted to [facility] Room 325-01 at 4:25. Patient/family oriented to hospital policies and general routines including ID bracelet, bed and alarms, visiting hours, pain management, procedures, bathroom and other care routines, personal items, smoking policy, room service/diet, and visiting hours. Information on how to activate the Rapid Response Team has been discussed. Patient/Family are encouraged to report perceived risks to care and to ask questions if they do not understand what they are told or what they should do.
[2021-03-28 06:00] LABS: Reflex Lactic Acid Yes or No Add Lactic
[2021-03-28 06:37] LABS: Lactic Acid 2.9 mmol/L (0.7-2.1)
[2021-03-28 08:14] LABS: Glucose Point of Care 301 mg/dl (65-105)
[2021-03-28] MEDS: INSULIN ASPART (*BKC) 100 UNITS/ML SUB-Q ×3 (09:16→17:03)
[2021-03-28 09:22] LABS: Anion Gap 11 mmol/L (8-16); Blood Urea Nitrogen 19 mg/dL (7-17); Calcium 8.6 mg/dL (8.4-10.2); Carbon Dioxide 25 mmol/L (22-30); Chloride 84 mmol/L (98-107); Estimated CRCL calculation 46 ml/min; Estimated Glomerular Filt Rate > 60; Glucose 318 mg/dL (65-110); Potassium 4.9 mmol/L (3.4-5.0); Sodium 120 mmol/L (137-145)
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
--- NOTE | 2021-03-28 12:12 | PCSTNOTE ---
Patient is either COVID pending or COVID positive and therefore Radiology cannot complete this procedure today. Speech Therapy will watch for results of testing to determine when MBS can be completed.
[2021-03-28 12:31] LABS: Glucose Point of Care 307 mg/dl (65-105)
--- NOTE | 2021-03-28 12:42 | PM.CNCAR ---
Assessment and Plan Assessment and plan (1) LBBB (left bundle branch block): Code(s): I44.7 - Left bundle-branch block, unspecified Status: Acute (2) Acute on chronic systolic (congestive) heart failure: Code(s): I50.23 - Acute on chronic systolic (congestive) heart failure Status: Acute Assessment and Plan: Acute on chronic systolic heart failure. Likely worsened from underlying pneumonia. Will transition metoprolol tartrate to metoprolol succinate 25 mg daily. Entresto 24/26 mg p.o. b.i.d. to be started. She likely needs a coronary angiogram next week to define her anatomy given her severe and new cardiomyopathy. Diuresis as needed. Atorvastatin 10 mg daily. Hold amlodipine. (3) Hyponatremia: Code(s): E87.1 - Hypo-osmolality and hyponatremia Status: Acute Assessment and Plan: Severe. Hospitalist to workup. Will need fena (4) Atrial fibrillation: Qualifiers: Atrial fibrillation type: unspecified Qualified Code(s): I48.91 - Unspecified atrial fibrillation Code(s): I48.91 - Unspecified atrial fibrillation Status: Chronic Assessment and Plan: On anticoagulation with Eliquis. This will be continued (5) Chronic anticoagulation: Code(s): Z79.01 - bed bug exterminator (current) use of anticoagulants Status: Chronic Assessment and Plan: No bleeding problems (6) Pneumonia: Qualifiers: Laterality: unspecified laterality Lung location: unspecified part of lung Pneumonia type: due to unspecified organism Qualified Code(s): J18.9 - Pneumonia, unspecified organism Code(s): J18.9 - Pneumonia, unspecified organism Status: Acute Assessment and Plan: On antibiotics (7) Chest pain: Code(s): R07.9 - Chest pain, unspecified Status: Acute Assessment and Plan: Will check a troponin. I do not see the troponins were drawn yesterday despite having significant chest pain History of Present Illness History of Present Illness Consult date/time: 03/28/21 12:42 Requesting physician: Flakito Cassidy MD Consult reason: congestive heart failure Reason For Visit: Pneumonia Narrative: Date of service 03/28/2021 Reason consultation: CHF Requesting provider Dr. Irving History patient is a an 80-year-old female patient of [facility] who has atrial fibrillation and is on chronic anticoagulation who was recently in this hospital because acute systolic congestive heart failure. Echocardiogram showed ejection fraction 15-20%. She does have a left bundle branch block and she was diuresed and discharged to the nursing facility. While at the nursing facility however she became more short of breath and developed a cough. White count is increased and she had a subjective fever. She also has been having chest pains off and on and states that she had severe chest pain yesterday but has had no chest pain today. Shortness of breath has been progressively worsening. No syncope but has had presyncope. No paroxysmal nocturnal dyspnea orthopnea. Oxygen dependency has gone up from 2 L up to 4 L. In the emergency room she is found to be severely hyponatremic. Mental state waxes and wanes. BNP is over 35,000. White count is elevated and concern for infiltrate on x-ray. She has been having a cough and she is being treated for pneumonia and CHF Review of Systems Review of Systems: All systems reviewed & are unremarkable except as noted in HPI and below Constitutional: Constitutional: Reports weakness Eyes: Eyes: Denies blurry vision ENT: Reports Normal hearing present Cardiovascular: Cardiovascular: Reports chest pain Respiratory: Respiratory: Reports dyspnea Gastrointestinal: Gastrointestinal: Denies abdominal pain Genitourinary: Genitourinary: Denies flank pain Musculoskeletal: Musculoskeletal: Denies neck pain Integumentary/Breasts: Skin/Breast: Denies dry skin Neurologic: Denies headache(s) Psyc
[2021-03-28 13:46] LABS: Troponin I 0.022 ng/mL (0.000-0.034)
--- NOTE | 2021-03-28 13:50 | PCNSR ---
On 03/28/21, the student, Myra Velasco, provided care and completed [facility] documentation on this patient. I have reviewed the student's documentation and agree with the findings.
--- NOTE | 2021-03-28 15:24 | PM.IMPN ---
Progress Note: A&P Assessment and Plan (1) Pneumonia: Qualifiers: Laterality: unspecified laterality Lung location: unspecified part of lung Pneumonia type: due to unspecified organism Qualified Code(s): J18.9 - Pneumonia, unspecified organism Code(s): J18.9 - Pneumonia, unspecified organism Status: Acute Assessment and Plan: Given the patient's significant leukocytosis in report of coughing and difficulty swallowing with eating and suspect patient has aspiration pneumonia. Patient been placed on empiric antibiotic therapy with Zosyn and vancomycin to cover for healthcare associated pneumonia versus aspiration. Modified barium swallow to evaluate for possible aspiration. Blood cultures are pending. (2) Hyponatremia: Code(s): E87.1 - Hypo-osmolality and hyponatremia Status: Acute Assessment and Plan: Mildly worse than previous values. Nephrology was consulted during prior hospitalization. Possibly due to diuretic use./underlying pneumonia/congestive heart failure Monitor BMP (3) Combined systolic and diastolic congestive heart failure: Qualifiers: Heart failure chronicity: chronic Qualified Code(s): I50.42 - Chronic combined systolic (congestive) and diastolic (congestive) heart failure Code(s): I50.40 - Unspecified combined systolic (congestive) and diastolic (congestive) heart failure Status: Acute Assessment and Plan: Acute on chronic Cardiology on board Will favor diuresis gently she got a dose earlier 40 mg. Ejection fraction 15-20% mild left ventricular enlargement with normal wall thickness severe left ventricular hypokinesis akinesis of the distal half of the ventricle with some sparing of the base 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 Grade 2 diastolic dysfunction left atrial enlargement mild MR moderate TR with moderate hypokinesis moderate pulmonary hypertension 55 mm Hg Cardiology has been consulted appreciate their recommendations (4) Hypoxia: Code(s): R09.02 - Hypoxemia Status: Acute Assessment and Plan: Acute on chronic hypoxic respiratory failure likely due to underlying pneumonia. Will titrate oxygen as tolerated to maintain O2 sats 92 %. CTA to rule out PE (5) Insulin dependent type 2 diabetes mellitus: Code(s): E11.9 - Type 2 diabetes mellitus without complications; Z79.4 - snf (current) use of insulin Status: Chronic Assessment and Plan: Sliding scale insulin (6) DVT prophylaxis: Code(s): Z29.9 - Encounter for prophylactic measures, unspecified Status: Acute Assessment and Plan: Apixaban will resume home dose (7) Acute on chronic systolic (congestive) heart failure: Code(s): I50.23 - Acute on chronic systolic (congestive) heart failure Status: Acute (8) Chest pain: Code(s): R07.9 - Chest pain, unspecified Status: Acute (9) PAF (paroxysmal atrial fibrillation): Code(s): I48.0 - Paroxysmal atrial fibrillation Status: Acute Assessment and Plan: On amiodarone at home along with apixaban and metoprolol (10) LBBB (left bundle branch block): Code(s): I44.7 - Left bundle-branch block, unspecified Status: Acute (11) Decubitus skin ulcer: Code(s): L89.90 - Pressure ulcer of unspecified site, unspecified stage Status: Acute (12) Hypothyroidism: Qualifiers: Hypothyroidism type: unspecified Qualified Code(s): E03.9 - Hypothyroidism, unspecified Code(s): E03.9 - Hypothyroidism, unspecified Status: Chronic (13) C1 cervical fracture: Onset Date: ~01/2021 Code(s): S12.000A - Unspecified displaced fracture of first cervical vertebra, initial encounter for closed fracture Status: Acute Assessment and Plan: Has [place] collar in place Subjective Date/time seen: 03/28/21 15:24 Interval history: HPI: 80-year
[2021-03-28 16:37] LABS: SARS-CoV-2 RNA PCR Negative
[2021-03-28 16:51] LABS: Glucose Point of Care 271 mg/dl (65-105)
[2021-03-28] MEDS: APIXABAN 2.5 MG TABLET PO (17:04)
[2021-03-28] MEDS: OPTI-GEN TAB 1 TABLET PO (17:05)
[2021-03-28] MEDS: MINERAL OIL/WHITE PETROLATUM OINTMENT 1 APPLIC EACH EYE (21:32)
[2021-03-28] MEDS: SACUBITRIL/VALSARTAN 24-26 MG TABLET 1 TAB PO (21:32)
[2021-03-28] MEDS: PANTOPRAZOLE 40 MG TABLET PO (21:32)
[2021-03-28] MEDS: guaiFENesin 12 HR 600 MG TABCR PO (21:32)
[2021-03-28 23:21] LABS: Glucose Point of Care 208 mg/dl (65-105)
[2021-03-29] VITALS (11 sets, daily range): BP systolic 107–127; BP diastolic 42–56; PULSE 84–95; RESP 16–20; TEMP 36.4–36.7; O2SAT 91–99
[2021-03-29] MEDS: ALPRAZolam (*CRX) 0.5 MG TABLET PO (03:18)
[2021-03-29] MEDS: SODIUM CHLOR 3% 15 ML NEB (RESPIRATORY THERAPY) 6 ML INHALATION (05:06)
[2021-03-29] MEDS: LEVOTHYROXINE SODIUM 125 MCG TABLET PO (05:27)
[2021-03-29] MEDS: INSULIN ASPART (*BKC) 100 UNITS/ML SUB-Q ×2 (09:31→12:52)
[2021-03-29 09:32] LABS: Glucose Point of Care 311 mg/dl (65-105)
--- NOTE | 2021-03-29 11:35 | PM.CNNEP ---
Assessment and Plan Assessment and plan (1) Hyponatremia: Code(s): E87.1 - Hypo-osmolality and hyponatremia Status: Acute Assessment and Plan: acute on chronic sodium had improved to 127mmol/L by the time of discharge on last hospitalization chronic component due to severe systolic heart failure acute component due to exacerbation of heart failure, pneumonia and possible free water intake (suspect she was not on fluid restriction at her nursing facility) previous evalution noted normal TSH, cortisol, and negative SPEP + UPEP start fluid restriction diuresis as needed follow repeat sodium levels (2) Pneumonia: Qualifiers: Laterality: unspecified laterality Lung location: unspecified part of lung Pneumonia type: due to unspecified organism Qualified Code(s): J18.9 - Pneumonia, unspecified organism Code(s): J18.9 - Pneumonia, unspecified organism Status: Acute Assessment and Plan: seems apparent by elevated WBC with cough and productive sputum follow blood culture on antibiotics (3) Acute on chronic systolic (congestive) heart failure: Code(s): I50.23 - Acute on chronic systolic (congestive) heart failure Status: Acute Assessment and Plan: Cardiology following continue medical management likely to need cardiac catheterization for further evaluation (4) Diabetes: Code(s): E11.9 - Type 2 diabetes mellitus without complications Status: Chronic Assessment and Plan: follow accuchecks glycemic control Will continue to follow. History of Present Illness Reason for Consult Consult date: 03/29/21 Reason for consult: hyponatremia (acute on chronic) Chief Complaint Chief complaint: Pneumonia History of Present Illness Narrative: Most of the history that I have obtained is from review of electronic medical record as well as my previous interaction with her on her last hospitalization as is difficult to get a full and complete history from the patient due to her waxing and waning mental status. The patient's 80-year-old female with an extensive past medical history as outlined below who presented to [facility] Emergency room from her long-term facility for further evaluation of shortness of breath in association with chest pain. The patient was previously hospitalized about a week to 10 days ago for acute systolic heart failure secondary to her newly discovered cardiomyopathy complicated by her new onset hyponatremia. She was treated with IV diuretics, fluid restriction, and supportive therapy and her sodium level gradually improved as did her respiratory status with interventions to date prior to her being discharged back to her long-term facility. Apparently, at her nursing facility, she complained of intermittent chest pain in association with worsening shortness of breath. Her supplemental oxygen had be increased from her baseline of 2 L of to 4 L but despite this intervention, she still felt short of breath. She also complains of a productive cough as well but denies any overt fevers of or chills. For all these reasons, EMS was called to [facility] and subsequently she was transferred to the emergency room in [facility]. Workup and evaluation emergency room demonstrated the aforementioned complaints of shortness of breath in association with chest pain although she did not complain of chest pain at the time of my evaluation of her. Routine blood tests and imaging studies in the emergency room demonstrated findings consistent with what appeared to be acute exacerbation of her acute systolic heart failure and diastolic heart failure. Routine blood test demonstrated worsening of her hyponatremia since her last hospitalization as well. Given her complex medical history and a constellation of symptoms that led to her presentation, she was admitted the hospital for further evaluation t
--- NOTE | 2021-03-29 11:51 | PM.PNCARD ---
Progress Note: A&P Assessment and Plan (1) LBBB (left bundle branch block): Code(s): I44.7 - Left bundle-branch block, unspecified Status: Acute (2) Acute on chronic systolic (congestive) heart failure: Code(s): I50.23 - Acute on chronic systolic (congestive) heart failure Status: Acute Assessment and Plan: Acute on chronic systolic heart failure. Likely worsened from underlying pneumonia. Will transition metoprolol tartrate to metoprolol succinate 25 mg daily. Entresto 24/26 mg p.o. b.i.d. to be started. She likely needs a coronary angiogram next week to define her anatomy given her severe and new cardiomyopathy. Diuresis as needed. Atorvastatin 10 mg daily. Hold amlodipine. (3) Hyponatremia: Code(s): E87.1 - Hypo-osmolality and hyponatremia Status: Acute Assessment and Plan: Severe. Hospitalist to workup. No follow-up BMP ordered today. Will order a BMP stat. Will consult Dr. Soliz. (4) Atrial fibrillation: Qualifiers: Atrial fibrillation type: unspecified Qualified Code(s): I48.91 - Unspecified atrial fibrillation Code(s): I48.91 - Unspecified atrial fibrillation Status: Chronic Assessment and Plan: On anticoagulation with Eliquis. This will be continued (5) Chronic anticoagulation: Code(s): Z79.01 - shelter (current) use of anticoagulants Status: Chronic Assessment and Plan: No bleeding problems (6) Pneumonia: Qualifiers: Laterality: unspecified laterality Lung location: unspecified part of lung Pneumonia type: due to unspecified organism Qualified Code(s): J18.9 - Pneumonia, unspecified organism Code(s): J18.9 - Pneumonia, unspecified organism Status: Acute Assessment and Plan: On antibiotics. CBC ordered as well. (7) Chest pain: Code(s): R07.9 - Chest pain, unspecified Status: Acute Assessment and Plan: Troponins were negative Subjective Date/time seen: 03/29/21 11:51 Interval history: HPI: 80-year-old female with past medical history of hypertension, hyperlipidemia, diabetes mellitus, atrial fibrillation on chronic anticoagulation and recent diagnosis of cardiomyopathy who presented to the ER from [facility] via EMS due to increased shortness of breath. Date of service 03/29/2021: She is somnolent but awakens. No chest pain, shortness breath Review of Systems Review of Systems: All systems reviewed & are unremarkable except as noted in HPI and below Constitutional: Constitutional: Denies fatigue, Denies headache(s) and Reports weakness Eyes: Eyes: Denies blurry vision ENT: Reports Normal hearing present, Denies headache(s) and Denies neck pain Cardiovascular: Cardiovascular: Reports chest pain and Reports dyspnea Respiratory: Respiratory: Reports dyspnea Gastrointestinal: Gastrointestinal: Denies abdominal pain Genitourinary: Genitourinary: Denies flank pain Musculoskeletal: Musculoskeletal: Denies neck pain Integumentary/Breasts: Skin/Breast: Denies dry skin Neurologic: Reports Normal hearing present, Denies headache(s) and Reports weakness Psychiatric: Psychiatric: Denies anxiety Endocrine: Endocrine: Denies fatigue Hematologic/Lymphatic: Hematologic/Lymphatic: Denies easy bleeding Allergic/Immunologic: Allergic/Immunologic: Denies GI upset with certain foods Exam Narrative: Alert oriented. Appears to be in no acute distress. Appears stated age Const: General: comfortable and no acute distress HENMT: General nose exam: Normal nares present Eyes: Sclera: sclerae normal Neck: Neck: supple and no JVD Chest: Other: She does have reproducible chest wall pain but states that is different than the chest pain she had yesterday Resp: Auscultation: crackles and diminished lung sounds Cardio: Rhythm: regular rhythm and abnormal rhythm irregularly irregular GI: Inspec
--- NOTE | 2021-03-29 11:52 | PCSTNOTE ---
Please refer to the Modified Barium Swallow Evaluation in the EMR.
[2021-03-29 12:05] LABS: Glucose Point of Care 245 mg/dl (65-105)
[2021-03-29 12:27] LABS: Basophils Percent Auto 0.2 % (0.2-1.2); Hematocrit 34.6 % (37.0-47.0); Hemoglobin 11.6 g/dL (12.0-15.0); Immature Granulocyte Absolute 0.05 K/mm3 (0.00-0.031); Immature Granulocyte Percent A 0.4 % (0-0.5); Lymphocytes Absolute Auto 0.64 K/mm3 (0.9-3.2); Lymphocytes Percent Auto 4.8 % (18.3-44.2); Mean Corpuscular HGB Conc 33.5 g/dl (32-36); Mean Corpuscular Hemoglobin 28.9 pg (26-34); Mean Corpuscular Volume 86.1 fl (80-100); Mean Platelet Volume 9.7 fl (7.4-10.4); Monocytes Absolute Auto 1.5 K/mm3 (0.1-0.6); Monocytes Percent Auto 11.1 % (2.6-8.5); Neutrophils Absolute Auto 11.1 K/mm3 (1.3-6.7); Neutrophils Percent Auto 83.5 % (45.5-73.1); Platelet Count Result 271 k/mm3 (150-375); Red Blood Count 4.02 M/mm3 (4.2-5.4); Red Cell Distribution Width 17.6 % (11.5-14.5); White Blood Count 13.3 K/mm3 (4.5-10.0)
--- NOTE | 2021-03-29 12:41 | PM.IMPN ---
Progress Note: A&P Assessment and Plan (1) Pneumonia: Qualifiers: Laterality: unspecified laterality Lung location: unspecified part of lung Pneumonia type: due to unspecified organism Qualified Code(s): J18.9 - Pneumonia, unspecified organism Code(s): J18.9 - Pneumonia, unspecified organism Status: Acute Assessment and Plan: Given the patient's significant leukocytosis in report of coughing and difficulty swallowing with eating and suspect patient has aspiration pneumonia. Patient been placed on empiric antibiotic therapy with Zosyn and vancomycin to cover for healthcare associated pneumonia versus aspiration. Modified barium swallow showed aspiration currently NPO. Blood cultures are pending. (2) Hyponatremia: Code(s): E87.1 - Hypo-osmolality and hyponatremia Status: Acute Assessment and Plan: Mildly worse than previous values. Nephrology was consulted during prior hospitalization. Possibly due to diuretic use./underlying pneumonia/congestive heart failure Monitor BMP (3) Combined systolic and diastolic congestive heart failure: Qualifiers: Heart failure chronicity: chronic Qualified Code(s): I50.42 - Chronic combined systolic (congestive) and diastolic (congestive) heart failure Code(s): I50.40 - Unspecified combined systolic (congestive) and diastolic (congestive) heart failure Status: Acute Assessment and Plan: Acute on chronic Cardiology on board Will favor diuresis gently she got 40 mg Lasix 03/28/2021 Ejection fraction 15-20% mild left ventricular enlargement with normal wall thickness severe left ventricular hypokinesis akinesis of the distal half of the ventricle with some sparing of the base 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 Grade 2 diastolic dysfunction left atrial enlargement mild MR moderate TR with moderate hypokinesis moderate pulmonary hypertension 55 mm Hg Cardiology has been consulted appreciate their recommendations CTA reviewed bilateral pleural effusion with pulmonary edema versus COVID pneumonia picture COVID test did come back negative will fever congestive heart failure given history of cardiomyopathy With aspiration possibility of aspiration pneumonia is also there and could be a concurrent probable Will continue diuresis 40 mg IV daily for now and monitor his chest x-ray Monitor renal function with continued diuresis (4) Hypoxia: Code(s): R09.02 - Hypoxemia Status: Acute Assessment and Plan: Acute on chronic hypoxic respiratory failure likely due to underlying pneumonia. Will titrate oxygen as tolerated to maintain O2 sats 92 %. CTA to rule out PE came back negative for PE however showed bilateral pleural effusion along with multifocal pneumonia versus pulmonary edema (5) Insulin dependent type 2 diabetes mellitus: Code(s): E11.9 - Type 2 diabetes mellitus without complications; Z79.4 - [facility] (current) use of insulin Status: Chronic Assessment and Plan: Sliding scale insulin Start Lantus (6) DVT prophylaxis: Code(s): Z29.9 - Encounter for prophylactic measures, unspecified Status: Acute Assessment and Plan: Apixaban will resume home dose (7) Acute on chronic systolic (congestive) heart failure: Code(s): I50.23 - Acute on chronic systolic (congestive) heart failure Status: Acute (8) Chest pain: Code(s): R07.9 - Chest pain, unspecified Status: Acute (9) PAF (paroxysmal atrial fibrillation): Code(s): I48.0 - Paroxysmal atrial fibrillation Status: Acute Assessment and Plan: On amiodarone at home along with apixaban and metoprolol (10) LBBB (left bundle branch block): Code(s): I44.7 - Left bundle-branch block, unspecified Status: Acute (11) Decubitus skin ulcer: Code(s): L89.90 - Pressure ulcer of unspecified site, unspecified stage Status: Acute
[2021-03-29 12:46] LABS: Anion Gap 8 mmol/L (8-16); Blood Urea Nitrogen 38 mg/dL (7-17); Calcium 8.8 mg/dL (8.4-10.2); Carbon Dioxide 28 mmol/L (22-30); Chloride 84 mmol/L (98-107); Estimated CRCL calculation 30 ml/min; Estimated Glomerular Filt Rate 48; Glucose 268 mg/dL (65-110); Magnesium 1.7 mg/dL (1.6-2.3); Potassium 4.5 mmol/L (3.4-5.0); Sodium 120 mmol/L (137-145)
[2021-03-29] MEDS: FUROSEMIDE INJ 40 MG/4 ML VIAL IV PUSH (13:23)
[2021-03-29] MEDS: INSULIN GLARGINE (*BKC) 100 UNITS/ML 8 UNITS SUB-Q (13:23)
[2021-03-29 14:05] LABS: Creatinine Urine 61.8 mg/dL; Total Protein Urine Random 28 mg/dL; Ur Ttl Prot Creatinine Ratio 0.45 mg/mg (0-0.20)
[2021-03-29 14:10] LABS: Sodium Urine Random 6 meq/L
[2021-03-29 15:16] LABS: Ovalocytes 1+ (NORMAL); Platelet Estimate Adequate (Adequate)
[2021-03-29 16:52] LABS: Glucose Point of Care 184 mg/dl (65-105)
[2021-03-29 18:05] LABS: Sodium 120 mmol/L (137-145)
[2021-03-29] MEDS: MINERAL OIL/WHITE PETROLATUM OINTMENT 1 APPLIC EACH EYE (20:15)
[2021-03-29] MEDS: PANTOPRAZOLE SODIUM IV 40 MG VIAL IV PUSH (20:15)
[2021-03-29] MEDS: LACTATED RINGERS 1,000 ML 50 ML IV CONT (22:29)
[2021-03-29 22:54] LABS: Glucose Point of Care 167 mg/dl (65-105)
[2021-03-30] VITALS (14 sets, daily range): BP systolic 106–118; BP diastolic 35–50; PULSE 80–86; RESP 16–20; TEMP 36.1–36.8; O2SAT 92–100
[2021-03-30 00:38] LABS: Sodium 123 mmol/L (137-145)
[2021-03-30 01:40] LABS: Glucose Point of Care 155 mg/dl (65-105)
[2021-03-30] MEDS: SODIUM CHLOR 3% 15 ML NEB (RESPIRATORY THERAPY) 6 ML INHALATION (05:06)
--- NOTE | 2021-03-30 05:18 | PCRCNOTE ---
3% sodium chloride nebulizer administered. Pt coached on coughing. Unable to produce sputum sample. Pt's cough is weak.
[2021-03-30 05:40] LABS: Glucose Point of Care 177 mg/dl (65-105)
[2021-03-30 06:55] LABS: Basophils Percent Auto 0.2 % (0.2-1.2); Hematocrit 33.5 % (37.0-47.0); Hemoglobin 10.8 g/dL (12.0-15.0); Immature Granulocyte Absolute 0.04 K/mm3 (0.00-0.031); Immature Granulocyte Percent A 0.3 % (0-0.5); Lymphocytes Absolute Auto 1.04 K/mm3 (0.9-3.2); Lymphocytes Percent Auto 8.3 % (18.3-44.2); Mean Corpuscular HGB Conc 32.2 g/dl (32-36); Mean Corpuscular Hemoglobin 27.9 pg (26-34); Mean Corpuscular Volume 86.6 fl (80-100); Mean Platelet Volume 9.9 fl (7.4-10.4); Monocytes Absolute Auto 1.5 K/mm3 (0.1-0.6); Neutrophils Absolute Auto 9.9 K/mm3 (1.3-6.7); Neutrophils Percent Auto 79.2 % (45.5-73.1); Platelet Count Result 254 k/mm3 (150-375); Red Blood Count 3.87 M/mm3 (4.2-5.4); Red Cell Distribution Width 18.1 % (11.5-14.5); White Blood Count 12.5 K/mm3 (4.5-10.0)
[2021-03-30 07:14] LABS: Alanine Aminotransferase 35 U/L (4-35); Albumin Level 3.1 g/dL (3.5-5.1); Alkaline Phosphatase 189 U/L (38-126); Anion Gap 6 mmol/L (8-16); Aspartate Amino Transferase 36 U/L (14-36); Bilirubin,Total 0.8 mg/dL (0.2-1.3); Blood Urea Nitrogen 36 mg/dL (7-17); Calcium 8.5 mg/dL (8.4-10.2); Carbon Dioxide 33 mmol/L (22-30); Chloride 88 mmol/L (98-107); Estimated CRCL calculation 37 ml/min; Estimated Glomerular Filt Rate 60; Glucose 196 mg/dL (65-110); Magnesium 1.8 mg/dL (1.6-2.3); Phosphorus 3.1 mg/dL (2.5-4.5); Potassium 3.6 mmol/L (3.4-5.0); Sodium 127 mmol/L (137-145)
--- NOTE | 2021-03-30 08:43 | PM.IMPN ---
Progress Note: A&P Assessment and Plan (1) Pneumonia: Qualifiers: Laterality: unspecified laterality Lung location: unspecified part of lung Pneumonia type: due to unspecified organism Qualified Code(s): J18.9 - Pneumonia, unspecified organism Code(s): J18.9 - Pneumonia, unspecified organism Status: Acute Assessment and Plan: Continue Zosyn patient appears to be slightly better Given the patient's significant leukocytosis in report of coughing and difficulty swallowing with eating and suspect patient has aspiration pneumonia. Patient been placed on empiric antibiotic therapy with Zosyn and vancomycin to cover for healthcare associated pneumonia versus aspiration. Modified barium swallow showed aspiration currently NPO. Blood cultures are pending. (2) Hyponatremia: Code(s): E87.1 - Hypo-osmolality and hyponatremia Status: Acute Assessment and Plan: To compound this patient is NPO status due to aspiration during swallow study, will continue IV fluids and continue to monitor. Mildly worse than previous values. Nephrology was consulted during prior hospitalization. Possibly due to diuretic use./underlying pneumonia/congestive heart failure Monitor BMP (3) Combined systolic and diastolic congestive heart failure: Qualifiers: Heart failure chronicity: chronic Qualified Code(s): I50.42 - Chronic combined systolic (congestive) and diastolic (congestive) heart failure Code(s): I50.40 - Unspecified combined systolic (congestive) and diastolic (congestive) heart failure Status: Acute Assessment and Plan: Continue to monitor daily intake and output. 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 Grade 2 diastolic dysfunction left atrial enlargement mild MR moderate TR with moderate hypokinesis moderate pulmonary hypertension 55 mm Hg Cardiology has been consulted appreciate their recommendations CTA reviewed bilateral pleural effusion with pulmonary edema versus COVID pneumonia picture COVID test did come back negative will fever congestive heart failure given history of cardiomyopathy With aspiration possibility of aspiration pneumonia is also there and could be a concurrent probable Will continue diuresis 40 mg IV daily for now and monitor his chest x-ray Monitor renal function with continued diuresis (4) Hypoxia: Code(s): R09.02 - Hypoxemia Status: Acute Assessment and Plan: Supplement Oxygen as needed Acute on chronic hypoxic respiratory failure likely due to underlying pneumonia. Will titrate oxygen as tolerated to maintain O2 sats 92 %. CTA to rule out PE came back negative for PE however showed bilateral pleural effusion along with multifocal pneumonia versus pulmonary edema (5) Insulin dependent type 2 diabetes mellitus: Code(s): E11.9 - Type 2 diabetes mellitus without complications; Z79.4 - watermelon inspector (current) use of insulin Status: Chronic Assessment and Plan: Patient currently is NPO due to aspiration Sliding scale insulin Start Lantus (6) DVT prophylaxis: Code(s): Z29.9 - Encounter for prophylactic measures, unspecified Status: Acute Assessment and Plan: Currently on Lovenox due to NPO status. Patient states the no tubes, started Lovenox. Apixaban will resume home dose (7) Acute on chronic systolic (congestive) heart failure: Code(s): I50.23 - Acute on chronic systolic (congestive) heart failure Status: Acute Assessment and Plan: Patient noted to have a positive fluid balance Continue Lasix (8) Chest pain:
[2021-03-30] MEDS: PANTOPRAZOLE SODIUM IV 40 MG VIAL IV PUSH ×2 (09:41→21:17)
--- NOTE | 2021-03-30 12:08 | PM.PNCARD ---
Progress Note: A&P Assessment and Plan (1) LBBB (left bundle branch block): Code(s): I44.7 - Left bundle-branch block, unspecified Status: Acute (2) Acute on chronic systolic (congestive) heart failure: Code(s): I50.23 - Acute on chronic systolic (congestive) heart failure Status: Acute Assessment and Plan: Acute on chronic systolic heart failure. Likely worsened from underlying pneumonia. Continue metoprolol tartrate to metoprolol succinate 25 mg daily. Entresto 24/26 mg p.o. b.i.d. . She likely needs a coronary angiogram next week to define her anatomy given her severe and new cardiomyopathy. continue IV furosemide. Atorvastatin 10 mg daily. will preload and afterload reduced with isosorbide mononitrate 15 mg daily (3) Hyponatremia: Code(s): E87.1 - Hypo-osmolality and hyponatremia Status: Acute Assessment and Plan: Previously severe but better now. (4) Atrial fibrillation: Qualifiers: Atrial fibrillation type: unspecified Qualified Code(s): I48.91 - Unspecified atrial fibrillation Code(s): I48.91 - Unspecified atrial fibrillation Status: Chronic Assessment and Plan: On anticoagulation with Eliquis. This will be continued (5) Chronic anticoagulation: Code(s): Z79.01 - senior care (current) use of anticoagulants Status: Chronic Assessment and Plan: No bleeding problems (6) Pneumonia: Qualifiers: Laterality: unspecified laterality Lung location: unspecified part of lung Pneumonia type: due to unspecified organism Qualified Code(s): J18.9 - Pneumonia, unspecified organism Code(s): J18.9 - Pneumonia, unspecified organism Status: Acute Assessment and Plan: On antibiotics. CBC ordered as well. (7) Chest pain: Code(s): R07.9 - Chest pain, unspecified Status: Acute Assessment and Plan: Troponins were negative Subjective Date/time seen: 03/30/21 12:08 Interval history: HPI: 80-year-old female with past medical history of hypertension, hyperlipidemia, diabetes mellitus, atrial fibrillation on chronic anticoagulation and recent diagnosis of cardiomyopathy who presented to the ER from [facility] via EMS due to increased shortness of breath. Date of service 03/29/2021: She is somnolent but awakens. No chest pain, shortness breath Date of service 03/30/2021: She is feeling better today. She awakens and denies any chest pain or shortness of breath. Review of Systems Review of Systems: All systems reviewed & are unremarkable except as noted in HPI and below Constitutional: Constitutional: Denies fatigue, Denies headache(s) and Reports weakness Eyes: Eyes: Denies blurry vision ENT: Reports Normal hearing present, Denies headache(s) and Denies neck pain Cardiovascular: Cardiovascular: Reports chest pain and Reports dyspnea Respiratory: Respiratory: Reports dyspnea Gastrointestinal: Gastrointestinal: Denies abdominal pain Genitourinary: Genitourinary: Denies flank pain Musculoskeletal: Musculoskeletal: Denies neck pain Integumentary/Breasts: Skin/Breast: Denies dry skin Neurologic: Reports Normal hearing present, Denies headache(s) and Reports weakness Psychiatric: Psychiatric: Denies anxiety Endocrine: Endocrine: Denies fatigue Hematologic/Lymphatic: Hematologic/Lymphatic: Denies easy bleeding Allergic/Immunologic: Allergic/Immunologic: Denies GI upset with certain foods Exam Narrative: Alert oriented. Appears to be in no acute distress. Appears stated age Const: General: comfortable and no acute distress HENMT: General nose exam: Normal nares present Eyes: Sclera: sclerae normal Neck: Neck: supple and no JVD Chest: Other: She does have reproducible chest wall pain but states that is different than the chest pain she had yesterday Resp: Auscultation: crackles and diminished lung sound
[2021-03-30 12:28] LABS: Sodium 124 mmol/L (137-145)
[2021-03-30 12:41] LABS: Glucose Point of Care 189 mg/dl (65-105)
[2021-03-30] MEDS: FUROSEMIDE INJ 40 MG/4 ML VIAL IV PUSH (13:34)
--- NOTE | 2021-03-30 13:37 | PCSTNOTE ---
Attempted tx this am pt was not alert enough for treatment.
--- NOTE | 2021-03-30 14:08 | PM.PNNEP ---
Progress Note: A&P Assessment and Plan (1) Hyponatremia: Code(s): E87.1 - Hypo-osmolality and hyponatremia Status: Acute Assessment and Plan: acute on chronic sodium had improved to 127mmol/L by the time of discharge on last hospitalization (suspect will always have some degree of chronic hyponatremia) chronic component due to severe systolic heart failure acute component due to exacerbation of heart failure, pneumonia and possible free water intake (suspect she was not on fluid restriction at her nursing facility) previous evalution noted normal TSH, cortisol, and negative SPEP + UPEP on fluid restriction diuresis as needed/tolerated follow repeat sodium levels (2) Pneumonia: Qualifiers: Laterality: unspecified laterality Lung location: unspecified part of lung Pneumonia type: due to unspecified organism Qualified Code(s): J18.9 - Pneumonia, unspecified organism Code(s): J18.9 - Pneumonia, unspecified organism Status: Acute Assessment and Plan: seems apparent by elevated WBC with cough and productive sputum follow blood culture on antibiotics (3) Acute on chronic systolic (congestive) heart failure: Code(s): I50.23 - Acute on chronic systolic (congestive) heart failure Status: Acute Assessment and Plan: Cardiology following continue medical management likely to need cardiac catheterization for further evaluation (4) Diabetes: Code(s): E11.9 - Type 2 diabetes mellitus without complications Status: Chronic Assessment and Plan: follow accuchecks glycemic control Will continue to follow. Subjective Date/time seen: 03/30/21 14:08 Overall, seems to be feeling significantly better today (was quite tired and fatigued when I saw her yesterday); no issues/events overnight or earlier this AM; sodium better with current interventions to date. Exam Narrative: General: WD/WN female in NAD Heart: normal S1 and S2; no rub Lungs: bibasilar crackles noted Abdomen: soft, nontender, nondistended, positive bowel sounds Extremities: no cyanosis or clubbing; trace edema Skin: warm and dry Objective Data Vital Signs Vital Signs: Vital Signs Temp Pulse Resp BP Pulse Ox 03/30/21 13:20 93 03/30/21 09:40 92 03/30/21 06:00 36.2 C L 85 20 118/50 L 99 03/30/21 05:17 84 16 03/30/21 05:12 94 03/30/21 05:08 83 16 03/30/21 04:00 85 03/30/21 00:00 86 03/29/21 22:00 36.4 C 95 20 127/56 L 99 03/29/21 20:00 97 03/29/21 16:00 90 03/29/21 15:26 36.7 C 92 18 107/52 L 98 Intake/Output Intake/Output: Intake & Output 03/27/21 03/28/21 03/29/21 03/30/21 23:59 23:59 23:59 23:59 Intake Total 1800 500 100 Balance 1800 500 100 Meds/Results Medications: Active Medications Generic Name Dose Route Start Last Admin Trade Name Freq PRN Reason Stop Dose Admin Acetaminophen 650 mg 03/28/21 05:50 Acetaminophen 325 Mg Tablet PO Q4H PRN Mild Pain (1-3) or Fever Alprazolam 0.5 mg 03/28/21 15:40 03/29/21 03:18 Alprazolam (*Crx) 0.5 Mg Tablet PO 0.5 mg TID PRN Administration Anxiety Amiodarone HCl 100 mg 03/29/21 09:00 03/30/21 09:39 Amiodarone Hcl 100 Mg Tablet PO Not Given DAILY MARITO Apixaban 2.5 mg 03/28/21 17:00 03/30/21 09:39 Apixaban 2.5 Mg Tablet PO Not Given BID MARITO Artificial Tears 1 drop 03/28/21 15:40 Artificial Tears Ophth Soln 15 Ml Bottle EACH EYE Q4H PRN Dry Eye(S) Atorvastatin Calcium 10 mg 03/29/21 18:00 03/29/21 17:20 Atorvastatin 10 Mg Tablet PO Not Given QPM MARITO Dextrose 12.5 gm 03/28/21 06:26 Dextrose 50% 25 Gm/50 Ml Syringe IV PUSH PRN PRN Hypoglycemia Protocol Diphenoxylate HCl/Atropine 1 tablet 03/28/21 15:40 Diphenoxylate/Atropine (*Crx) 2.5 Mg Tablet PO PRN PRN Diarrhea Duloxetine HCl 30 mg 03/29/21 09:
[2021-03-30] MEDS: ENOXAPARIN 80 MG/0.8 ML SYRINGE 65 MG SUB-Q (15:21)
[2021-03-30 16:48] LABS: Glucose Point of Care 205 mg/dl (65-105)
[2021-03-30 18:19] LABS: Glucose Point of Care 206 mg/dl (65-105)
[2021-03-30] MEDS: INSULIN ASPART (*BKC) 100 UNITS/ML SUB-Q (18:21)
[2021-03-30] MEDS: LACTATED RINGERS 1,000 ML 50 ML IV CONT (20:50)
[2021-03-30] MEDS: MINERAL OIL/WHITE PETROLATUM OINTMENT 1 APPLIC EACH EYE (20:50)
[2021-03-30 20:58] LABS: Sodium 125 mmol/L (137-145)
[2021-03-30] MEDS: INSULIN GLARGINE (*BKC) 100 UNITS/ML 9 UNITS SUB-Q (21:10)
[2021-03-30 21:51] LABS: Glucose Point of Care 179 mg/dl (65-105)
[2021-03-31] VITALS (11 sets, daily range): BP systolic 101–113; BP diastolic 45–46; PULSE 78–93; RESP 14–20; TEMP 36.1–36.6; O2SAT 93–100
[2021-03-31] LABS: Glucose Point of Care 162 mg/dl (65-105)
[2021-03-31 01:40] LABS: Vancomycin Trough 11.1 ug/mL (10.0-20.0)
[2021-03-31] MEDS: SODIUM CHLOR 3% 15 ML NEB (RESPIRATORY THERAPY) 6 ML INHALATION (05:57)
[2021-03-31 06:20] LABS: Albumin Level 2.6 g/dL (3.5-5.1); Anion Gap 1 mmol/L (8-16); Blood Urea Nitrogen 21 mg/dL (7-17); Calcium 7.8 mg/dL (8.4-10.2); Carbon Dioxide 37 mmol/L (22-30); Chloride 90 mmol/L (98-107); Estimated CRCL calculation 53 ml/min; Estimated Glomerular Filt Rate > 60; Glucose 190 mg/dL (65-110); Phosphorus 1.9 mg/dL (2.5-4.5); Potassium 2.9 mmol/L (3.4-5.0); Sodium 128 mmol/L (137-145)
[2021-03-31 06:44] LABS: Glucose Point of Care 175 mg/dl (65-105)
[2021-03-31 08:34] LABS: Glucose Point of Care 153 mg/dl (65-105)
[2021-03-31] MEDS: PANTOPRAZOLE SODIUM IV 40 MG VIAL IV PUSH ×2 (09:08→21:06)
[2021-03-31] MEDS: FUROSEMIDE INJ 40 MG/4 ML VIAL IV PUSH (09:08)
--- NOTE | 2021-03-31 09:15 | PM.IMPN ---
Progress Note: A&P Assessment and Plan (1) Pneumonia: Qualifiers: Laterality: unspecified laterality Lung location: unspecified part of lung Pneumonia type: due to unspecified organism Qualified Code(s): J18.9 - Pneumonia, unspecified organism Code(s): J18.9 - Pneumonia, unspecified organism Status: Acute Assessment and Plan: Continue Zosyn patient appears to be slightly better In view of the patient's overall advanced and complicated disease process with a failed swallowing eval decision has been made to place the patient in hospice care she will be going to [facility] I had a conversation over the phone with son Brian and he is on board with this. Given the patient's significant leukocytosis in report of coughing and difficulty swallowing with eating and suspect patient has aspiration pneumonia. Patient been placed on empiric antibiotic therapy with Zosyn and vancomycin to cover for healthcare associated pneumonia versus aspiration. Modified barium swallow showed aspiration currently NPO. Blood cultures are pending. (2) Hyponatremia: Code(s): E87.1 - Hypo-osmolality and hyponatremia Status: Acute Assessment and Plan: To compound this patient is NPO status due to aspiration during swallow study, will continue IV fluids and continue to monitor. Lasix has been discontinued as potentially has been contributing to this. Mildly worse than previous values. Nephrology was consulted during prior hospitalization. Possibly due to diuretic use./underlying pneumonia/congestive heart failure Monitor BMP (3) Combined systolic and diastolic congestive heart failure: Qualifiers: Heart failure chronicity: chronic Qualified Code(s): I50.42 - Chronic combined systolic (congestive) and diastolic (congestive) heart failure Code(s): I50.40 - Unspecified combined systolic (congestive) and diastolic (congestive) heart failure Status: Acute Assessment and Plan: Appreciate cardiology note Follow recommendations Continue to monitor daily intake and output. 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 Grade 2 diastolic dysfunction left atrial enlargement mild MR moderate TR with moderate hypokinesis moderate pulmonary hypertension 55 mm Hg Cardiology has been consulted appreciate their recommendations CTA reviewed bilateral pleural effusion with pulmonary edema versus COVID pneumonia picture COVID test did come back negative will fever congestive heart failure given history of cardiomyopathy With aspiration possibility of aspiration pneumonia is also there and could be a concurrent probable Will continue diuresis 40 mg IV daily for now and monitor his chest x-ray Monitor renal function with continued diuresis (4) Hypoxia: Code(s): R09.02 - Hypoxemia Status: Acute Assessment and Plan: Has not require increased need of oxygen Supplement Oxygen as needed Acute on chronic hypoxic respiratory failure likely due to underlying pneumonia. Will titrate oxygen as tolerated to maintain O2 sats 92 %. CTA to rule out PE came back negative for PE however showed bilateral pleural effusion along with multifocal pneumonia versus pulmonary edema (5) Insulin dependent type 2 diabetes mellitus: Code(s): E11.9 - Type 2 diabetes mellitus without complications; Z79.4 - [facility] (current) use of insulin Status: Chronic Assessment and Plan: Patient currently is NPO due to aspiration Sliding scale insulin Start Lantus (6) DVT prophylaxis: Code(s): Z29.9 - Encounter for prophylactic measures,
--- NOTE | 2021-03-31 09:32 | PM.PNCARD ---
Progress Note: A&P Assessment and Plan (1) LBBB (left bundle branch block): Code(s): I44.7 - Left bundle-branch block, unspecified <LINDA Montes De Oca - Last Filed: 03/31/21 10:24> Status: Acute <LINDA Montes De Oca - Last Filed: 03/31/21 10:24> (2) Acute on chronic systolic (congestive) heart failure: Code(s): I50.23 - Acute on chronic systolic (congestive) heart failure <LINDA Montes De Oca - Last Filed: 03/31/21 10:24> Status: Acute <LINDA Montes De Oca - Last Filed: 03/31/21 10:24> Assessment and Plan: Acute on chronic systolic heart failure. Likely worsened from underlying pneumonia. She likely needs a coronary angiogram to define her anatomy given her severe and new cardiomyopathy. Discussed possible angiogram or nuclear stress testing with her. She is not interested in any diagnostic testing to work up her cardiomyopathy at this time. Will revisit this prior to discharge. LifeVest at discharge? Continue metoprolol succinate 25 mg daily. Continue Entresto 24/26 mg p.o. b.i.d. . continue furosemide 40mg IV daily. Atorvastatin 10 mg daily. Continue isosorbide mononitrate 15 mg daily Daily BMP <LINDA Montes De Oca - Last Filed: 03/31/21 10:24> (3) Hyponatremia: Code(s): E87.1 - Hypo-osmolality and hyponatremia <LINDA Montes De Oca - Last Filed: 03/31/21 10:24> Status: Acute <LINDA Montes De Oca - Last Filed: 03/31/21 10:24> Assessment and Plan: Previously severe but better now. <LINDA Montes De Oca - Last Filed: 03/31/21 10:24> (4) Atrial fibrillation: Qualifiers: Atrial fibrillation type: unspecified Qualified Code(s): I48.91 - Unspecified atrial fibrillation <LINDA Montes De Oca - Last Filed: 03/31/21 10:24> Code(s): I48.91 - Unspecified atrial fibrillation <LINDA Montes De Oca - Last Filed: 03/31/21 10:24> Status: Chronic <LINDA Montes De Oca - Last Filed: 03/31/21 10:24> Assessment and Plan: On anticoagulation with Eliquis. This will be continued <LINDA Montes De Oca - Last Filed: 03/31/21 10:24> (5) Chronic anticoagulation: Code(s): Z79.01 - [employer] (current) use of anticoagulants <LINDA Montes De Oca - Last Filed: 03/31/21 10:24> Status: Chronic <LINDA Montes De Oca - Last Filed: 03/31/21 10:24> Assessment and Plan: No bleeding problems <LINDA Montes De Oca - Last Filed: 03/31/21 10:24> (6) Pneumonia: Qualifiers: Laterality: unspecified laterality Lung location: unspecified part of lung Pneumonia type: due to unspecified organism Qualified Code(s): J18.9 - Pneumonia, unspecified organism <LINDA Montes De Oca - Last Filed: 03/31/21 10:24> Code(s): J18.9 - Pneumonia, unspecified organism <LINDA Montes De Oca - Last Filed: 03/31/21 10:24> Status: Acute <LINDA Montes De Oca - Last Filed: 03/31/21 10:24> Assessment and Plan: On antibiotics. CBC ordered as well. <LINDA Montes De Oca - Last Filed: 03/31/21 10:24> (7) Chest pain: Code(s): R07.9 - Chest pain, unspecified <LINDA Montes De Oca - Last Filed: 03/31/21 10:24> Status: Acute <BLOSSOM Montes De OcaC - Last Filed: 03/31/21 10:24> Assessment and Plan: Troponins were negative <LINDA Montes De Oca - Last Filed: 03/31/21 10:24> (8) Hypokalemia: Code(s): E87.6 - Hypokalemia <LINDA Montes De Oca - Last Filed: 03/31/21 10:24> Status: Acute <LINDA Montes De Oca - Last Filed: 03/31/21 10:24> Assessment and Plan: 2.9 this morning. KCL 40 mEq IV ordered. Repeat BMP this afternoon. Daily BMP in a.m. as well while on IV diuretic. <LINDA Montes De Oca - Last Filed: 03/31/21 10:24> Additional Plan Attending addendum: I agree with the above documentation and plan of care as ou
[2021-03-31 11:17] LABS: Glucose Point of Care 175 mg/dl (65-105)
[2021-03-31] MEDS: SODIUM CHLORIDE 0.9% IV 1,000 ML 65 ML IV CONT (13:55)
[2021-03-31] MEDS: HYDROmorphone HCL INJ (*CRX) 1 MG/ML SYR 0.5 MG IV PUSH (13:56)
[2021-03-31] MEDS: ENOXAPARIN 80 MG/0.8 ML SYRINGE 65 MG SUB-Q (14:00)
--- NOTE | 2021-03-31 15:25 | PCOTNOTE ---
Per RN, pts. family setting up hospice care, not seen for OT today for this reason. Will resume plan of care if appropriate.
--- NOTE | 2021-03-31 15:45 | P.PNNP_ITS ---
Progress Note: A&P Assessment and Plan (1) Hyponatremia: Code(s): E87.1 - Hypo-osmolality and hyponatremia Status: Acute Assessment and Plan: * acute on chronic * sodium had improved to 127mmol/L by the time of discharge on last hospitalization (suspect will always have some degree of chronic hyponatremia) * chronic component due to severe systolic heart failure * acute component due to exacerbation of heart failure, pneumonia and possible free water intake (suspect she was not on fluid restriction at her nursing facility) * previous evalution noted normal TSH, cortisol, and negative SPEP + UPEP * on fluid restriction * diuresis as needed/tolerated * follow repeat sodium levels (2) Pneumonia: Qualifiers: Laterality: unspecified laterality Lung location: unspecified part of lung Pneumonia type: due to unspecified organism Qualified Code(s): J18.9 - Pneumonia, unspecified organism Code(s): J18.9 - Pneumonia, unspecified organism Status: Acute Assessment and Plan: * seems apparent by elevated WBC with cough and productive sputum * follow blood cultures * on antibiotics * related to aspiration(?) (3) Acute on chronic systolic (congestive) heart failure: Code(s): I50.23 - Acute on chronic systolic (congestive) heart failure Status: Acute Assessment and Plan: * Cardiology following * continue medical management * likely to need cardiac catheterization for further evaluation (4) Diabetes: Code(s): E11.9 - Type 2 diabetes mellitus without complications Status: Chronic Assessment and Plan: * follow accuchecks * glycemic control Will continue to follow. Subjective Date/time seen: 03/31/21 15:45 Was not very conversive with me at the time or my visit; nursing reports that patient has bee quite irritable; sodium remains stable if not better at this time; failed swallow evaluation but refusing any type of feeding tube placement at this time. Exam Narrative: General: WD/WN female in NAD Heart: normal S1 and S2; no rub Lungs: scant bibasilar crackles noted Abdomen: soft, nontender, nondistended, positive bowel sounds Extremities: no cyanosis or clubbing; trace edema Skin: warm and intact Objective Data Vital Signs Vital Signs: Vital Signs Temp Pulse Resp BP Pulse Ox 03/31/21 14:00 36.1 C L 91 14 113/45 L 93 03/31/21 12:00 93 03/31/21 08:00 83 11/22/21 06:23 81 16 03/31/21 05:58 79 16 03/31/21 05:37 36.6 C 79 18 101/46 L 100 03/31/21 04:00 86 03/31/21 00:00 80 03/30/21 21:59 36.8 C 83 18 117/42 L 100 03/30/21 20:00 81 03/30/21 19:51 36.1 C L 84 16 106/35 L 96 Intake/Output Intake/Output: Intake & Output 03/28/21 03/29/21 03/30/21 03/31/21 23:59 23:59 23:59 23:59 Intake Total 6493 031 5302 1850 Output Total 1200 400 Balance 1800 500 0 1450 Meds/Results Medications: Active Medications Generic Name Dose Route Start Last Admin Trade Name Freq PRN Reason Stop Dose Admin Acetaminophen 650 mg 03/28/21 05:50 Acetaminophen 325 Mg Tablet PO Q4H PRN Mild Pain (1-3) or Fever Alprazolam 0.5 mg 03/28/21 15:4
--- NOTE | 2021-03-31 15:45 | PM.PNNEP ---
Progress Note: A&P Assessment and Plan (1) Hyponatremia: Code(s): E87.1 - Hypo-osmolality and hyponatremia Status: Acute Assessment and Plan: acute on chronic sodium had improved to 127mmol/L by the time of discharge on last hospitalization (suspect will always have some degree of chronic hyponatremia) chronic component due to severe systolic heart failure acute component due to exacerbation of heart failure, pneumonia and possible free water intake (suspect she was not on fluid restriction at her nursing facility) previous evalution noted normal TSH, cortisol, and negative SPEP + UPEP on fluid restriction diuresis as needed/tolerated follow repeat sodium levels (2) Pneumonia: Qualifiers: Laterality: unspecified laterality Lung location: unspecified part of lung Pneumonia type: due to unspecified organism Qualified Code(s): J18.9 - Pneumonia, unspecified organism Code(s): J18.9 - Pneumonia, unspecified organism Status: Acute Assessment and Plan: seems apparent by elevated WBC with cough and productive sputum follow blood cultures on antibiotics related to aspiration(?) (3) Acute on chronic systolic (congestive) heart failure: Code(s): I50.23 - Acute on chronic systolic (congestive) heart failure Status: Acute Assessment and Plan: Cardiology following continue medical management likely to need cardiac catheterization for further evaluation (4) Diabetes: Code(s): E11.9 - Type 2 diabetes mellitus without complications Status: Chronic Assessment and Plan: follow accuchecks glycemic control Will continue to follow. Subjective Date/time seen: 03/31/21 15:45 Was not very conversive with me at the time or my visit; nursing reports that patient has bee quite irritable; sodium remains stable if not better at this time; failed swallow evaluation but refusing any type of feeding tube placement at this time. Exam Narrative: General: WD/WN female in NAD Heart: normal S1 and S2; no rub Lungs: scant bibasilar crackles noted Abdomen: soft, nontender, nondistended, positive bowel sounds Extremities: no cyanosis or clubbing; trace edema Skin: warm and intact Objective Data Vital Signs Vital Signs: Vital Signs Temp Pulse Resp BP Pulse Ox 03/31/21 14:00 36.1 C L 91 14 113/45 L 93 03/31/21 12:00 93 03/31/21 08:00 83 03/31/21 06:23 81 16 03/31/21 05:58 79 16 03/31/21 05:37 36.6 C 79 18 101/46 L 100 03/31/21 04:00 86 03/31/21 00:00 80 03/30/21 21:59 36.8 C 83 18 117/42 L 100 03/30/21 20:00 81 03/30/21 19:51 36.1 C L 84 16 106/35 L 96 Intake/Output Intake/Output: Intake & Output 03/28/21 03/29/21 03/30/21 03/31/21 23:59 23:59 23:59 23:59 Intake Total 5264 159 8852 1850 Output Total 1200 400 Balance 1800 500 0 1450 Meds/Results Medications: Active Medications Generic Name Dose Route Start Last Admin Trade Name Freq PRN Reason Stop Dose Admin Acetaminophen 650 mg 03/28/21 05:50 Acetaminophen 325 Mg Tablet PO Q4H PRN Mild Pain (1-3) or Fever Alprazolam 0.5 mg 03/28/21 15:40 03/29/21 03:18 Alprazolam (*Crx) 0.5 Mg Tablet PO 0.5 mg TID PRN Administration Anxiety Amiodarone HCl 100 mg 03/29/21 09:00 03/31/21 07:51 Amiodarone Hcl 100 Mg Tablet PO Not Given DAILY MARITO Apixaban 2.5 mg 03/28/21 17:00 03/31/21 14:01 Apixaban 2.5 Mg Tablet PO Not Given BID MARITO Artificial Tears 1 drop 03/28/21 15:40 Artificial Tears Ophth Soln 15 Ml Bottle EACH EYE Q4H PRN Dry Eye(S) Atorvastatin Calcium 10 mg 03/29/21 18:00 03/31/21 14:01 Atorvastatin 10 Mg Tablet PO Not Given QPM MARITO Dextrose 12.5 gm 03/28/21 06:26 Dextrose 50% 25 Gm/50 Ml Syringe IV PUSH PRN PRN Hypoglycemia Protocol Diphenoxylate HCl/Atropine 1 tablet 03/28/21 15:40 Di
[2021-03-31 16:11] LABS: Glucose Point of Care 236 mg/dl (65-105)
[2021-03-31] MEDS: INSULIN ASPART (*BKC) 100 UNITS/ML SUB-Q (17:16)
[2021-03-31 17:47] LABS: Anion Gap 6 mmol/L (8-16); Blood Urea Nitrogen 18 mg/dL (7-17); Calcium 7.8 mg/dL (8.4-10.2); Carbon Dioxide 34 mmol/L (22-30); Chloride 88 mmol/L (98-107); Estimated CRCL calculation 53 ml/min; Estimated Glomerular Filt Rate > 60; Glucose 258 mg/dL (65-110); Potassium 3.8 mmol/L (3.4-5.0); Sodium 128 mmol/L (137-145)
[2021-03-31] MEDS: INSULIN GLARGINE (*BKC) 100 UNITS/ML 9 UNITS SUB-Q (21:05)
[2021-03-31] MEDS: MINERAL OIL/WHITE PETROLATUM OINTMENT 1 APPLIC EACH EYE (21:06)
[2021-03-31 23:18] LABS: Pneumococcal Antigen Urine Not Detected (Not Detected)
[2021-04-01] VITALS (11 sets, daily range): BP systolic 113–128; BP diastolic 49–51; PULSE 78–100; RESP 14–28; TEMP 35.8–36.5; O2SAT 92–100
[2021-04-01 00:01] LABS: Glucose Point of Care 166 mg/dl (65-105)
[2021-04-01 06:17] LABS: Legionella pneumophila Ag Ur Not Detected (Not Detected)
[2021-04-01 06:25] LABS: Glucose Point of Care 121 mg/dl (65-105)
[2021-04-01 07:11] LABS: Albumin Level 3.1 g/dL (3.5-5.1); Anion Gap 4 mmol/L (8-16); Blood Urea Nitrogen 15 mg/dL (7-17); Calcium 8.1 mg/dL (8.4-10.2); Carbon Dioxide 33 mmol/L (22-30); Chloride 89 mmol/L (98-107); Estimated CRCL calculation 53 ml/min; Estimated Glomerular Filt Rate > 60; Glucose 120 mg/dL (65-110); Phosphorus 1.6 mg/dL (2.5-4.5); Potassium 3.2 mmol/L (3.4-5.0); Sodium 126 mmol/L (137-145)
[2021-04-01] MEDS: SODIUM CHLORIDE 0.9% IV 1,000 ML 65 ML IV CONT (08:03)
[2021-04-01] MEDS: PANTOPRAZOLE SODIUM IV 40 MG VIAL IV PUSH (08:04)
--- NOTE | 2021-04-01 08:12 | PM.IMPN ---
Subjective Date/time seen: 04/01/21 08:12 Objective Data Vital Signs Vital Signs: Vital Signs - 24 hr 03/31/21 12:00 03/31/21 14:00 03/31/21 20:00 Temperature 96.9 F L Pulse Rate 93 91 78 Respiratory Rate 14 Blood Pressure 113/45 L Pulse Oximetry 93 94 03/31/21 20:43 03/31/21 22:00 04/01/21 00:00 Temperature 97 F L Pulse Rate 87 78 Respiratory Rate 20 Blood Pressure 108/45 L Pulse Oximetry 96 98 04/01/21 04:00 04/01/21 05:59 04/01/21 07:59 Temperature 96.7 F L Pulse Rate 85 89 85 Respiratory Rate 14 Blood Pressure 128/49 L Pulse Oximetry 93 Intake/Output Intake/Output: Intake & Output 03/29/21 03/30/21 03/31/21 04/01/21 23:59 23:59 23:59 23:59 Intake Total 500 1200 2200 1350 Output Total 1200 400 Balance 500 0 1800 1350 Meds/Results Medications: Active Medications Generic Name Dose Route Start Last Admin Trade Name Freq PRN Reason Stop Dose Admin Acetaminophen 650 mg 03/28/21 05:50 Acetaminophen 325 Mg Tablet PO Q4H PRN Mild Pain (1-3) or Fever Alprazolam 0.5 mg 03/28/21 15:40 03/29/21 03:18 Alprazolam (*Crx) 0.5 Mg Tablet PO 0.5 mg TID PRN Administration Anxiety Amiodarone HCl 100 mg 03/29/21 09:00 04/01/21 07:59 Amiodarone Hcl 100 Mg Tablet PO Not Given DAILY MARITO Apixaban 2.5 mg 03/28/21 17:00 04/01/21 08:00 Apixaban 2.5 Mg Tablet PO Not Given BID MARITO Artificial Tears 1 drop 03/28/21 15:40 Artificial Tears Ophth Soln 15 Ml Bottle EACH EYE Q4H PRN Dry Eye(S) Atorvastatin Calcium 10 mg 03/29/21 18:00 03/31/21 14:01 Atorvastatin 10 Mg Tablet PO Not Given QPM MARITO Dextrose 12.5 gm 03/28/21 06:26 Dextrose 50% 25 Gm/50 Ml Syringe IV PUSH PRN PRN Hypoglycemia Protocol Diphenoxylate HCl/Atropine 1 tablet 03/28/21 15:40 Diphenoxylate/Atropine (*Crx) 2.5 Mg Tablet PO PRN PRN Diarrhea Duloxetine HCl 30 mg 03/29/21 09:00 03/30/21 09:40 Duloxetine Hcl 30 Mg Capsule.Dr PO Not Given DAILY MARITO Enoxaparin Sodium 65 mg 03/30/21 14:59 03/31/21 14:00 Enoxaparin 80 Mg/0.8 Ml Syringe SUB-Q 65 mg Q24H MARITO Administration Glucagon 1 mg 03/28/21 06:26 Glucagon For Inj 1 Mg Vial IM PRN PRN Hypoglycemia Protocol Glucose 15 gm 03/28/21 06:26 Glucose Oral Gel 15 Gm Of Glucse In 37.5 Gm Tube PO PRN PRN Hypoglycemia Protocol Guaifenesin 600 mg 03/28/21 21:00 03/30/21 09:40 Guaifenesin 12 Hr 600 Mg Tabcr PO Not Given Q12HR MARITO Dextrose 1,000 mls @ 100 mls/hr 03/28/21 06:26 Dextrose 5% 1,000 Ml IVPB PRN PRN Hypoglycemia Protocol Vancomycin HCl 1,000 mg in 250 mls @ 250 mls/hr 03/31/21 02:00 03/31/21 22:52 Vancomycin 1,000 Mg/D5w 250 Ml IVPB Infused Q18H MARITO Infusion Acetaminophen 1,000 mg in 100 mls @ 400 mls/hr 03/31/21 11:29 04/01/21 06:36 Ofirmev 1,000 Mg Ivpb IVPB 04/01/21 11:28 Infused Q6H PRN Infusion Pain Rated 4-6 Sodium Chloride 1,000 mls @ 65 mls/hr 03/31/21 12:45 04/01/21 08:03 Normal Saline Iv IV CONT 65 mls/hr .[id number] MARITO Administration Piperacillin Sod/Tazobactam Sod 4.5 gm in 100 mls @ 200 mls/hr 04/01/21 06:00 04/01/21 06:00 Zosyn 4.5 Gm/D5w 100 Ml IVPB 04/01/21 13:00 Infused Q6HR MARITO Infusion Piperacillin Sod/Tazobactam 100 mls @ 200 mls/hr 04/01/21 18:00 Sod 4.5 gm/ Sodium Chloride IVPB Q6HR [facility] Insulin Aspart 3 - 6 units 03/29/21 18:00 04/01/21 06:23 Insulin Aspart (*Bkc) 100 Units/Ml SUB-Q Not Given Q6H [facility] Protocol Insulin Glargine 9 units 03/29/21 21:00 03/31/21 21:05 Insulin Glargine (*Bkc) 100 Units/Ml 0.15 units/kg (9 units) 9 units SUB-Q Administration HS [facility] Isosorbide Mononitrate 15 mg 03/30/21 12:15 03/30/21 13:28 Isosorbide Mononitrate 15 Mg Tab.Er.24h PO Not Given QAM [facility] Levalbuterol HCl 1.25 mg 03/28/21 06:17 Levalbuterol
[2021-04-01 08:47] LABS: Basophils Percent Auto 0.1 % (0.2-1.2); Eosinophils Percent Auto 0.5 % (0-4.4); Hematocrit 31.1 % (37.0-47.0); Hemoglobin 10.1 g/dL (12.0-15.0); Immature Granulocyte Absolute 0.02 K/mm3 (0.00-0.031); Immature Granulocyte Percent A 0.3 % (0-0.5); Lymphocytes Absolute Auto 0.94 K/mm3 (0.9-3.2); Mean Corpuscular HGB Conc 32.5 g/dl (32-36); Mean Corpuscular Hemoglobin 27.9 pg (26-34); Mean Corpuscular Volume 85.9 fl (80-100); Mean Platelet Volume 9.3 fl (7.4-10.4); Monocytes Absolute Auto 0.9 K/mm3 (0.1-0.6); Monocytes Percent Auto 11.8 % (2.6-8.5); Neutrophils Absolute Auto 5.9 K/mm3 (1.3-6.7); Neutrophils Percent Auto 75.3 % (45.5-73.1); Platelet Count Result 256 k/mm3 (150-375); Red Blood Count 3.62 M/mm3 (4.2-5.4); Red Cell Distribution Width 17.7 % (11.5-14.5); White Blood Count 7.8 K/mm3 (4.5-10.0)
[2021-04-01 09:11] LABS: Anion Gap 4 mmol/L (8-16); Blood Urea Nitrogen 17 mg/dL (7-17); Calcium 7.8 mg/dL (8.4-10.2); Carbon Dioxide 33 mmol/L (22-30); Chloride 91 mmol/L (98-107); Estimated CRCL calculation 63 ml/min; Estimated Glomerular Filt Rate > 60; Glucose 113 mg/dL (65-110); Potassium 3.1 mmol/L (3.4-5.0); Sodium 128 mmol/L (137-145)
[2021-04-01] MEDS: POTASSIUM PHOS,M-BASIC-D-BASIC 20 MMOL in SODIUM CHLORIDE 0.9% IV 250 ML 64.17 MMOL IVPB (10:11)
--- NOTE | 2021-04-01 11:26 | PM.PNNEP ---
Progress Note: A&P Assessment and Plan (1) Hyponatremia: Code(s): E87.1 - Hypo-osmolality and hyponatremia Status: Acute Assessment and Plan: acute on chronic sodium had improved to 127mmol/L by the time of discharge on last hospitalization (suspect will always have some degree of chronic hyponatremia) chronic component due to severe systolic heart failure acute component due to exacerbation of heart failure, pneumonia and possible free water intake (suspect she was not on fluid restriction on discharge) previous evaluation noted normal TSH, cortisol, and negative SPEP + UPEP on fluid restriction diuresis as needed/tolerated follow repeat sodium levels (2) Pneumonia: Qualifiers: Laterality: unspecified laterality Lung location: unspecified part of lung Pneumonia type: due to unspecified organism Qualified Code(s): J18.9 - Pneumonia, unspecified organism Code(s): J18.9 - Pneumonia, unspecified organism Status: Acute Assessment and Plan: seems apparent by elevated WBC with cough and productive sputum follow blood cultures on antibiotics related to aspiration(?) (3) Acute on chronic systolic (congestive) heart failure: Code(s): I50.23 - Acute on chronic systolic (congestive) heart failure Status: Acute Assessment and Plan: Cardiology following continue medical management likely to need cardiac catheterization for further evaluation (4) Diabetes: Code(s): E11.9 - Type 2 diabetes mellitus without complications Status: Chronic Assessment and Plan: follow accuchecks glycemic control Will continue to follow. Subjective Date/time seen: 04/01/21 11:26 States she has some shortness of breath today but no other acute complaints; failed swallow evaluation and refusing any type of NG/doboff tube placement at this time; nursing tells me that there ongoing discussions with family as well as patient regarding comfort care measures. Exam Narrative: General: WD/WN female in NAD Heart: normal S1 and S2; no rub Lungs: scant bibasilar crackles noted Abdomen: soft, nontender, nondistended, positive bowel sounds Extremities: no cyanosis or clubbing; trace edema Skin: no rash Objective Data Vital Signs Vital Signs: Vital Signs Temp Pulse Resp BP Pulse Ox 04/01/21 08:00 90 93 04/01/21 07:59 85 04/01/21 05:59 35.9 C L 89 14 128/49 L 93 04/01/21 04:00 85 04/01/21 00:00 78 03/31/21 22:00 36.1 C L 87 20 108/45 L 98 03/31/21 20:43 96 03/31/21 20:00 78 94 03/31/21 14:00 36.1 C L 91 14 113/45 L 93 03/31/21 12:00 93 Intake/Output Intake/Output: Intake & Output 03/29/21 03/30/21 03/31/21 04/01/21 23:59 23:59 23:59 23:59 Intake Total 500 1200 2200 1350 Output Total 1200 400 Balance 500 0 1800 1350 Meds/Results Medications: Active Medications Generic Name Dose Route Start Last Admin Trade Name Freq PRN Reason Stop Dose Admin Acetaminophen 650 mg 03/28/21 05:50 Acetaminophen 325 Mg Tablet PO Q4H PRN Mild Pain (1-3) or Fever Alprazolam 0.5 mg 03/28/21 15:40 03/29/21 03:18 Alprazolam (*Crx) 0.5 Mg Tablet PO 0.5 mg TID PRN Administration Anxiety Amiodarone HCl 100 mg 03/29/21 09:00 04/01/21 07:59 Amiodarone Hcl 100 Mg Tablet PO Not Given DAILY MARITO Apixaban 2.5 mg 03/28/21 17:00 04/01/21 08:00 Apixaban 2.5 Mg Tablet PO Not Given BID MARITO Artificial Tears 1 drop 03/28/21 15:40 Artificial Tears Ophth Soln 15 Ml Bottle EACH EYE Q4H PRN Dry Eye(S) Atorvastatin Calcium 10 mg 03/29/21 18:00 03/31/21 14:01 Atorvastatin 10 Mg Tablet PO Not Given QPM MARITO Dextrose 12.5 gm 03/28/21 06:26 Dextrose 50% 25 Gm/50 Ml Syringe IV PUSH PRN PRN Hypoglycemia Protocol Diphenoxylate HCl/Atropine 1 tablet 03/28/21 15:40 Diphenoxylate/Atropine (*Crx) 2.5 M
[2021-04-01 12:06] LABS: Glucose Point of Care 111 mg/dl (65-105)
[2021-04-01] MEDS: FUROSEMIDE INJ 40 MG/4 ML VIAL 20 MG IV PUSH (12:29)
--- NOTE | 2021-04-01 13:53 | PM.PNCARD ---
Progress Note: A&P Assessment and Plan (1) LBBB (left bundle branch block): Code(s): I44.7 - Left bundle-branch block, unspecified <LINDA Montes De Oca - Last Filed: 04/01/21 14:47> Status: Acute <LINDA Montes De Oca - Last Filed: 04/01/21 14:47> (2) Acute on chronic systolic (congestive) heart failure: Code(s): I50.23 - Acute on chronic systolic (congestive) heart failure <LINDA Montes De Oca - Last Filed: 04/01/21 14:47> Status: Acute <LINDA Montes De Oca - Last Filed: 04/01/21 14:47> Assessment and Plan: Acute on chronic systolic heart failure. Likely worsened from underlying pneumonia. She likely needs a coronary angiogram to define her anatomy given her severe and new cardiomyopathy. Discussed possible angiogram or nuclear stress testing with her yesterday - she is not interested in any diagnostic testing to work up her cardiomyopathy at this time. Continue metoprolol succinate 25 mg daily. Continue Entresto 24/26 mg p.o. b.i.d. Furosemide has been discontinued due to hyponatremia. However, given worsening pulmonary exam and SOB, will give 20mg IV lasix now Atorvastatin 10 mg daily. Continue isosorbide mononitrate 15 mg daily Daily BMP Chest x ray <LINDA Montes De Oca - Last Filed: 04/01/21 14:47> (3) Hyponatremia: Code(s): E87.1 - Hypo-osmolality and hyponatremia <LINDA Montes De Oca - Last Filed: 04/01/21 14:47> Status: Acute <LINDA Montes De Oca - Last Filed: 04/01/21 14:47> Assessment and Plan: Previously severe but better now. <LINDA Montes De Oca - Last Filed: 04/01/21 14:47> (4) Atrial fibrillation: Qualifiers: Atrial fibrillation type: unspecified Qualified Code(s): I48.91 - Unspecified atrial fibrillation <LINDA Montes De Oca - Last Filed: 04/01/21 14:47> Code(s): I48.91 - Unspecified atrial fibrillation <LINDA Montes De Oca - Last Filed: 04/01/21 14:47> Status: Chronic <LINDA Montes De Oca - Last Filed: 04/01/21 14:47> Assessment and Plan: On anticoagulation with Eliquis. This will be continued <LINDA Montes De Oca - Last Filed: 04/01/21 14:47> (5) Chronic anticoagulation: Code(s): Z79.01 - correction (current) use of anticoagulants <LINDA Montes De Oca - Last Filed: 04/01/21 14:47> Status: Chronic <LINDA Montes De Oca - Last Filed: 04/01/21 14:47> Assessment and Plan: No bleeding problems <LINDA Montes De Oca - Last Filed: 04/01/21 14:47> (6) Pneumonia: Qualifiers: Laterality: unspecified laterality Lung location: unspecified part of lung Pneumonia type: due to unspecified organism Qualified Code(s): J18.9 - Pneumonia, unspecified organism <LINDA Montes De Oca - Last Filed: 04/01/21 14:47> Code(s): J18.9 - Pneumonia, unspecified organism <LINDA Montes De Oca - Last Filed: 04/01/21 14:47> Status: Acute <LINDA Montes De Oca - Last Filed: 04/01/21 14:47> Assessment and Plan: On antibiotics. ? worsening contributing to shortness of breath <BLOSSOM Montes De OcaC - Last Filed: 04/01/21 14:47> (7) Chest pain: Code(s): R07.9 - Chest pain, unspecified <LINDA Montes De Oca - Last Filed: 04/01/21 14:47> Status: Acute <LINDA Montes De Oca - Last Filed: 04/01/21 14:47> Assessment and Plan: Troponins were negative <LINDA Montes De Oca - Last Filed: 04/01/21 14:47> (8) Hypokalemia: Code(s): E87.6 - Hypokalemia <LINDA Montes De Oca - Last Filed: 04/01/21 14:47> Status: Acute <LINDA Montes De Oca - Last Filed: 04/01/21 14:47> Assessment and Plan: Better yesterday after K+ repleted but low again this a.m. This is being repleted <LINDA Montes De Oca - Last Filed: 04/01/21 14:47> Additional Plan After patient seen and examined,
[2021-04-01] MEDS: FUROSEMIDE INJ 40 MG/4 ML VIAL IV PUSH (14:14)
--- NOTE | 2021-04-01 15:58 | PM.DS ---
DS: Admitting Diagnosis Discharge Date 03/31/2021 Admitting Diagnosis Aspiration Pneumonia DS: Discharge Diagnosis Discharge Diagnosis (1) Aspiration pneumonia: Code(s): J69.0 - Pneumonitis due to inhalation of food and vomit Status: Acute Assessment and Plan: Had swallow study which notes aspiration and lungs appear to have aspiration pneumonia. Patient has been on broad spectrum antibiotics. Patient has decided to be discharged to hospice. (2) Heart failure: Qualifiers: Heart failure chronicity: acute on chronic Heart failure type: unspecified Qualified Code(s): I50.9 - Heart failure, unspecified Code(s): I50.9 - Heart failure, unspecified Status: Acute Assessment and Plan: EF 15-20% with diastolic dysfunction with patient requiring 2L NC at baseline. Cardiology has been following. Patient currently slightly volume overloaded on CXR today. Gave furosemide 40 mg IV x1 and then scheduled a second dose of furosemide 40 mg IV to help with increased oxygen requirement as the patient was up to 6L but is now down to 5. (3) Hyponatremia: Code(s): E87.1 - Hypo-osmolality and hyponatremia Status: Acute Assessment and Plan: Persistent since last discharge. Nephrology consulted. Likely due to heart failure and will be chronic. Patient has good mentation without major symptoms from the hyponatremia at this time. (4) Diabetes: Code(s): E11.9 - Type 2 diabetes mellitus without complications Status: Chronic Assessment and Plan: Patient taking glargine 8 units qhs at home. Will continue this dose inpatient. (5) Atrial fibrillation: Qualifiers: Atrial fibrillation type: unspecified Qualified Code(s): I48.91 - Unspecified atrial fibrillation Code(s): I48.91 - Unspecified atrial fibrillation Status: Chronic Assessment and Plan: On metoprolol and apixaban. Due aspiration risk patient is currently on therapeutic enoxaparin. (6) Hypothyroidism: Qualifiers: Hypothyroidism type: unspecified Qualified Code(s): E03.9 - Hypothyroidism, unspecified Code(s): E03.9 - Hypothyroidism, unspecified Status: Chronic Assessment and Plan: On levothyroxine 125 mcg daily at home. Continue levothyroxine. (7) C1 cervical fracture: Onset Date: ~01/2021 Code(s): S12.000A - Unspecified displaced fracture of first cervical vertebra, initial encounter for closed fracture Status: Acute Assessment and Plan: Has collar and will continue wearing this. (8) Acute hypoxemic respiratory failure: Code(s): J96.01 - Acute respiratory failure with hypoxia Status: Acute Assessment and Plan: Noted to have increasing oxygen requirement above her baseline 2L NC on admission. Likely due to aspiration pneumonia and acute decompensated heart failure with HFrEF with volume overload. The patient was diuresed but this is somewhat limited due to the hyponatremia. Will monitor. DS: Summary Hospital Course Reason for hospitalization: Aspiration pneumonia and volume overload. Hospital Course: Patient presented to the ED with increasing oxygen requirement above her baseline of 2L NC. Patient found to have aspiration pneumonia and started on vancomycin and zosyn. CTA ruled out pulmonary embolism. Patient had swallow study and was found to be aspirating. Blood and urine culture showed no growth. Due to this patient was made NPO, so therapeutic enoxaparin was started instead of oral apixaban. Patient also had some volume overload due to her heart failure and received furosemide for diuresis. After discussion, patient elected to go home with hospice. Due to her inability to swallow without aspirating, the apixaban was discontinued and the patient and hospice decided to do low dose aspirin until she is re-evaluated by the primary care physician. Time Spent with Patient Ti
[2021-04-01 17:59] LABS: Glucose Point of Care 61 mg/dl (65-105)
[2021-04-01 22:40] LABS: Glucose Point of Care 55 mg/dl (65-105)
--- NOTE | 2021-04-01 23:16 | PC.NURSE ---
[facility] nurse called and due to being late and ambulance still has not arived for transfer to home family would like to wait till am for transfer,
--- NOTE | 2021-04-01 23:18 | PC.NURSE ---
Per [facility] call, family requests discharge to be held until the morning. [facility] scheduled for 0730 on 04/02/21.
[2021-04-02] MEDS: ACETAMINOPHEN 500 MG TABLET 1000 MG PO (03:10)
[2021-04-02 06:44] LABS: Basophils Percent Auto 0.1 % (0.2-1.2); Eosinophils Percent Auto 0.3 % (0-4.4); Hematocrit 36.6 % (37.0-47.0); Hemoglobin 11.8 g/dL (12.0-15.0); Immature Granulocyte Absolute 0.04 K/mm3 (0.00-0.031); Immature Granulocyte Percent A 0.4 % (0-0.5); Lymphocytes Absolute Auto 1.21 K/mm3 (0.9-3.2); Lymphocytes Percent Auto 12.6 % (18.3-44.2); Mean Corpuscular HGB Conc 32.2 g/dl (32-36); Mean Corpuscular Hemoglobin 27.8 pg (26-34); Mean Corpuscular Volume 86.3 fl (80-100); Mean Platelet Volume 9.2 fl (7.4-10.4); Monocytes Absolute Auto 1.1 K/mm3 (0.1-0.6); Monocytes Percent Auto 11.7 % (2.6-8.5); Neutrophils Absolute Auto 7.2 K/mm3 (1.3-6.7); Neutrophils Percent Auto 74.9 % (45.5-73.1); Platelet Count Result 255 k/mm3 (150-375); Red Blood Count 4.24 M/mm3 (4.2-5.4); Red Cell Distribution Width 18.3 % (11.5-14.5); White Blood Count 9.6 K/mm3 (4.5-10.0)
[2021-04-02 07:00] LABS: Vancomycin Trough 8.7 ug/mL (10.0-20.0)
[2021-04-02 07:04] LABS: Anion Gap 5 mmol/L (8-16); Blood Urea Nitrogen 17 mg/dL (7-17); Calcium 8.3 mg/dL (8.4-10.2); Carbon Dioxide 34 mmol/L (22-30); Chloride 94 mmol/L (98-107); Estimated CRCL calculation 63 ml/min; Estimated Glomerular Filt Rate > 60; Glucose 86 mg/dL (65-110); Phosphorus 2.1 mg/dL (2.5-4.5); Potassium 2.7 mmol/L (3.4-5.0); Sodium 133 mmol/L (137-145)
[2021-04-02 17:55] LABS: Chloride Rand Ur <20 mmol/L (32-290); Creatinine Random Urine 52 mg/dL (20-275)
== END 2021-04-02 08:00 | disposition hospice, home (50) | DRG 177 ==
LOC: ANHED 02:46 → ANH3MEDSUR 03:48
PROVIDERS: Internal Medicine; Internal Medicine Cardiovascular Disease; Internal Medicine Nephrology; Nurse Practitioner; Admitting Provider Internal Medicine; Emergency Provider Emergency Medicine; PCP Physician Assistant; Visit Provider Family Medicine
DX: I50.23 Acute on chronic systolic (congestive) heart failure (principal); J69.0 Pneumonitis due to inhalation of food and vomit; J96.21 Acute and chronic respiratory failure with hypoxia; E87.1 Hypo-osmolality and hyponatremia; S12.000A Unspecified displaced fracture of first cervical vertebra, initial encounter for closed fracture; I42.9 Cardiomyopathy, unspecified; X58.XXXA Exposure to other specified factors, initial encounter; I11.0 Hypertensive heart disease with heart failure; Z20.822 Contact with and (suspected) exposure to COVID-19; L89.152 Pressure ulcer of sacral region, stage 2; E87.6 Hypokalemia; Z66 Do not resuscitate; I27.20 Pulmonary hypertension, unspecified; I44.7 Left bundle-branch block, unspecified; R07.9 Chest pain, unspecified; I48.0 Paroxysmal atrial fibrillation; E78.5 Hyperlipidemia, unspecified; E11.9 Type 2 diabetes mellitus without complications; K21.9 Gastro-esophageal reflux disease without esophagitis; Z79.01 Long term (current) use of anticoagulants; Z79.4 Long term (current) use of insulin; Z79.84 Long term (current) use of oral hypoglycemic drugs; Z86.718 Personal history of other venous thrombosis and embolism; Z87.891 Personal history of nicotine dependence; Z98.42 Cataract extraction status, left eye; Z98.41 Cataract extraction status, right eye
CPT/HCPCS: 36415; 36600; 51701; 71045; 71275; 80048; 80053; 80069; 80202; 81001; 82436; 82570; 82805; 82948; 83605; 83735; 83880; 84100; 84156; 84295; 84300; 84484; 85025; 87040; 87086; 87449; 87899; 92526; 92611; 93005; 94640; 96365; 96366; 96367; 96375; 97163; 97165; 97530; 99285; A9270; C9113; C9803; G0378; J0131; J1170; J1650; J1815; J1940; J2405; J2543; J3370; J3480; J7030; J7050; J7120; Q9967; U0003; U0005